=== PATIENT | female | born 1950 | race Caucasian/White ===

== ENCOUNTER 2016-10-27 20:30 | Inpatient (IN) ==
[2016-10-27] MEDS ORDERED: Naloxone 0.4 MG/ML INJ IVP PRN (23:33)
[2016-10-27] MEDS: D5% in 0.45% NACL 1,000 ML IVC SCH (23:58)
[2016-10-28] MEDS: Nicotine 21 MG PATCH.TD24 TD SCH ×3 (00:20→15:44)
[2016-10-28] MEDS: *HR* Morphine 2 MG/ML SYRINGE IVP PRN ×3 (00:20→15:43)
[2016-10-28] MEDS ORDERED: Albuterol 2.5 MG/3 ML NEBULIZER IH PRN (03:26)
--- NOTE | 2016-10-28 03:32 | Internal Med History&Physical ---
Date of Encounter: 10/28/16 Time of Encounter: 00:30 Assessment and Plan (1) Liver masses Current visit: Yes Status: Acute CT abdomen/pelvis shows incidental finding of a 5 x 4*5 cm mass in the right liver lobe, with another small mass superior to this, with compression of hepatic ducts and intrahepatic biliary dilatation. Radiology report suggests metastatic disease but no primary was identified on CT abdomen. Noted to have elevated liver enzymes and total bilirubin. Patient may need percutaneous liver mass biopsy for definitive diagnosis. Given her family history of colon cancer , she may also benefit from repeat colonoscopy. Last colonoscopy was about 3 years ago at which time it was normal, per patient. Will consult GI for further recommendations and workup. Check CEA levels. (2) Abdominal pain Current visit: Yes Status: Acute May be viral gastroenteritis or related to underlying liver mass. Keep nothing by mouth for now, continue IV hydration. Pain control with when necessary IV morphine. Supportive care. Qualifiers: Abdominal location: generalized Qualified Code(s): R10.84 - Generalized abdominal pain (3) Hypokalemia Current visit: Yes Status: Acute May be due to GI losses from diarrhea. Replace with oral potassium chloride in the emergency room, monitor serum potassium. (4) COPD (chronic obstructive pulmonary disease) Current visit: Yes Status: Chronic Not in acute exacerbation. Continue when necessary bronchodilators and supplemental oxygen. Qualifiers: COPD type: unspecified COPD Qualified Code(s): J44.9 - Chronic obstructive pulmonary disease, unspecified (5) Tobacco abuse Current visit: Yes Status: Chronic Smoking cessation counseling given. Patient is not ready to quit smoking at this time. Requests nicotine transdermal patch. (6) Ulcerative colitis Current visit: Yes Status: Chronic continue Sulfasalazine; Qualifiers: Ulcerative colitis location: unspecified ulcerative colitis location Digestive disease complication type: without complication Qualified Code(s): K51.90 - Ulcerative colitis, unspecified, without complications (7) Bipolar disease, chronic Current visit: Yes Status: Chronic resume home meds; (8) Depression Current visit: Yes Status: Chronic Qualifiers: Depression Type: unspecified Qualified Code(s): F32.9 - Major depressive disorder, single episode, unspecified (9) Anxiety Current visit: Yes Status: Chronic Internal Medicine - H&P: HPI Chief complaint: Abdominal pain Admitted From: Emergency Dept Plans for Post Hospital Care: Home History of present illness: Ms. Talamantes is a 66 year old female with history of ulcerative colitis, SLE presents with complaints of diffuse abdominal pain and diarrhea for one week. Patient reports sudden onset of 10/10 diffuse burning and sharp abdominal pain, associated with multiple very soft nonbloody bowel movements per day. No associated nausea, vomiting, fever or chills. No melena or hematochezia. Patient is on treatment for ulcerative colitis and reports no history of frequent diarrhea or hematochezia. No urinary complaints. No similar previous episodes. Past Med Surg Social Fam HX - Past Medical History Medical history: arthritis, COPD, hyperlipidemia, valvular heart disease Psychiatric history: anxiety, bipolar, depression - Past Surgical History Surgical History: appendectomy, knee replacement (Bilateral) - Social History Smoking Status: Current every day smoker Packs per day: 1 1/2 Smokeless Tobacco Status: No Alcohol use: none Drug use: none Occupational status: disabled Current living situation: Home, With Family Activity Level: Independent ambulation Recent Out of Country Travel Within the Last 8 Weeks: No Exposure or Possible Exposure to Illness During Travel: No - Family History Brother Hx Family Cancer: Yes (Colon cancer) Mother Hx Family Endocrine Disorder: Yes (DM) Internal Medicine - H&P: Meds Albuterol Sulfate [Proair HFA] 2 puff IH Q4HR PRN 02/14/15 [History] Buspirone [Buspar] 15 mg PO BID 02/14/15 [History] ClonazePAM [Klonopin] 1 mg PO TID 02/14/15 [History] Sulfasalazine [Azulfidine] 500 mg PO Q6HR 02/14/15 [History] Diltiazem CD (24hr) [Cardizem CD] 180 mg PO DAILY 08/25/15 [History] Pravastatin Sodium [Pravachol] 40 mg PO QAM 08/25/15 [History] traZODone [TraZODone] 50 mg PO HS 09/20/15 [History] lamoTRIgine [Lamictal Xr] 200 mg PO DAILY 01/19/16 [History] ARIPiprazole [Abilify] 10 mg PO DAILY 10/27/16 [History] Benzonatate [Tessalon] 200 mg PO Q8H PRN 10/27/16 [History] Duloxetine HCl [Cymbalta] 120 mg PO DAILY 10/27/16 [History] Calcium 600 + Vit D Tablet 600 unit PO DAILY 10/28/16 [History] Gabapentin [Neurontin] 100 mg PO BID 10/28/16 [History] Vitamin E 100 unit PO DAILY 10/28/16 [History] Allergies griseofulvin [From Fulvicin P/G] Allergy (Verified 09/04/16 21:40) Hives acetaminophen [From Percocet] Adverse Reaction (Verified 09/04/16 21:40) Itching Oxycodone [From Percocet] Adverse Reaction (Verified 09/04/16 21:40) Itching All Systems PM: A 10-system review of systems was performed and is negative for pertinent findings except as documented above in the HPI. - Constitutional Constitutional: no chills, no fever(s), no night sweats - EENT Eyes: no change in vision, no discharge, no pain, no photophobia Ears: no ear discharge, no ear pain, no tinnitus Nose, mouth and throat: no dysphagia, no nasal discharge, no neck pain, no sore throat - Cardiovascular Cardiovascular ROS IM: no chest pain, no diaphoresis, no dyspnea, no lightheadedness, no palpitations, no syncope - Respiratory Respiratory: no cough, no dyspnea, no wheezing, no excessive phlegm production - Gastrointestinal Gastrointestinal: abdominal pain, loose stools - Genitourinary Genitourinary: no change in urinary stream, no dysuria, no flank pain, no hematuria - Musculoskeletal Musculoskeletal ROS IM: no numbness, no tingling - Integumentary Integumentary IM: no rash, no unusual bruising - Neurological Neurological ROS: no confusion, no convulsions, no focal weakness, no numbness, no tingling, no tremor(s) - Hematologic/Lymphatic Hematologic/Lymphatic: no easy bruising - Constitutional Vitals: Temp Pulse Resp BP Pulse Ox 98.2 F 63 14 133/70 89 10/27/16 22:05 10/27/16 22:05 10/27/16 22:05 10/27/16 22:05 10/27/16 22:05 General appearance: Present: mild distress (Due to pain), A&O X 3, answers questions appropriately - Respiratory Respiratory exam: Present: CTAB. Absent: accessory muscle use, rales, rhonchi, wheezes - Cardiovascular Cardiovascular exam: Present: RRR, +S1, +S2. Absent: diastolic murmur, gallop, rubs, systolic murmur - GI/Abdominal GI/Abdominal exam: Present: normal bowel sounds, soft (Diffuse mild tenderness, no guarding or rigidity), no peritoneal signs. Absent: distended, tenderness - Extremities Exam Extremities exam: Present: full ROM, warm, radial pulses palpable and symetrical. Absent: calf tenderness, cyanotic, pedal edema - Neurological Exam Neurological exam: Present: CN II-XII intact, oriented X3, no focal deficits. Absent: pronater drift, facial droop, speech deficit - Skin Skin exam: Present: dry, intact
[2016-10-28] MEDS: *HR* Heparin 5,000 UNIT/ML VIAL SQ SCH ×2 (06:05→18:25)
[2016-10-28] MEDS: sulfaSALAzine 500 MG TABLET PO SCH ×4 (06:05→23:52)
[2016-10-28 06:45] LABS: Basophils # 0.1 K/mcL (0.0-0.2); Basophils % 1.3 %; Eosinophils % 0.1 %; Hematocrit 36.8 % (35.3-44.9); Hemoglobin 12.7 g/dL (11.5-15.4); Immature Granulocytes % 0.3 % (0-4); Lymphocytes # 1.7 K/mcL (0.6-4.6); Lymphocytes % 24.3 %; Mean Corpuscular HGB Conc 34.5 g/dL (31.6-35.5); Mean Corpuscular Hemoglobin 32.3 pg (28.0-33.3); Mean Corpuscular Volume 93.6 fL (83.0-100.0); Mean Platelet Volume 11.6 fL (9.4-12.4); Monocytes # 0.6 K/mcL (0.0-1.3); Monocytes % 8.3 %; Neutrophils # 4.5 K/mcL (1.6-8.9); Platelet Count 205 K/mcL (140-400); Red Blood Count 3.93 M/mcL (3.82-4.97); Red Cell Distribution Width 16.3 % (11.5-14.5); Segmented Neutrophils % 65.7 %
[2016-10-28] MEDS: Diltiazem CD (24hr) 180 MG CAPSULE PO SCH (08:25)
[2016-10-28] MEDS: lamoTRIgine 100 MG TABLET PO SCH (08:25)
[2016-10-28] MEDS: ARIPiprazole 10 MG TABLET PO SCH (08:25)
[2016-10-28] MEDS: clonazePAM 1 MG TABLET PO SCH ×3 (08:25→20:41)
[2016-10-28 09:04] LABS: Prothrombin Time 10.9 Seconds (9.4-12.1)
--- NOTE | 2016-10-28 10:29 | Pre-Sedation Evaluation ---
Pre-sedation evaluation - Pre-sedation checklist Recent Vitals: Last Vital Signs Temp 98.4 F 10/28/16 06:41 Pulse 62 10/28/16 06:41 Resp 20 10/28/16 06:41 BP 136/82 10/28/16 06:41 Pulse Ox 93 10/28/16 06:41 Airway Assessment: Patient can open mouth completely, TMJ function normal, Micrognathia (under-bite, receding chin) absent, Neck with adequate range of motion Dentition: No loose teeth or bridges Possible difficult airway: No ASA Classification *see protocol: CLASS III-Severe systemic disease Plan of Care: Pt appropriate candidate for procedure/moderate/conscious sedation , Risks/benefits of procedure/sedation discussed w/ patient/family
[2016-10-28 12:01] LABS: Carcinoembryonic Antigen 54.3 ng/mL (0-5.0)
[2016-10-28 12:14] LABS: Alanine Aminotransferase 173 Units/L (0-55); Albumin 2.8 g/dL (3.5-5.0); Albumin/Globulin Ratio 0.8 (1.1-2.2); Alkaline Phosphatase 744 Units/L (38-126); BUN/Creatinine Ratio 9 (6-26); Blood Urea Nitrogen 6 mg/dL (7-20); Calcium 9.1 mg/dL (8.6-10.8); Carbon Dioxide 24 mEq/L (19-29); Chloride 105 mEq/L (98-109); Globulin 3.7 g/dL (2.4-3.5); Glucose 157 mg/dL (70-99); Magnesium 1.9 mg/dL (1.6-2.6); Osmolality,Calculated 291 (280-300); Phosphorous 3.4 mg/dL (2.3-4.7); Potassium 3.1 mEq/L (3.5-4.5); Sodium 140 mEq/L (136-145); Total Protein 6.5 g/dL (6.0-8.3); eGFR For African Americans > 60 (> 60); eGFR For Non-African Americans > 60 (> 60)
[2016-10-28 12:16] LABS: Bilirubin,Total 9.5 mg/dL (0.2-1.2)
[2016-10-28 12:29] LABS: Aspartate Amino Transferase 105 Units/L (5-34)
[2016-10-28] MEDS ORDERED: 0.9 % Sodium Chloride 500 ML ONE (13:57)
--- NOTE | 2016-10-28 14:16 | Gastroenterology Consult Note ---
<Seymour Jeffries - Last Filed: 10/28/16 14:11> Date of Encounter: 10/28/16 Time of Encounter: 11:40 - Assessment and plan (1) Liver masses Current Visit: Yes Status: Acute Assessment and plan: CT A/P shows a right hepatic mass measuring 4.3 x 4.7 x 4.4 cm, small second right hepatic lesion more superiorly which likely represent metastatic foci and would be amenable to percutaneous sampling. Moderate intrahepatic biliary dilation due to mass effect in the right hepatic and left hepatic and/or common hepatic duct. No evidence of primary malignancy elsewhere in the abdomen or pelvis. Check MRI abdomen. May need ERCP tomorrow. Consider colonoscopy as well. CEA elevated at 54.3, CA 19-9 and AFP pending. (2) Abdominal pain Current Visit: Yes Status: Acute Assessment and plan: Likely secondary to liver masses. Continue pain control. Qualifiers: Abdominal location: generalized Qualified Code(s): R10.84 - Generalized abdominal pain (3) Ulcerative colitis Current Visit: Yes Status: Chronic Assessment and plan: Continue sulfasalazine. Qualifiers: Ulcerative colitis location: unspecified ulcerative colitis location Digestive disease complication type: without complication Qualified Code(s): K51.90 - Ulcerative colitis, unspecified, without complications - Time Spent With Patient Total time spent is greater than 50% in coordination of care (as documented) at patient's floor/unit and/or counseling patient: GI History of Present Illness - Data of Consult Patient: new to practice Consult date: 10/28/16 Requesting Physician: Derrick Lemus MD - Consult Narrative Reason for consult: Liver mass History of present illness: Ms. Talamantes is a 66 year old female with PMHx of arthritis, COPD, HLD, ulcerative colitis who presented with c/o diffuse abdominal pain and diarrhea for one week. Patient reports sudden onset of 10/10 diffuse burning and sharp abdominal pain, associated with multiple very soft nonbloody bowel movements per day. He denies fever, chills, chest pain, nausea, vomiting, hematemesis, melena, or hematochezia. Patient is on treatment for ulcerative colitis and reports no history of frequent diarrhea or hematochezia. CT A/P shows a right hepatic mass measuring 4.3 x 4.7 x 4.4 cm, small second right hepatic lesion more superiorly which likely represent metastatic foci and would be amenable to percutaneous sampling. Moderate intrahepatic biliary dilation due to mass effect in the right hepatic and left hepatic and/or common hepatic duct. No evidence of primary malignancy elsewhere in the abdomen or pelvis. On 10/27, TB 9 , AST 119, ALT 187, alkaline phosphatase 772. Procedures: Colonoscopy 05/16/2014 Dr. Vale: Nonbleeding internal hemorrhoids. NSAIDs: None Anticoagulation: None Past Med Surg Social Fam HX - Past Medical History Medical history: arthritis, COPD, hyperlipidemia, valvular heart disease Psychiatric history: anxiety, bipolar, depression - Past Surgical History Surgical History: appendectomy, knee replacement (Bilateral) - Social History Smoking Status: Current every day smoker Packs per day: 1 1/2 Smokeless Tobacco Status: No Alcohol use: none Drug use: none - Family History Brother Hx Family Cancer: Yes (Colon cancer) Mother Hx Family Endocrine Disorder: Yes (DM) - Gastrointestinal Gastrointestinal: Present: as per HPI - Constitutional Constitutional: as per HPI - EENT Eyes: as per HPI Ears: Present: as per HPI Nose, mouth and throat: Present: as per HPI - Cardiovascular Cardiovascular ROS: Present: as per HPI - Respiratory Respiratory IM: Present: as per HPI - Genitourinary Genitourinary: Absent: change in color, Urinary frequency - Neurological ROS Neurological GI: Present: as per HPI - Hematologic/Lymphatic Hematologic/Lymphatic pediatric: Present: as per HPI - Musculoskeletal Musculoskeletal ROS GI: Present: as per HPI - Integumentary Integumentary GI: Present: as per HPI - Psychiatric ROS Psychiatric GI: Present: as per HPI - Endocrine Endocrine IM: Present: as per HPI - Constitutional Vitals: Temp Pulse Resp BP Pulse Ox 98.3 F 69 20 133/82 93 10/28/16 12:01 10/28/16 12:01 10/28/16 12:01 10/28/16 12:01 10/28/16 12:01 General appearance: Present: cooperative, A&O X 3, no acute distress, answers questions appropriately - Head Head exam: Present: atraumatic, normocephalic - Eye Eye exam: Present: normal appearance, sclera anicteric - ENT ENT exam: Present: mucous membranes dry - Neck Neck exam general surgery: Present: normal inspection, trachea midline - Respiratory Respiratory exam: Present: CTAB. Absent: rales, rhonchi - Cardiovascular Cardiovascular exam: Present: RRR, +S1, +S2 - GI/Abdominal GI/Abdominal exam: Present: soft, tenderness (RUQ tenderness), no peritoneal signs. Absent: distended, firm, guarding - Rectal Rectal exam: Present: deferred - Extremities Exam Extremities exam: Present: warm - Neurological Exam Neurological exam: Present: no focal deficits - Psychiatric Psychiatric exam: Present: normal affect, normal mood - Skin Skin exam: Present: dry, intact, normal color, warm Results - Labs CBC & Chem 7: 10/28/16 05:37 10/28/16 08:32 Labs: Last Result Calcium 9.1 mg/dL (8.6-10.8) 10/28/16 08:32 Entire Visit Hgb 12.7 g/dL (11.5-15.4) 10/28/16 05:37 Hct 36.8 % (35.3-44.9) 10/28/16 05:37 PT 10.9 Seconds (9.4-12.1) 10/28/16 08:37 Total Bilirubin 9.5 mg/dL (0.2-1.2) H 10/28/16 08:32 AST 105 Units/L (5-34) H 10/28/16 08:32 ALT 173 Units/L (0-55) H 10/28/16 08:32 Carcinoembryonic Ag 54.3 ng/mL (0-5.0) H 10/28/16 08:32 - ABG ABG results: PT/INR, D-dimer PT 10.9 Seconds (9.4-12.1) 10/28/16 08:37 Consult Discharge Plan - Plan Referrals: Marybel Head MD [Primary Care Provider] - <Sondra Mckeon - Last Filed: 10/28/16 17:39> Date of Encounter: 10/28/16 Time of Encounter: 17:00 - Time Spent With Patient Total time spent is greater than 50% in coordination of care (as documented) at patient's floor/unit and/or counseling patient: GI History of Present Illness - Data of Consult Requesting Physician: Derrick Lemus MD - Consult Narrative History of present illness: Ms. Talamantes is a 66 year old female - Constitutional Vitals: Temp Pulse Resp BP Pulse Ox 97.9 F 67 18 161/91 92 10/28/16 16:42 10/28/16 16:42 10/28/16 16:42 10/28/16 16:42 10/28/16 16:42 Results - Labs CBC & Chem 7: 10/28/16 05:37 10/28/16 08:32 Labs: Last Result Calcium 9.1 mg/dL (8.6-10.8) 10/28/16 08:32 Entire Visit Hgb 12.7 g/dL (11.5-15.4) 10/28/16 05:37 Hct 36.8 % (35.3-44.9) 10/28/16 05:37 PT 10.9 Seconds (9.4-12.1) 10/28/16 08:37 Total Bilirubin 9.5 mg/dL (0.2-1.2) H 10/28/16 08:32 AST 105 Units/L (5-34) H 10/28/16 08:32 ALT 173 Units/L (0-55) H 10/28/16 08:32 Carcinoembryonic Ag 54.3 ng/mL (0-5.0) H 10/28/16 08:32 - ABG ABG results: PT/INR, D-dimer PT 10.9 Seconds (9.4-12.1) 10/28/16 08:37 - Impressions Impressions Liver Biopsy CT 10/28/16 00:00 IMPRESSION: Successful CT guided core biopsy liver mass. D/ / Richard Quinn MD / Richard Quinn MD Interpreting Provider: Richard Quinn MD Abdomen MRI 10/28/16 10:51 IMPRESSION: 1. There is a 4.4 cm T2 hypoenhancing hepatic mass with a central scar centered within segment VIII which remains indeterminate. There is significant respiratory motion which limits evaluation on the postcontrast images. Recommend further evaluation with tissue sampling as differential considerations include metastatic disease or cholangiocarcinoma. This does not have the typical enhancing pattern for hepatocellular carcinoma. An adjacent 1.0 cm nodule more superiorly appears to be a continuation of the dominant mass on the MRI. 2. Moderate intrahepatic biliary dilation progressed since 2016. The common bile duct is otherwise normal in caliber. There is questionable focal narrowing along the hepatic duct as well as mid common bile duct. Recommend evaluation with ERCP to evaluate for underlying structures in this region. 3. Mild periportal adenopathy, nonspecific. D/ / 10/28/2016 14:36:17 Leslie Zuluaga MD / [employer] Interpreting Provider: Leslie Zuluaga MD - Attending Attestation I examined this patient and my medical decision-making was reviewed with the PLANT WRAPPER/PA/Advanced Practice Nurse/Resident Physician. I agree with the documented findings, disposition and treatment plan as described except to the extent set forth below. Patient with a liver lesion and jaundice. MRI suspicious for obstruction at the level of common hepatic duct. Patient will have an ERCP done tomorrow with possible stent placement. The liver lesions has been biopsied and wait for the results
[2016-10-28] MEDS: *HR* FentaNYL (PF) 100 MCG/2 ML VIAL IVP PRN ×2 (14:30→14:37)
[2016-10-28] MEDS: *HR* Midazolam HCl 2 MG/2 ML VIAL IVP PRN ×2 (14:31→14:36)
--- NOTE | 2016-10-28 14:48 | Oncology Inp Consult Note ---
<Chan Haddad - Last Filed: 10/28/16 14:43> Date of Encounter: 10/28/16 Time of Encounter: 14:43 Assessment and Plan (1) Liver masses Status: Acute Assessment and plan: CT scan of the abdomen with IV and oral contrast showed incidental finding of right hepatic mass, small second right hepatic lesion more superiorly, likely represent metastatic foci and there is moderate intrahepatic biliary dilatation due to mass effect on the right hepatic and left hepatic and/or common hepatic duct, no evidence of a primary malignancy elsewhere within the abdomen or pelvis. MRI of abdomen showed 4.4 cm T2 hypoenhancing hepatic mass with central scar centered within segment viii which remains indeterminate, which does not have the typical enhancing pattern for hepatocellular carcinoma. GI service was consulted and patient may undergo ERCP tomorrow, IR has been consulted for biopsy of the liver, CA 19-9, AFP, chromogranin A and CA 27.29 are pending at this time, CEA was elevated at 54.3. Will make further recommendations after the diagnostic test results. - Data of Consult Patient: new to practice Consult date: 10/28/16 Requesting Physician: Derrick Lemus MD Primary Care Provider: Marybel Head - Consult Narrative Reason for consult: Liver mass History of present illness: Ms. Talamantes is a 66 year old female with history of ulcerative colitis and lupus who presents to ER with chief complaint of diffuse abdominal pain and diarrhea for [address] scan of the abdomen with IV and oral contrast showed incidental finding of right hepatic mass, small second right hepatic lesion more superiorly, likely represent metastatic foci and there is moderate intrahepatic biliary dilatation due to mass effect on the right hepatic and left hepatic and/or common hepatic duct, no evidence of a primary malignancy elsewhere within the abdomen or pelvis. MRI of abdomen showed 4.4 cm T2 hypoenhancing hepatic mass with central scar centered within segment viii which remains indeterminate, which does not have the typical enhancing pattern for hepatocellular carcinoma. Hematology/oncology service was consulted for further recommendation. Past Med Surg Social Fam HX - Past Medical History Medical history: arthritis, COPD, hyperlipidemia, valvular heart disease Psychiatric history: anxiety, bipolar, depression - Past Surgical History Surgical History: appendectomy, knee replacement (Bilateral) - Social History Smoking Status: Current every day smoker Packs per day: 1 1/2 Smokeless Tobacco Status: No Alcohol use: none Drug use: none - Family History Brother Hx Family Cancer: Yes (Colon cancer) Mother Hx Family Endocrine Disorder: Yes (DM) Medications and Allergies Albuterol Sulfate [Proair HFA] 2 puff IH Q4HR PRN 02/14/15 [History] Buspirone [Buspar] 15 mg PO BID 02/14/15 [History] ClonazePAM [Klonopin] 1 mg PO TID 02/14/15 [History] Sulfasalazine [Azulfidine] 500 mg PO Q6HR 02/14/15 [History] Diltiazem CD (24hr) [Cardizem CD] 180 mg PO DAILY 08/25/15 [History] Pravastatin Sodium [Pravachol] 40 mg PO QAM 08/25/15 [History] traZODone [TraZODone] 100 mg PO HS 09/20/15 [History] ARIPiprazole [Abilify] 10 mg PO DAILY 10/27/16 [History] Duloxetine HCl [Cymbalta] 120 mg PO DAILY 10/27/16 [History] Calcium Carbonate/Vitamin D3 [Calcium 600 + Vit D Tablet] 1 each PO DAILY [History] Gabapentin [Neurontin] 100 mg PO BID 10/28/16 [History] Vitamin E 100 unit PO DAILY 10/28/16 [History] lamoTRIgine [Lamotrigine] 200 mg PO DAILY 10/28/16 [History] Allergies griseofulvin [From Fulvicin P/G] Allergy (Verified 10/28/16 12:40) Hives acetaminophen [From Percocet] Adverse Reaction (Verified 10/28/16 12:40) Itching Oxycodone [From Percocet] Adverse Reaction (Verified 10/28/16 12:40) Itching Review of systems: Patient admits diffuse abdominal pain but denies fever, chill, headache, productive cough, shortness of breath, chest pain, constipation, diarrhea or dysuria. Oncology - Exam - Constitutional Vitals: Temp Pulse Resp BP Pulse Ox 98.3 F 78 20 144/74 96 10/28/16 12:01 10/28/16 14:39 10/28/16 14:39 10/28/16 14:39 10/28/16 14:39 General appearance: cooperative, no acute distress, obese - Head Head exam: Present: atraumatic, normal inspection, normocephalic - Eye Eye exam: Present: EOMI, PERRL Pupils: Present: PERRL - ENT ENT exam: Present: mucous membranes dry, normal exam - Neck Neck exam: Present: full ROM. Absent: lymphadenopathy, tenderness - Respiratory Respiratory exam: Present: CTAB. Absent: accessory muscle use, rales, respiratory distress, wheezes - Cardiovascular Cardiovascular exam: Present: RRR, +S1, +S2. Absent: clicks, gallop, rubs, systolic murmur - GI/Abdominal GI/Abdominal exam: Present: normal bowel sounds, soft, tenderness (Slightly with palpation diffusely). Absent: distended, firm, guarding, rebound, rigid - Extremities Exam Extremities exam: Present: normal inspection. Absent: calf tenderness, tenderness - Neurological Exam Neurological exam: Present: alert, CN II-XII intact, oriented X3, no focal deficits. Absent: altered Oncology - Results - Labs Labs: Short CBC 10/28/16 Range/Units 05:37 WBC 6.9 (4.3-11.1) K/mcL Hgb 12.7 (11.5-15.4) g/dL Hct 36.8 (35.3-44.9) % Plt Count 205 (140-400) K/mcL Neutrophils # 4.5 (1.6-8.9) K/mcL BMP 10/28/16 08:32 Sodium 140 Potassium 3.1 L Chloride 105 Carbon Dioxide 24 BUN 6 L Creatinine 0.67 Glucose 157 H Calcium 9.1 Liver Function 10/28/16 Range/Units 08:32 Total Bilirubin 9.5 H (0.2-1.2) mg/dL AST 105 H (5-34) Units/L ALT 173 H (0-55) Units/L Alkaline Phosphatase 744 H (38-126) Units/L Albumin 2.8 L (3.5-5.0) g/dL Consult Discharge Plan - Plan Referrals: Marybel Head MD [Primary Care Provider] - <Ozzy Melendez - Last Filed: 10/29/16 09:19> Date of Encounter: 10/29/16 - Data of Consult Requesting Physician: Derrick Lemus MD Primary Care Provider: Marybel Head - Consult Narrative History of present illness: Ms. Talamantes is a 66 year old female Oncology - Exam - Constitutional Vitals: Temp Pulse Resp BP Pulse Ox 98.8 F 83 20 148/83 91 10/29/16 07:17 10/29/16 07:17 10/29/16 07:17 10/29/16 07:17 10/29/16 08:40 Oncology - Results - Labs Labs: Short CBC 10/29/16 Range/Units 03:16 WBC 6.7 (4.3-11.1) K/mcL Hgb 12.0 (11.5-15.4) g/dL Hct 35.7 (35.3-44.9) % Plt Count 181 (140-400) K/mcL Neutrophils # 4.5 (1.6-8.9) K/mcL BMP 10/28/16 10/29/16 08:32 03:16 Sodium 140 141 Potassium 3.1 L 3.4 L Chloride 105 106 Carbon Dioxide 24 25 BUN 6 L 4 L Creatinine 0.67 0.57 Glucose 157 H 104 H Calcium 9.1 8.8 Liver Function 10/28/16 10/29/16 Range/Units 08:32 03:16 Total Bilirubin 9.5 H 7.8 H (0.2-1.2) mg/dL AST 105 H 108 H (5-34) Units/L ALT 173 H 157 H (0-55) Units/L Alkaline Phosphatase 744 H 674 H (38-126) Units/L Albumin 2.8 L 2.5 L (3.5-5.0) g/dL - Attending Attestation I examined this patient and my medical decision-making was reviewed with the [employer]/PA/Advanced Practice Nurse/Resident Physician. I agree with the documented findings, disposition and treatment plan as described except to the extent set forth below. Patient currently hospitalized with diffuse liver lesions, obstructive jaundice of unclear etiology base and abdomen CT on initial presentation which are presently reviewed and interpreted. Follow-up tumor markers shows elevated CEA. No previous diagnosis of cancer. She had a particular biopsy by IR yesterday and pathology is pending. She understands that definitive the next several days. She is scheduled for ERCP and biopsy today. Overall, she is comfortable and doing relatively well. No new physical complaints. We discussed diagnostic consideration for her current presentation and she understands the basis for concern of a malignancy. I'm hoping that we can get some clarity regarding diagnosis of malignancy and primary site from her liver biopsy. Further recommendations based on results. If patient is medically optimal for discharge, I will schedule operation follow- up in 7-10 days for further discussion of her results. In the interim, recommended to continue ongoing supportive measures and will follow along with you.
--- NOTE | 2016-10-28 15:38 | Internal Med Progress Note ---
Date of Encounter: 10/28/16 Time of Encounter: 11:30 - Assessment and plan (1) Liver masses Current Visit: Yes Status: Acute Assessment and plan: Elevated CEA 54.3 CT abdomen/pelvis shows incidental finding of a 5 x 4*5 cm mass in the right liver lobe, with another small mass superior to this, with compression of hepatic ducts and intrahepatic biliary dilatation. Radiology report suggests metastatic disease but no primary was identified on CT abdomen. Noted to have elevated liver enzymes and total bilirubin. INR done this a.m WNL For biopsy by IR Oncology consulted Follow result of AFP, CA 19-9, Chromogranin A Follow GI eval (2) Jaundice Current Visit: Yes Status: Acute Assessment and plan: Obstructive secondary to Liver mass ERCP a.m (3) Hypokalemia Current Visit: Yes Status: Acute Assessment and plan: Replaced, continue to monitor (4) COPD (chronic obstructive pulmonary disease) Current Visit: Yes Status: Chronic Assessment and plan: Not wheezing at this time Duonebs prn Qualifiers: COPD type: unspecified COPD Qualified Code(s): J44.9 - Chronic obstructive pulmonary disease, unspecified (5) Tobacco abuse Current Visit: Yes Status: Chronic (6) Ulcerative colitis Current Visit: Yes Status: Chronic Assessment and plan: Continue home meds Qualifiers: Ulcerative colitis location: unspecified ulcerative colitis location Digestive disease complication type: without complication Qualified Code(s): K51.90 - Ulcerative colitis, unspecified, without complications (7) Bipolar disease, chronic Current Visit: Yes Status: Chronic Assessment and plan: Continue home meds (8) Anxiety Current Visit: Yes Status: Chronic Assessment and plan: Continue home meds - Subjective Interval history: Seen and evaluated at bedside patient with lupus , COPD, tobacco abuse, ulcerative colitis She is being worked up for liver mass and jaundice Denies new complains Reports her MM last year and Colonoscopy 3 years ago were normal. Strong family hx of jose armando BELLO Awaiting oncology/IR and GI eval at time of review - Constitutional Vitals: Temp Pulse Resp BP Pulse Ox 98.3 F 72 20 151/77 96 10/28/16 12:01 10/28/16 14:50 10/28/16 14:50 10/28/16 14:50 10/28/16 14:50 General appearance: Present: A&O X 3, morbidly obese, pleasant, answers questions appropriately - Head Head exam: Present: atraumatic, normocephalic - Eye Eye exam: Present: PERRL, scleral icterus, conjuntiva pink Pupils: Present: PERRL - Neck Neck exam general surgery: Present: supple, trachea midline. Absent: lymphadenopathy - Respiratory Respiratory exam: Present: CTAB. Absent: accessory muscle use, rales, rhonchi, wheezes - Cardiovascular Cardiovascular exam: Present: RRR, +S1, +S2. Absent: diastolic murmur, gallop, rubs, systolic murmur - GI/Abdominal GI/Abdominal exam: Present: normal bowel sounds, soft, no peritoneal signs. Absent: distended, tenderness - Extremities Exam Extremities exam: Present: warm, radial pulses palpable and symetrical. Absent : calf tenderness, cyanotic, pedal edema - Neurological Exam Neurological exam: Present: alert, CN II-XII intact, oriented X3, no focal deficits. Absent: pronater drift, facial droop, speech deficit - Skin Skin exam: Present: dry, intact Internal Medicine: Result - Labs CBC & Chem 7: 10/28/16 05:37 10/28/16 08:32 Labs: Short CBC 10/28/16 Range/Units 05:37 WBC 6.9 (4.3-11.1) K/mcL Hgb 12.7 (11.5-15.4) g/dL Hct 36.8 (35.3-44.9) % Plt Count 205 (140-400) K/mcL Neutrophils # 4.5 (1.6-8.9) K/mcL BMP 10/28/16 08:32 Sodium 140 Potassium 3.1 L Chloride 105 Carbon Dioxide 24 BUN 6 L Creatinine 0.67 Glucose 157 H Calcium 9.1 Liver Function 10/28/16 Range/Units 08:32 Total Bilirubin 9.5 H (0.2-1.2) mg/dL AST 105 H (5-34) Units/L ALT 173 H (0-55) Units/L Alkaline Phosphatase 744 H (38-126) Units/L Albumin 2.8 L (3.5-5.0) g/dL - ABG Interpretation ABG results: PT/INR, D-dimer PT 10.9 Seconds (9.4-12.1) 10/28/16 08:37 - Impressions Impressions Liver Biopsy CT 10/28/16 00:00 IMPRESSION: Successful CT guided core biopsy liver mass. D/ / Richard Quinn MD / Richard Quinn MD Interpreting Provider: Richard Quinn MD Abdomen MRI 10/28/16 10:51 IMPRESSION: 1. There is a 4.4 cm T2 hypoenhancing hepatic mass with a central scar centered within segment VIII which remains indeterminate. There is significant respiratory motion which limits evaluation on the postcontrast images. Recommend further evaluation with tissue sampling as differential considerations include metastatic disease or cholangiocarcinoma. This does not have the typical enhancing pattern for hepatocellular carcinoma. An adjacent 1.0 cm nodule more superiorly appears to be a continuation of the dominant mass on the MRI. 2. Moderate intrahepatic biliary dilation progressed since 2016. The common bile duct is otherwise normal in caliber. There is questionable focal narrowing along the hepatic duct as well as mid common bile duct. Recommend evaluation with ERCP to evaluate for underlying structures in this region. 3. Mild periportal adenopathy, nonspecific. D/ / 10/28/2016 14:36:17 Leslie Zuluaga MD / destiny Interpreting Provider: Leslie Zuluaga MD Consult Discharge Plan - Plan Referrals: Marybel Head MD [Primary Care Provider] -
[2016-10-28] MEDS: D5% in 0.45% NACL 1,000 ML IVC SCH (19:16)
[2016-10-28] MEDS: Ondansetron 4 MG/2 ML VIAL IVP PRN (19:18)
[2016-10-28] MEDS: traZODone 50 MG TABLET PO SCH (20:41)
[2016-10-29 03:55] LABS: Basophils # 0.1 K/mcL (0.0-0.2); Basophils % 0.9 %; Eosinophils % 0.1 %; Hematocrit 35.7 % (35.3-44.9); Immature Granulocytes % 0.6 % (0-4); Lymphocytes # 1.6 K/mcL (0.6-4.6); Lymphocytes % 23.2 %; Mean Corpuscular HGB Conc 33.6 g/dL (31.6-35.5); Mean Corpuscular Hemoglobin 31.5 pg (28.0-33.3); Mean Corpuscular Volume 93.7 fL (83.0-100.0); Mean Platelet Volume 11.4 fL (9.4-12.4); Monocytes # 0.6 K/mcL (0.0-1.3); Monocytes % 8.3 %; Neutrophils # 4.5 K/mcL (1.6-8.9); Platelet Count 181 K/mcL (140-400); Red Blood Count 3.81 M/mcL (3.82-4.97); Red Cell Distribution Width 16.6 % (11.5-14.5); Segmented Neutrophils % 66.9 %
[2016-10-29 04:02] LABS: Alanine Aminotransferase 157 Units/L (0-55); Albumin 2.5 g/dL (3.5-5.0); Albumin/Globulin Ratio 0.7 (1.1-2.2); Alkaline Phosphatase 674 Units/L (38-126); Aspartate Amino Transferase 108 Units/L (5-34); BUN/Creatinine Ratio 7 (6-26); Bilirubin,Total 7.8 mg/dL (0.2-1.2); Calcium 8.8 mg/dL (8.6-10.8); Carbon Dioxide 25 mEq/L (19-29); Chloride 106 mEq/L (98-109); Globulin 3.5 g/dL (2.4-3.5); Glucose 104 mg/dL (70-99); Osmolality,Calculated 289 (280-300); Potassium 3.4 mEq/L (3.5-4.5); Sodium 141 mEq/L (136-145); eGFR For African Americans > 60 (> 60); eGFR For Non-African Americans > 60 (> 60)
[2016-10-29 04:03] LABS: Blood Urea Nitrogen 4 mg/dL (7-20)
[2016-10-29] MEDS: *HR* Heparin 5,000 UNIT/ML VIAL SQ SCH ×2 (04:54→17:16)
[2016-10-29] MEDS: sulfaSALAzine 500 MG TABLET PO SCH ×3 (06:01→17:16)
[2016-10-29] MEDS ORDERED: *HR* Propofol 200 MG/20 ML VIAL IVP ONE (07:56)
[2016-10-29] MEDS ORDERED: Lidocaine -MPF 2% 5 ML VIAL INFILT ONE (07:56)
[2016-10-29] MEDS ORDERED: *HR* Succinylcholine 200 MG/10 ML VIAL IVP ONE (07:56)
[2016-10-29] MEDS ORDERED: Ondansetron 4 MG/2 ML VIAL IVP ONE (07:56)
[2016-10-29] MEDS: clonazePAM 1 MG TABLET PO SCH ×3 (08:12→20:07)
[2016-10-29] MEDS: lamoTRIgine 100 MG TABLET PO SCH (08:12)
[2016-10-29] MEDS: Nicotine 21 MG PATCH.TD24 TD SCH (08:12)
[2016-10-29] MEDS: ARIPiprazole 10 MG TABLET PO SCH (08:13)
[2016-10-29] MEDS: Diltiazem CD (24hr) 180 MG CAPSULE PO SCH (08:13)
[2016-10-29] MEDS: D5% in 0.45% NACL 1,000 ML IVC SCH (08:26)
[2016-10-29] MEDS: *HR* Morphine 2 MG/ML SYRINGE IVP PRN ×2 (08:26→21:52)
[2016-10-29] MEDS ORDERED: Ibuprofen 400 MG TABLET PO ONE (09:01)
--- NOTE | 2016-10-29 10:49 | Internal Med Progress Note ---
Date of Encounter: 10/29/16 Time of Encounter: 10:49 - Assessment and plan (1) Liver masses Current Visit: Yes Status: Acute Assessment and plan: Elevated CEA 54.3 CT abdomen/pelvis shows incidental finding of a 5 x 4*5 cm mass in the right liver lobe, with another small mass superior to this, with compression of hepatic ducts and intrahepatic biliary dilatation. Radiology report suggests metastatic disease but no primary was identified on CT abdomen. Noted to have elevated liver enzymes and total bilirubin. INR done this a.m WNL s/p by IR, follow reports Oncology review noted For ERCP and or stent placement today GI input appreciated (2) Jaundice Current Visit: Yes Status: Acute Assessment and plan: Obstructive secondary to Liver mass ERCP and possible stenting today (3) Hypokalemia Current Visit: Yes Status: Acute Assessment and plan: Replaced, continue to monitor (4) COPD (chronic obstructive pulmonary disease) Current Visit: Yes Status: Chronic Assessment and plan: Not wheezing at this time Duonebs prn Qualifiers: COPD type: unspecified COPD Qualified Code(s): J44.9 - Chronic obstructive pulmonary disease, unspecified (5) Tobacco abuse Current Visit: Yes Status: Chronic Assessment and plan: Cessation counselling (6) Ulcerative colitis Current Visit: Yes Status: Chronic Assessment and plan: Continue home meds Qualifiers: Ulcerative colitis location: unspecified ulcerative colitis location Digestive disease complication type: without complication Qualified Code(s): K51.90 - Ulcerative colitis, unspecified, without complications (7) Bipolar disease, chronic Current Visit: Yes Status: Chronic Assessment and plan: Continue home meds (8) Anxiety Current Visit: Yes Status: Chronic Assessment and plan: Continue home meds - Subjective Interval history: Seen and evaluated at bedside patient with lupus , COPD, tobacco abuse, ulcerative colitis She is being worked up for liver mass and jaundice s/p IR guided liver biopsy 10/29 Awaiting CA-19, AFP CEA elevated Oncology review noted, for ERCP this a.m Complained of a headache earlier this morning - Constitutional Vitals: Temp Pulse Resp BP Pulse Ox 98.8 F 83 20 148/83 91 10/29/16 07:17 10/29/16 07:17 10/29/16 07:17 10/29/16 07:17 10/29/16 08:40 General appearance: Present: A&O X 3, morbidly obese, pleasant, answers questions appropriately - Head Head exam: Present: atraumatic - Eye Eye exam: Present: PERRL, scleral icterus, conjuntiva pink - ENT ENT exam: Present: mucous membranes moist - Neck Neck exam general surgery: Present: normal inspection - Respiratory Respiratory exam: Present: CTAB. Absent: rales, rhonchi, stridor, wheezes - Cardiovascular Cardiovascular exam: Present: RRR, +S1, +S2. Absent: diastolic murmur, gallop, rubs, systolic murmur - GI/Abdominal GI/Abdominal exam: Present: normal bowel sounds, soft, no peritoneal signs. Absent: distended, tenderness - Extremities Exam Extremities exam: Present: warm, radial pulses palpable and symetrical. Absent : calf tenderness, cyanotic, pedal edema - Neurological Exam Neurological exam: Present: alert, oriented X3, no focal deficits. Absent: pronater drift, facial droop, speech deficit - Skin Skin exam: Present: dry, intact. Absent: normal color Internal Medicine: Result - Labs CBC & Chem 7: 10/29/16 03:16 10/29/16 03:16 Labs: Short CBC 10/29/16 Range/Units 03:16 WBC 6.7 (4.3-11.1) K/mcL Hgb 12.0 (11.5-15.4) g/dL Hct 35.7 (35.3-44.9) % Plt Count 181 (140-400) K/mcL Neutrophils # 4.5 (1.6-8.9) K/mcL BMP 10/28/16 10/29/16 08:32 03:16 Sodium 140 141 Potassium 3.1 L 3.4 L Chloride 105 106 Carbon Dioxide 24 25 BUN 6 L 4 L Creatinine 0.67 0.57 Glucose 157 H 104 H Calcium 9.1 8.8 Liver Function 10/28/16 10/29/16 Range/Units 08:32 03:16 Total Bilirubin 9.5 H 7.8 H (0.2-1.2) mg/dL AST 105 H 108 H (5-34) Units/L ALT 173 H 157 H (0-55) Units/L Alkaline Phosphatase 744 H 674 H (38-126) Units/L Albumin 2.8 L 2.5 L (3.5-5.0) g/dL - ABG Interpretation ABG results: PT/INR, D-dimer PT 10.9 Seconds (9.4-12.1) 10/28/16 08:37 - Impressions Impressions Liver Biopsy CT 10/28/16 00:00 IMPRESSION: Successful CT guided core biopsy liver mass. D/ / Richard Quinn MD / Richard Quinn MD Interpreting Provider: Richard Quinn MD Abdomen MRI 10/28/16 10:51 IMPRESSION: 1. There is a 4.4 cm T2 hypoenhancing hepatic mass with a central scar centered within segment VIII which remains indeterminate. There is significant respiratory motion which limits evaluation on the postcontrast images. Recommend further evaluation with tissue sampling as differential considerations include metastatic disease or cholangiocarcinoma. This does not have the typical enhancing pattern for hepatocellular carcinoma. An adjacent 1.0 cm nodule more superiorly appears to be a continuation of the dominant mass on the MRI. 2. Moderate intrahepatic biliary dilation progressed since 2016. The common bile duct is otherwise normal in caliber. There is questionable focal narrowing along the hepatic duct as well as mid common bile duct. Recommend evaluation with ERCP to evaluate for underlying structures in this region. 3. Mild periportal adenopathy, nonspecific. D/ / 10/28/2016 14:36:17 Leslie Zuluaga MD / destiny Interpreting Provider: Leslie Zuluaga MD Consult Discharge Plan - Plan Referrals: Marybel Head MD [Primary Care Provider] -
--- NOTE | 2016-10-29 11:03 | Anesthesia Evaluation PreOp ---
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) Other Medical History: Hepatic (5x4x5 cm mass R liver lobe), Other (ulcerative colitis) Anesthesia History: No Prior Anesthetic Complications Alcohol Use: none Drug use: none Medications and Allergies Albuterol Sulfate [Proair HFA] 2 puff IH Q4HR PRN 02/14/15 [History] Buspirone [Buspar] 15 mg PO BID 02/14/15 [History] ClonazePAM [Klonopin] 1 mg PO TID 02/14/15 [History] Sulfasalazine [Azulfidine] 500 mg PO Q6HR 02/14/15 [History] Diltiazem CD (24hr) [Cardizem CD] 180 mg PO DAILY 08/25/15 [History] Pravastatin Sodium [Pravachol] 40 mg PO QAM 08/25/15 [History] traZODone [TraZODone] 100 mg PO HS 09/20/15 [History] ARIPiprazole [Abilify] 10 mg PO DAILY 10/27/16 [History] Duloxetine HCl [Cymbalta] 120 mg PO DAILY 10/27/16 [History] Calcium Carbonate/Vitamin D3 [Calcium 600 + Vit D Tablet] 1 each PO DAILY [History] Gabapentin [Neurontin] 100 mg PO BID 10/28/16 [History] Vitamin E 100 unit PO DAILY 10/28/16 [History] lamoTRIgine [Lamotrigine] 200 mg PO DAILY 10/28/16 [History] Allergies griseofulvin [From Fulvicin P/G] Allergy (Verified 10/28/16 12:40) Hives acetaminophen [From Percocet] Adverse Reaction (Verified 10/28/16 12:40) Itching Oxycodone [From Percocet] Adverse Reaction (Verified 10/28/16 12:40) Itching - Meds/Allergy Pre-op Review Medications Reviewed: Yes Allergies Reviewed: Yes Beta Blockers on Current Med List: No Anesthesia Results - Labs 10/29/16 03:16 10/29/16 03:16 - Imaging EKG: report reviewed, image reviewed (SR) Anesthesia Exam Last Vital Signs Temp 98.8 F 10/29/16 07:17 Pulse 83 10/29/16 07:17 Resp 20 10/29/16 07:17 BP 148/83 10/29/16 07:17 Pulse Ox 91 10/29/16 08:40 Weight: 78 kg NPO (# of Hours): >> 8 hrs - HEENT Pupil (Motor): Pupils equal, EOMI Mallampati: III Teeth: Poor dentition Oral Opening: Greater than 3 - DROP FORGE OPERATOR LOC: Oriented DROP FORGE OPERATOR Motor: Normal RUE, Normal LUE, Normal RLE, Normal LLE, Normal Face - Cardiac Rhythm: Regular Murmur: None - Pulmonary Breath Sounds: bilateral Clear Respiratory Effort: Symmetrical Anesthesia Assess/Plan ASA Score: 3 Modified [place] Scale for Level of Consciousness: Cooperative, oriented, and tranquil Anesthetic Plan: General Monitoring Plan: Standard Monitors Recovery Plan: PACU
--- NOTE | 2016-10-29 14:53 | Anesthesia Evaluation Post Op ---
Date of Encounter: 10/29/16 Time of Encounter: 13:19 - Vital Signs Vital Signs: Last Vital Signs Temp 99.2 F 10/29/16 13:24 Pulse 71 10/29/16 13:24 Resp 20 10/29/16 13:24 BP 157/87 10/29/16 13:24 Pulse Ox 89 10/29/16 13:24 - Lungs Lungs: Clear Ascult./Percussion - Airway Airway: Non-obstructed - Cardiovascular Regular Rate - Mental Status Mental Status: Alert & Oriented, Answers Appropriately - Pain Pain Scale: 2 - Nausea Vomiting Nausea Vomiting: Not Present - Hydration Hydration: Ice chips - Discharge PostOp Status: Transfer Patient to floor
[2016-10-29] MEDS: traZODone 50 MG TABLET PO SCH (20:07)
[2016-10-30] MEDS: D5% in 0.45% NACL 1,000 ML IVC SCH ×2 (00:05→15:50)
[2016-10-30] MEDS: sulfaSALAzine 500 MG TABLET PO SCH ×4 (00:05→17:17)
[2016-10-30] MEDS: *HR* Heparin 5,000 UNIT/ML VIAL SQ SCH ×2 (05:37→17:16)
[2016-10-30 06:31] LABS: Alanine Aminotransferase 155 Units/L (0-55); Albumin 2.4 g/dL (3.5-5.0); Albumin/Globulin Ratio 0.7 (1.1-2.2); Alkaline Phosphatase 700 Units/L (38-126); Aspartate Amino Transferase 103 Units/L (5-34); BUN/Creatinine Ratio 12 (6-26); Bilirubin,Direct 6.9 mg/dL (0.0-0.5); Bilirubin,Indirect 1.6 mg/dL (0.0-1.2); Bilirubin,Total 8.5 mg/dL (0.2-1.2); Blood Urea Nitrogen 7 mg/dL (7-20); Calcium 8.6 mg/dL (8.6-10.8); Carbon Dioxide 27 mEq/L (19-29); Chloride 104 mEq/L (98-109); Globulin 3.6 g/dL (2.4-3.5); Glucose 123 mg/dL (70-99); Osmolality,Calculated 287 (280-300); Potassium 3.6 mEq/L (3.5-4.5); Sodium 139 mEq/L (136-145); eGFR For African Americans > 60 (> 60); eGFR For Non-African Americans > 60 (> 60)
[2016-10-30] MEDS: *HR* Morphine 2 MG/ML SYRINGE IVP PRN ×3 (07:32→20:23)
[2016-10-30] MEDS: Diltiazem CD (24hr) 180 MG CAPSULE PO SCH (07:35)
[2016-10-30] MEDS: clonazePAM 1 MG TABLET PO SCH ×3 (07:35→20:23)
[2016-10-30] MEDS: Nicotine 21 MG PATCH.TD24 TD SCH (07:35)
[2016-10-30] MEDS: lamoTRIgine 100 MG TABLET PO SCH (07:35)
[2016-10-30] MEDS: ARIPiprazole 10 MG TABLET PO SCH (07:35)
[2016-10-30] MEDS ORDERED: Ibuprofen 400 MG TABLET PO PRN (10:24)
--- NOTE | 2016-10-30 10:25 | Internal Med Progress Note ---
Date of Encounter: 10/30/16 Time of Encounter: 10:22 - Assessment and plan (1) Liver masses Current Visit: Yes Status: Acute Assessment and plan: Elevated CEA 54.3, CA19-[address] abdomen/pelvis shows incidental finding of a 5 x 4*5 cm mass in the right liver lobe, with another small mass superior to this, with compression of hepatic ducts and intrahepatic biliary dilatation. Radiology report suggests metastatic disease but no primary was identified on CT abdomen. Noted to have elevated liver enzymes and total bilirubin. INR WNL Liver biopsy report is pending s/p ERCP for obstructive jaundice, LFTS unchanged Per GI patient may need a colonoscopy/PTC Continue to monitor (2) Jaundice Current Visit: Yes Status: Acute Assessment and plan: Obstructive secondary to Liver mass ERCP and stenting done 10/29 well tolerated (3) Hypokalemia Current Visit: Yes Status: Resolved Assessment and plan: Replaced, continue to monitor (4) COPD (chronic obstructive pulmonary disease) Current Visit: Yes Status: Chronic Assessment and plan: Not wheezing at this time Duonebs prn Qualifiers: COPD type: unspecified COPD Qualified Code(s): J44.9 - Chronic obstructive pulmonary disease, unspecified (5) Tobacco abuse Current Visit: Yes Status: Chronic Assessment and plan: Cessation counselling (6) Ulcerative colitis Current Visit: Yes Status: Chronic Assessment and plan: Continue home meds Qualifiers: Ulcerative colitis location: unspecified ulcerative colitis location Digestive disease complication type: without complication Qualified Code(s): K51.90 - Ulcerative colitis, unspecified, without complications (7) Bipolar disease, chronic Current Visit: Yes Status: Chronic Assessment and plan: Continue home meds (8) Anxiety Current Visit: Yes Status: Chronic Assessment and plan: Continue home meds - Subjective Interval history: Seen and evaluated at bedside patient with lupus , COPD, tobacco abuse, ulcerative colitis She is being worked up for liver mass and jaundice s/p IR guided liver biopsy 10/29 CA-19-9 3927. AFP WNL. CEA 54.3 s/p ERCP 10/29, difficult procedure, per GI, patient needs LFT monitoring over the weekend and may need PTC on Tuesday by IR She remains clinically stable LFT today with no significant improvement Patient complains of headaches - Constitutional Vitals: Temp Pulse Resp BP Pulse Ox 98.2 F 75 16 149/89 96 10/30/16 07:24 10/30/16 07:24 10/30/16 07:24 10/30/16 07:24 10/30/16 07:24 General appearance: Present: A&O X 3, pleasant, obese, answers questions appropriately - Head Head exam: Present: atraumatic, normocephalic - Eye Eye exam: Present: PERRL, scleral icterus, conjuntiva pink Pupils: Present: PERRL - Neck Neck exam general surgery: Present: supple, trachea midline. Absent: lymphadenopathy - Respiratory Respiratory exam: Present: CTAB. Absent: accessory muscle use, rales, rhonchi, wheezes - Cardiovascular Cardiovascular exam: Present: RRR, +S1, +S2. Absent: diastolic murmur, gallop, rubs, systolic murmur - GI/Abdominal GI/Abdominal exam: Present: normal bowel sounds, soft, no peritoneal signs. Absent: distended, tenderness - Extremities Exam Extremities exam: Present: warm, radial pulses palpable and symetrical. Absent : calf tenderness, cyanotic, pedal edema - Neurological Exam Neurological exam: Present: alert, CN II-XII intact, oriented X3, no focal deficits. Absent: pronater drift, facial droop, speech deficit - Skin Skin exam: Present: dry. Absent: normal color Internal Medicine: Result - Labs CBC & Chem 7: 10/29/16 03:16 10/30/16 05:39 Labs: BMP 10/30/16 05:39 Sodium 139 Potassium 3.6 Chloride 104 Carbon Dioxide 27 BUN 7 Creatinine 0.60 Glucose 123 H Calcium 8.6 Liver Function 10/30/16 Range/Units 05:39 Total Bilirubin 8.5 H (0.2-1.2) mg/dL Direct Bilirubin 6.9 H (0.0-0.5) mg/dL AST 103 H (5-34) Units/L ALT 155 H (0-55) Units/L Alkaline Phosphatase 700 H (38-126) Units/L Albumin 2.4 L (3.5-5.0) g/dL - ABG Interpretation ABG results: PT/INR, D-dimer PT 10.9 Seconds (9.4-12.1) 10/28/16 08:37 - Impressions Impressions Abdomen MRI 10/28/16 10:51 IMPRESSION: 1. There is a 4.4 cm T2 hypoenhancing hepatic mass with a central scar centered within segment VIII which remains indeterminate. There is significant respiratory motion which limits evaluation on the postcontrast images. Recommend further evaluation with tissue sampling as differential considerations include metastatic disease or cholangiocarcinoma. This does not have the typical enhancing pattern for hepatocellular carcinoma. An adjacent 1.0 cm nodule more superiorly appears to be a continuation of the dominant mass on the MRI. 2. Moderate intrahepatic biliary dilation progressed since 2016. The common bile duct is otherwise normal in caliber. There is questionable focal narrowing along the hepatic duct as well as mid common bile duct. Recommend evaluation with ERCP to evaluate for underlying structures in this region. 3. Mild periportal adenopathy, nonspecific. D/ / 10/28/2016 14:36:17 Leslie Zuluaga MD / destiny Interpreting Provider: Leslie Zluuaga MD Cath/Invasive Procedure 10/29/16 00:00 IMPRESSION: ERCP with contrast injection and stent placement. Please see surgical report for complete details. D/ / Vincent Strauss MD / Vincent Strauss MD Interpreting Provider: Vincent Strauss MD Consult Discharge Plan - Plan Referrals: Marybel Head MD [Primary Care Provider] -
[2016-10-30] MEDS: traZODone 50 MG TABLET PO SCH (23:10)
[2016-10-31] MEDS: sulfaSALAzine 500 MG TABLET PO SCH ×5 (00:08→23:52)
[2016-10-31] MEDS: *HR* Morphine 2 MG/ML SYRINGE IVP PRN ×5 (03:29→20:39)
[2016-10-31] MEDS: D5% in 0.45% NACL 1,000 ML IVC SCH ×2 (04:45→18:25)
[2016-10-31 05:09] LABS: Albumin 2.3 g/dL (3.5-5.0); Albumin/Globulin Ratio 0.6 (1.1-2.2); Bilirubin,Direct 6.2 mg/dL (0.0-0.5); Globulin 3.8 g/dL (2.4-3.5); Total Protein 6.1 g/dL (6.0-8.3)
[2016-10-31 05:10] LABS: Bilirubin,Total 8.2 mg/dL (0.2-1.2)
[2016-10-31] MEDS: *HR* Heparin 5,000 UNIT/ML VIAL SQ SCH ×2 (06:24→17:15)
[2016-10-31] MEDS: ARIPiprazole 10 MG TABLET PO SCH (07:37)
[2016-10-31] MEDS: Diltiazem CD (24hr) 180 MG CAPSULE PO SCH (07:37)
[2016-10-31] MEDS: lamoTRIgine 100 MG TABLET PO SCH (07:38)
[2016-10-31] MEDS: Nicotine 21 MG PATCH.TD24 TD SCH (07:38)
[2016-10-31] MEDS: clonazePAM 1 MG TABLET PO SCH ×3 (07:38→20:40)
--- NOTE | 2016-10-31 10:38 | Internal Med Progress Note ---
Date of Encounter: 10/31/16 Time of Encounter: 10:38 - Assessment and plan (1) Liver masses Current Visit: Yes Status: Acute Assessment and plan: Elevated CEA 54.3, CA19-[address] abdomen/pelvis shows incidental finding of a 5 x 4*5 cm mass in the right liver lobe, with another small mass superior to this, with compression of hepatic ducts and intrahepatic biliary dilatation. Radiology report suggests metastatic disease but no primary was identified on CT abdomen. Noted to have elevated liver enzymes and total bilirubin. INR WNL Liver biopsy report is pending s/p ERCP for obstructive jaundice, LFTS unchanged Per GI patient may need a colonoscopy/PTC Will recheck LFT a.m, may consult IR depending on result Continue to monitor (2) Jaundice Current Visit: Yes Status: Acute Assessment and plan: Obstructive secondary to Liver mass ERCP and stenting done 10/29 well tolerated (3) Hypokalemia Current Visit: Yes Status: Resolved Assessment and plan: Replaced, continue to monitor (4) COPD (chronic obstructive pulmonary disease) Current Visit: Yes Status: Chronic Assessment and plan: Not wheezing at this time Duonebs prn Qualifiers: COPD type: unspecified COPD Qualified Code(s): J44.9 - Chronic obstructive pulmonary disease, unspecified (5) Tobacco abuse Current Visit: Yes Status: Chronic Assessment and plan: Cessation counselling (6) Ulcerative colitis Current Visit: Yes Status: Chronic Assessment and plan: Continue home meds Qualifiers: Ulcerative colitis location: unspecified ulcerative colitis location Digestive disease complication type: without complication Qualified Code(s): K51.90 - Ulcerative colitis, unspecified, without complications (7) Bipolar disease, chronic Current Visit: Yes Status: Chronic Assessment and plan: Continue home meds (8) Anxiety Current Visit: Yes Status: Chronic Assessment and plan: Continue home meds - Subjective Interval history: Seen and evaluated at bedside patient with lupus , COPD, tobacco abuse, ulcerative colitis She is being worked up for liver mass and jaundice s/p IR guided liver biopsy 10/29 CA-19-9 3927. AFP WNL. CEA 54.3 s/p ERCP 10/29, difficult procedure, per GI, patient needs LFT monitoring over the weekend and may need PTC on Tuesday by IR She remains clinically stable LFT today with no significant improvement Otherwise she is clinically stable, she had one episode of abdominal pain this morning, will check lipase - Constitutional Vitals: Temp Pulse Resp BP Pulse Ox 98.0 F 65 20 147/72 94 10/31/16 07:26 10/31/16 07:26 10/31/16 07:26 10/31/16 07:26 10/31/16 07:26 General appearance: Present: A&O X 3, pleasant, obese, answers questions appropriately - Head Head exam: Present: atraumatic, normocephalic - Eye Eye exam: Present: PERRL, scleral icterus, conjuntiva pink Pupils: Present: PERRL - Neck Neck exam general surgery: Present: supple, trachea midline. Absent: lymphadenopathy - Respiratory Respiratory exam: Present: CTAB. Absent: accessory muscle use, rales, rhonchi, wheezes - Cardiovascular Cardiovascular exam: Present: RRR, +S1, +S2. Absent: diastolic murmur, gallop, rubs, systolic murmur - GI/Abdominal GI/Abdominal exam: Present: normal bowel sounds, soft, tenderness (vague epigastric tenderness), no peritoneal signs. Absent: distended - Extremities Exam Extremities exam: Present: warm, radial pulses palpable and symetrical. Absent : calf tenderness, cyanotic, pedal edema - Neurological Exam Neurological exam: Present: alert, CN II-XII intact, oriented X3, no focal deficits. Absent: pronater drift, facial droop, speech deficit - Skin Skin exam: Present: dry, intact. Absent: normal color Internal Medicine: Result - Labs CBC & Chem 7: 10/29/16 03:16 10/30/16 05:39 Labs: Liver Function 10/31/16 Range/Units 04:26 Total Bilirubin 8.2 H (0.2-1.2) mg/dL Direct Bilirubin 6.2 H (0.0-0.5) mg/dL AST 97 H (5-34) Units/L ALT 142 H (0-55) Units/L Alkaline Phosphatase 678 H (38-126) Units/L Albumin 2.3 L (3.5-5.0) g/dL - ABG Interpretation ABG results: PT/INR, D-dimer PT 10.9 Seconds (9.4-12.1) 10/28/16 08:37 Consult Discharge Plan - Plan Referrals: Marybel Head MD [Primary Care Provider] -
--- NOTE | 2016-10-31 10:41 | Oncology Inp Progress Note ---
Date of Encounter: 10/31/16 Time of Encounter: 09:00 (1) Liver masses Current Visit: Yes Status: Acute Assessment and plan: Patient with liver lesions, hyperbilirubinemia, MRI did not typical for hepatocellular carcinoma possible differential metastatic disease versus cholangiocarcinoma. Patient had undergone a liver biopsy as well as ERCP sampling stent placement, await final pathology. Bilirubin is steady, possible ? Percutaneous intervention next week for biliary drainage. Tumor marker CEA was elevated, depending on biopsy results further GI workup. Pain under control currently on morphine as needed. Updated plan with patient and she is understands. Will follow. Oncology: Subj Interval history: Pain under control on morphine prn. s/p liver bx and endoscopy/ERCP procedures - Constitutional Vitals: Vital Signs Temp Pulse Resp BP Pulse Ox 10/31/16 07:26 98.0 F 65 20 147/72 94 10/31/16 06:58 93 10/31/16 03:31 98.4 F 68 16 136/84 93 10/30/16 23:10 98.8 F 71 14 94 10/30/16 18:54 98.5 F 74 14 128/83 94 10/30/16 15:18 94 10/30/16 14:46 97.6 F 70 18 125/75 94 10/30/16 11:14 98.0 F 69 20 144/82 95 Intake and Output 10/30/16 10/31/16 10/31/16 23:59 07:59 15:59 Intake Total 720 / 720 1333 / 1333 360 / 360 Output Total 850 / 850 1000 / 1000 300 / 300 Balance -130 / -130 333 / 333 60 / 60 Intake: IV Fluids 1213 / 1213 D5% And 0.45% Nacl 1000 1213 / 1213 Ml Bag 1,000 ML @ 75 mls/ hr IVC .[id number] [facility] Rx#: [id number] Oral 720 / 720 120 / 120 360 / 360 Output: Urine 850 / 850 1000 / 1000 300 / 300 Other: Meal Dinner Breakfast Percent of Meal Consumed 90% 100% Weight 78.1 kg Patient Weight 10/31/16 23:59 Weight 78.1 kg General appearance: average body habitus - Head Head exam: Present: atraumatic, normal inspection - Eye Eye exam: Present: scleral icterus - ENT ENT exam: Present: mucous membranes moist - Respiratory Respiratory exam: Present: CTAB - Cardiovascular Cardiovascular exam: Present: +S1, +S2 - GI/Abdominal GI/Abdominal exam: Present: distended, normal bowel sounds, soft - Extremities Exam Extremities exam: Present: normal inspection - Neurological Exam Neurological exam: Present: alert, oriented X3 - Skin Skin exam: Present: dry, normal color Oncology: Obj Data - Labs CBC & Chem 7: 10/29/16 03:16 10/30/16 05:39 Labs: Laboratory Results - last 24 hr 10/31/16 04:26 Total Bilirubin 8.2 H Direct Bilirubin 6.2 H Indirect Bilirubin 2.0 H AST 97 H ALT 142 H Alkaline Phosphatase 678 H Serum Total Protein 6.1 Albumin 2.3 L Globulin 3.8 H Albumin/Globulin Ratio 0.6 L - Imaging and cardiology CT scan - abdomen Status: image reviewed by me - ABG Interpretation ABG results: PT/INR, D-dimer PT 10.9 Seconds (9.4-12.1) 10/28/16 08:37 Consult Discharge Plan - Plan Referrals: Marybel Head MD [Primary Care Provider] -
[2016-10-31] MEDS: traZODone 50 MG TABLET PO SCH (20:39)
[2016-11-01] MEDS: D5% in 0.45% NACL 1,000 ML IVC SCH ×2 (04:38→09:21)
[2016-11-01] MEDS: *HR* Morphine 2 MG/ML SYRINGE IVP PRN ×2 (04:43→23:50)
[2016-11-01] MEDS: sulfaSALAzine 500 MG TABLET PO SCH ×4 (05:34→23:50)
[2016-11-01] MEDS: *HR* Heparin 5,000 UNIT/ML VIAL SQ SCH (05:34)
[2016-11-01 06:10] LABS: Basophils # 0.1 K/mcL (0.0-0.2); Basophils % 0.8 %; Eosinophils % 0.2 %; Hematocrit 34.3 % (35.3-44.9); Hemoglobin 11.6 g/dL (11.5-15.4); Immature Granulocytes % 1.3 % (0-4); Lymphocytes # 1.3 K/mcL (0.6-4.6); Lymphocytes % 20.3 %; Mean Corpuscular HGB Conc 33.8 g/dL (31.6-35.5); Mean Corpuscular Hemoglobin 31.4 pg (28.0-33.3); Mean Platelet Volume 11.7 fL (9.4-12.4); Monocytes # 0.6 K/mcL (0.0-1.3); Monocytes % 9.1 %; Neutrophils # 4.4 K/mcL (1.6-8.9); Platelet Count 179 K/mcL (140-400); Red Blood Count 3.69 M/mcL (3.82-4.97); Red Cell Distribution Width 17.2 % (11.5-14.5); Segmented Neutrophils % 68.3 %
[2016-11-01 06:27] LABS: Albumin 2.3 g/dL (3.5-5.0); Albumin/Globulin Ratio 0.6 (1.1-2.2); Bilirubin,Direct 6.8 mg/dL (0.0-0.5); Bilirubin,Indirect 1.7 mg/dL (0.0-1.2); Bilirubin,Total 8.5 mg/dL (0.2-1.2); Globulin 3.8 g/dL (2.4-3.5); Total Protein 6.1 g/dL (6.0-8.3)
[2016-11-01 07:18] LABS: Cancer Antigen 27.29 14.2 U/mL (0.0-40.0)
[2016-11-01] MEDS: Diltiazem CD (24hr) 180 MG CAPSULE PO SCH (09:22)
[2016-11-01] MEDS: lamoTRIgine 100 MG TABLET PO SCH (09:22)
[2016-11-01] MEDS: ARIPiprazole 10 MG TABLET PO SCH (09:23)
[2016-11-01] MEDS: clonazePAM 1 MG TABLET PO SCH ×3 (09:23→21:12)
[2016-11-01] MEDS: Nicotine 21 MG PATCH.TD24 TD SCH (09:23)
--- NOTE | 2016-11-01 11:22 | Oncology Inp Progress Note ---
<Kash Haddad - Last Filed: 11/01/16 14:07> Date of Encounter: 11/01/16 Time of Encounter: 11:22 (1) Liver masses Current Visit: Yes Status: Acute Assessment and plan: MRI of abdomen showed 4.4 cm T2 hypoenhancing hepatic mass with central scar centered within segment viii which remains indeterminate, which does not have the typical enhancing pattern for hepatocellular carcinoma. GI service was consulted and the patient had ERCP last week, IR has been consulted and biopsy of the liver was done, worsening total bilirubin level today, tumor marker AFP and CA 27.29 were normal, but CEA, CA 19-9 and chromogranin A were elevated, final pathology report is pending at this time, IR has been consulted today again for possible percutaneous intervention for biliary drainage, possible colonoscopy prior to discharge per GI service, will make further recommendations after reviewing the final pathology report. Oncology: Subj Interval history: Patient seen and examined. Complaint of slight diffuse abdominal pain plus some nausea. - Constitutional Vitals: Vital Signs Temp Pulse Resp BP Pulse Ox 11/01/16 07:59 98.4 F 66 20 150/80 93 11/01/16 04:19 99.1 F 68 22 159/78 94 10/31/16 23:59 98.9 F 69 26 150/72 94 10/31/16 19:05 99.7 F H 70 24 145/74 92 10/31/16 15:54 98.1 F 73 24 146/88 93 10/31/16 15:29 92 10/31/16 12:46 98.7 F 72 18 148/83 92 Intake and Output 10/31/16 11/01/16 11/01/16 23:59 07:59 15:59 Intake Total 448 / 448 1250 / 1250 560 / 560 Output Total 900 / 900 800 / 800 750 / 750 Balance -452 / -452 450 / 450 -190 / -190 Intake: IV Fluids 208 / 208 1000 / 1000 D5% And 0.45% Nacl 1000 208 / 208 1000 / 1000 Ml Bag 1,000 ML @ 75 mls/ hr IVC .[id number] [facility] Rx#: [id number] Oral 240 / 240 250 / 250 560 / 560 Output: Urine 900 / 900 800 / 800 750 / 750 Other: Meal Dinner Breakfast Percent of Meal Consumed 25% 25% Stool Size Large Stool Consistency soft Stool Characteristics Normal for Patient Stool Color Brown Weight 80.966 kg Patient Weight 11/01/16 23:59 Weight 80.966 kg - Respiratory Respiratory exam: Present: CTAB. Absent: accessory muscle use, rales, respiratory distress, wheezes - Cardiovascular Cardiovascular exam: Present: RRR, +S1, +S2. Absent: clicks, rubs, systolic murmur - GI/Abdominal GI/Abdominal exam: Present: normal bowel sounds, soft, tenderness (Mostly on the right upper quadrant and slightly diffusely). Absent: distended, firm, rebound - Extremities Exam Extremities exam: Present: normal inspection. Absent: calf tenderness, tenderness Oncology: Obj Data - Labs CBC & Chem 7: 11/01/16 05:28 10/30/16 05:39 Labs: Laboratory Results - last 24 hr 10/29/16 10/31/16 11/01/16 03:16 14:05 05:28 WBC 6.4 RBC 3.69 L Hgb 11.6 Hct 34.3 L MCV 93.0 MCH 31.4 MCHC 33.8 RDW 17.2 H Plt Count 179 MPV 11.7 Immature Gran % 1.3 Seg Neutrophils % 68.3 Lymphocytes % 20.3 Monocytes % 9.1 Eosinophils % 0.2 Basophils % 0.8 Neutrophils # 4.4 Lymphocytes # 1.3 Monocytes # 0.6 Eosinophils # 0.0 Basophils # 0.1 Total Bilirubin Direct Bilirubin Indirect Bilirubin AST ALT Alkaline Phosphatase Serum Total Protein Albumin Globulin Albumin/Globulin Ratio Lipase < 4 L CA 27.29 (off-site) 14.2 Chromogranin A 119 H 11/01/16 05:28 WBC RBC Hgb Hct MCV MCH MCHC RDW Plt Count MPV Immature Gran % Seg Neutrophils % Lymphocytes % Monocytes % Eosinophils % Basophils % Neutrophils # Lymphocytes # Monocytes # Eosinophils # Basophils # Total Bilirubin 8.5 H Direct Bilirubin 6.8 H Indirect Bilirubin 1.7 H AST 87 H ALT 131 H Alkaline Phosphatase 673 H Serum Total Protein 6.1 Albumin 2.3 L Globulin 3.8 H Albumin/Globulin Ratio 0.6 L Lipase CA 27.29 (off-site) Chromogranin A - ABG Interpretation ABG results: PT/INR, D-dimer PT 10.9 Seconds (9.4-12.1) 10/28/16 08:37 Consult Discharge Plan - Plan Referrals: Marybel Head MD [Primary Care Provider] - <Devante Diaz - Last Filed: 11/01/16 17:26> Date of Encounter: 11/01/16 (1) Liver masses Current Visit: Yes Status: Acute Assessment and plan: I have seen examined patient myself, reviewed above history, physical exam findings and agree. I have discussed plan of care with Kash Rick in detail and I am in agreement with his Impression and plan which reflects my assessment and plan of care. Awaiting final path. CA 19-9 elevated much. s/p PTCA today, asking for medication for pain relief. Follow bilirubin trend/LFTs Patient states understanding of above plan of care. - Constitutional Vitals: Vital Signs Temp Pulse Resp BP Pulse Ox 11/01/16 17:20 97.5 F L 95 16 146/82 93 11/01/16 16:12 78 20 122/58 92 11/01/16 16:00 75 18 164/98 94 11/01/16 15:50 81 20 149/83 94 11/01/16 15:48 74 28 143/86 95 11/01/16 12:26 98.3 F 66 20 133/81 90 11/01/16 07:59 98.4 F 66 20 150/80 93 11/01/16 04:19 99.1 F 68 22 159/78 94 10/31/16 23:59 98.9 F 69 26 150/72 94 10/31/16 19:05 99.7 F H 70 24 145/74 92 Intake and Output 11/01/16 11/01/16 11/01/16 07:59 15:59 23:59 Intake Total 1250 / 1250 560 / 560 Output Total 800 / 800 1150 / 1150 0 / 0 Balance 450 / 450 -590 / -590 0 / 0 Intake: IV Fluids 1000 / 1000 D5% And 0.45% Nacl 1000 1000 / 1000 Ml Bag 1,000 ML @ 75 mls/ hr IVC .[id number] [facility] Rx#: [id number] Oral 250 / 250 560 / 560 Output: Urine 800 / 800 1150 / 1150 Wound Drainage 0 / 0 Biliary Drain 0 / 0 Other: Meal Breakfast Percent of Meal Consumed 25% Stool Size Large Stool Consistency soft Stool Characteristics Normal for Patient Stool Color Brown # Voids 2 Weight 80.966 kg Patient Weight 11/01/16 23:59 Weight 80.966 kg Oncology: Obj Data - Labs CBC & Chem 7: 11/01/16 05:28 10/30/16 05:39 Labs: Laboratory Results - last 24 hr 10/29/16 11/01/16 11/01/16 03:16 05:28 05:28 WBC 6.4 RBC 3.69 L Hgb 11.6 Hct 34.3 L MCV 93.0 MCH 31.4 MCHC 33.8 RDW 17.2 H Plt Count 179 MPV 11.7 Immature Gran % 1.3 Seg Neutrophils % 68.3 Lymphocytes % 20.3 Monocytes % 9.1 Eosinophils % 0.2 Basophils % 0.8 Neutrophils # 4.4 Lymphocytes # 1.3 Monocytes # 0.6 Eosinophils # 0.0 Basophils # 0.1 Total Bilirubin 8.5 H Direct Bilirubin 6.8 H Indirect Bilirubin 1.7 H AST 87 H ALT 131 H Alkaline Phosphatase 673 H Serum Total Protein 6.1 Albumin 2.3 L Globulin 3.8 H Albumin/Globulin Ratio 0.6 L CA 27.29 (off-site) 14.2 Chromogranin A 119 H - Impressions Impressions Guidance Needle Placement Ultrasound 11/01/16 00:00 IMPRESSION: Successful PTC with internal-external biliary drain placement from a left hepatic approach using a 10 English catheter. D/ / 11/01/2016 17:10:04 Vincent Strauss MD / bob Interpreting Provider: Vincent Strauss MD Percutaneous Drainage 11/01/16 00:00 IMPRESSION: Successful PTC with internal-external biliary drain placement from a left hepatic approach using a 10 English catheter. D/ / 11/01/2016 17:10:04 Vincent Strauss MD / bob Interpreting Provider: Vincent Strauss MD Percutaneous Drainage 11/01/16 00:00 IMPRESSION: Successful PTC with internal-external biliary drain placement from a left hepatic approach using a 10 English catheter. D/ / 11/01/2016 17:10:04 Vincent Strauss MD / bob Interpreting Provider: Vincent Strauss MD - ABG Interpretation ABG results: PT/INR, D-dimer PT 10.9 Seconds (9.4-12.1) 10/28/16 08:37
[2016-11-01] MEDS: Ibuprofen 400 MG TABLET PO PRN ×2 (11:29→18:38)
--- NOTE | 2016-11-01 11:43 | Internal Med Progress Note ---
Date of Encounter: 11/01/16 Time of Encounter: 11:43 - Assessment and plan (1) Liver masses Current Visit: Yes Status: Acute Assessment and plan: Elevated CEA 54.3, CA19-[address] abdomen/pelvis shows incidental finding of a 5 x 4*5 cm mass in the right liver lobe, with another small mass superior to this, with compression of hepatic ducts and intrahepatic biliary dilatation. Radiology report suggests metastatic disease but no primary was identified on CT abdomen. Noted to have elevated liver enzymes and total bilirubin. INR WNL Liver biopsy report is pending s/p ERCP for obstructive jaundice, LFTS unchanged For PTC today For colonoscopy prior to discharge GI, Oncology following, appreciate recommendations Continue pain control Follow Pathology report (2) Jaundice Current Visit: Yes Status: Acute Assessment and plan: Obstructive secondary to Liver mass ERCP and stenting done 10/29 well tolerated PTC today (3) Hypokalemia Current Visit: Yes Status: Resolved Assessment and plan: Replaced, continue to monitor (4) COPD (chronic obstructive pulmonary disease) Current Visit: Yes Status: Chronic Assessment and plan: Not wheezing at this time Duonebs prn Qualifiers: COPD type: unspecified COPD Qualified Code(s): J44.9 - Chronic obstructive pulmonary disease, unspecified (5) Tobacco abuse Current Visit: Yes Status: Chronic Assessment and plan: Cessation counselling (6) Ulcerative colitis Current Visit: Yes Status: Chronic Assessment and plan: Continue home meds Qualifiers: Ulcerative colitis location: unspecified ulcerative colitis location Digestive disease complication type: without complication Qualified Code(s): K51.90 - Ulcerative colitis, unspecified, without complications (7) Bipolar disease, chronic Current Visit: Yes Status: Chronic Assessment and plan: Continue home meds (8) Anxiety Current Visit: Yes Status: Chronic - Subjective Interval history: Seen and evaluated at bedside patient with lupus , COPD, tobacco abuse, ulcerative colitis She is being worked up for liver mass and obstructive jaundice s/p IR guided liver biopsy 10/29 CA-19-9 3927. AFP WNL. CEA 54.3 s/p ERCP 10/29, difficult procedure, per GI, patient needs LFT monitoring over the weekend and may need PTC on Tuesday by IR LFT today with no significant improvement IR has been contacted today for PTC Dr. Mckeon also contacted, patient may need colonoscopy prior to discharge Pathology report is pending for liver biopsy Otherwise she is clinically stable,still requiring IV morphine for pain control - Constitutional Vitals: Temp Pulse Resp BP Pulse Ox 98.4 F 66 20 150/80 93 11/01/16 07:59 11/01/16 07:59 11/01/16 07:59 11/01/16 07:59 11/01/16 07:59 General appearance: Present: A&O X 3, pleasant, obese, answers questions appropriately - Head Head exam: Present: atraumatic, normocephalic - Eye Eye exam: Present: PERRL, scleral icterus, conjuntiva pink Pupils: Present: PERRL - Neck Neck exam general surgery: Present: supple, trachea midline. Absent: lymphadenopathy - Respiratory Respiratory exam: Present: CTAB. Absent: accessory muscle use, rales, rhonchi, wheezes - Cardiovascular Cardiovascular exam: Present: RRR, +S1, +S2. Absent: diastolic murmur, gallop, rubs, systolic murmur - GI/Abdominal GI/Abdominal exam: Present: normal bowel sounds, soft, tenderness, no peritoneal signs. Absent: distended - Extremities Exam Extremities exam: Present: warm, radial pulses palpable and symetrical. Absent : calf tenderness, cyanotic, pedal edema - Neurological Exam Neurological exam: Present: alert, CN II-XII intact, oriented X3, no focal deficits. Absent: pronater drift, facial droop, speech deficit - Skin Skin exam: Present: dry Internal Medicine: Result - Labs CBC & Chem 7: 11/01/16 05:28 10/30/16 05:39 Labs: Short CBC 11/01/16 Range/Units 05:28 WBC 6.4 (4.3-11.1) K/mcL Hgb 11.6 (11.5-15.4) g/dL Hct 34.3 L (35.3-44.9) % Plt Count 179 (140-400) K/mcL Neutrophils # 4.4 (1.6-8.9) K/mcL Liver Function 11/01/16 Range/Units 05:28 Total Bilirubin 8.5 H (0.2-1.2) mg/dL Direct Bilirubin 6.8 H (0.0-0.5) mg/dL AST 87 H (5-34) Units/L ALT 131 H (0-55) Units/L Alkaline Phosphatase 673 H (38-126) Units/L Albumin 2.3 L (3.5-5.0) g/dL - ABG Interpretation ABG results: PT/INR, D-dimer PT 10.9 Seconds (9.4-12.1) 10/28/16 08:37 Consult Discharge Plan - Plan Referrals: Marybel Head MD [Primary Care Provider] -
[2016-11-01] MEDS ORDERED: traZODone 50 MG TABLET PO PRN (11:44)
[2016-11-01] MEDS ORDERED: 0.9 % Sodium Chloride 500 ML ONE ×2 (13:55→15:53)
[2016-11-01] MEDS ORDERED: 0.9 % Sodium Chloride 1,000 ML ONE (15:21)
[2016-11-01] MEDS ORDERED: D5 IVPB ONE (15:25)
[2016-11-01] MEDS ORDERED: PIPERACILLIN IVPB ONE (15:25)
[2016-11-01] MEDS ORDERED: TAZOBACTAM IVPB ONE (15:25)
[2016-11-01] MEDS ORDERED: WATER IVPB ONE (15:25)
[2016-11-01] MEDS ORDERED: *HR* Midazolam HCl 2 MG/2 ML VIAL IVP PRN (15:27)
[2016-11-01] MEDS: *HR* FentaNYL (PF) 100 MCG/2 ML VIAL IVP PRN ×4 (15:38→16:03)
[2016-11-01] MEDS ORDERED: Piperacillin/Tazobactam 3.375 GM in D5% in Water (Mini-Bag+) 100 ML IVPB ONE (15:59)
[2016-11-01] MEDS: Ondansetron 4 MG/2 ML VIAL IVP PRN (16:06)
--- NOTE | 2016-11-01 16:24 | IR Procedure Note ---
Date of procedure: 11/01/16 Consent Obtained: Verbal consent Timeout: Correct patient and procedure verified, Correct site verified, Time out performed, Skin prep completed Local anesthetic: Lidocaine 1% Indications: Obstructive liver mass Procedure Performed: Left hepatic int/ext biliary drain placement Site/Technique: Left hepatic access, 10fr drain used Results/Findings: Was able to cross obstruction, so placed int/ext stent. Estimated blood loss (cc): 1 Complications: None; Tolerated procedure well Post Procedure Treatment Plan: Monitoring in pts room
[2016-11-02] MEDS: Ibuprofen 400 MG TABLET PO PRN ×2 (03:29→15:40)
[2016-11-02] MEDS: D5% in 0.45% NACL 1,000 ML IVC SCH ×3 (03:30→17:45)
[2016-11-02] MEDS: sulfaSALAzine 500 MG TABLET PO SCH ×4 (06:05→22:56)
[2016-11-02] MEDS: Diltiazem CD (24hr) 180 MG CAPSULE PO SCH (09:17)
[2016-11-02] MEDS: ARIPiprazole 10 MG TABLET PO SCH (09:17)
[2016-11-02] MEDS: lamoTRIgine 100 MG TABLET PO SCH (09:18)
[2016-11-02] MEDS: Nicotine 21 MG PATCH.TD24 TD SCH (09:18)
[2016-11-02] MEDS: clonazePAM 1 MG TABLET PO SCH ×3 (09:18→20:54)
--- NOTE | 2016-11-02 10:24 | Oncology Inp Progress Note ---
<Chan Haddad - Last Filed: 11/02/16 10:29> Date of Encounter: 11/02/16 Time of Encounter: 10:21 (1) Liver masses Current Visit: Yes Status: Acute Assessment and plan: MRI of abdomen showed 4.4 cm T2 hypoenhancing hepatic mass with central scar centered within segment viii which remains indeterminate, which does not have the typical enhancing pattern for hepatocellular carcinoma. GI service was consulted and the patient had ERCP last week, IR has been consulted and biopsy of the liver was done, tumor marker AFP and CA 27.29 were normal, but CEA, CA 19 -9 and chromogranin A were elevated, final pathology report is pending at this time, s/p biliary drainage tube placement by IR yesterday due to worsening bilirubin level, clinically she is doing better today, hepatic panel from today is still pending, possible colonoscopy prior to discharge per GI service, will make further recommendations after reviewing the final pathology report. Oncology: Subj Interval history: Pt seen and examined, feels better than yesterday, no nausea/emesis, slight RUQ abd pain, no bowel movement yet. - Constitutional Vitals: Vital Signs Temp Pulse Resp BP Pulse Ox 11/02/16 07:11 98.4 F 62 18 128/76 94 11/02/16 04:39 98.5 F 68 17 125/79 93 11/01/16 23:39 98.0 F 75 18 146/67 93 11/01/16 19:46 97.5 F L 68 15 122/85 98 11/01/16 17:20 97.5 F L 95 16 146/82 93 11/01/16 16:12 78 20 122/58 92 11/01/16 16:00 75 18 164/98 94 11/01/16 15:50 81 20 149/83 94 11/01/16 15:48 74 28 143/86 95 11/01/16 12:26 98.3 F 66 20 133/81 90 Intake and Output 11/01/16 11/02/16 11/02/16 23:59 07:59 15:59 Intake Total 685 / 685 995 / 995 480 / 480 Output Total 1950 / 1950 550 / 550 350 / 350 Balance -1265 / -1265 445 / 445 130 / 130 Intake: IV Fluids 245 / 245 755 / 755 D5% And 0.45% Nacl 1000 245 / 245 755 / 755 Ml Bag 1,000 ML @ 75 mls/ hr IVC .[id number] [facility] Rx#: [id number] Oral 440 / 440 240 / 240 480 / 480 Output: Urine 1950 / 1950 550 / 550 200 / 200 Wound Drainage 0 / 0 0 / 0 150 / 150 Biliary Drain 0 / 0 0 / 0 150 / 150 Other: Meal Dinner Weight 79.832 kg Patient Weight 11/02/16 23:59 Weight 79.832 kg General appearance: cooperative, no acute distress, obese - Respiratory Respiratory exam: Present: CTAB. Absent: accessory muscle use, rales, respiratory distress, wheezes - Cardiovascular Cardiovascular exam: Present: RRR, +S1, +S2. Absent: clicks, rubs, systolic murmur - GI/Abdominal GI/Abdominal exam: Present: soft, tenderness (mildly to palpate in RUQ area). Absent: distended, firm, guarding, rebound, rigid Additional comments: biliary drainage tube in place - Extremities Exam Extremities exam: Present: normal inspection. Absent: calf tenderness, tenderness Oncology: Obj Data - Labs CBC & Chem 7: 11/01/16 05:28 10/30/16 05:39 - Impressions Impressions Guidance Needle Placement Ultrasound 11/01/16 00:00 IMPRESSION: Successful PTC with internal-external biliary drain placement from a left hepatic approach using a 10 Lithuanian catheter. D/ / 11/01/2016 17:10:04 Vincent Strauss MD / bob Interpreting Provider: Vincent Strauss MD Percutaneous Drainage 11/01/16 00:00 IMPRESSION: Successful PTC with internal-external biliary drain placement from a left hepatic approach using a 10 Lithuanian catheter. D/ / 11/01/2016 17:10:04 Vincent Strauss MD / bob Interpreting Provider: Vincent Strauss MD Percutaneous Drainage 11/01/16 00:00 IMPRESSION: Successful PTC with internal-external biliary drain placement from a left hepatic approach using a 10 Lithuanian catheter. D/ / 11/01/2016 17:10:04 Vincent Strauss MD / bob Interpreting Provider: Vincent Strauss MD - ABG Interpretation ABG results: PT/INR, D-dimer PT 10.9 Seconds (9.4-12.1) 10/28/16 08:37 Consult Discharge Plan - Plan Referrals: May Miller, VENEER GRADER [Advanced Practice Nurse] - 11/09/16 1:00 pm <Devante Diaz - Last Filed: 11/03/16 08:24> Date of Encounter: 11/03/16 (1) Liver masses Current Visit: Yes Status: Acute Assessment and plan: Differential from final path reviewed with patient-adenocarcinoma. Mammogram benign and Pap endometrial bx neg for malignancy. Colonoscopy possiby prior to discharge. Patient wanted plan discussed with her daughter as well. Ct chest to complete staging w/u. I have seen examined patient myself and discussed plan with Dr Chan Haddad. I have reviewed the history, physical exam findings, assessment and plan performed by Dr Chan Haddad and agree with the documentation noted above. - Constitutional Vitals: Vital Signs Temp Pulse Resp BP Pulse Ox 11/03/16 07:48 98.0 F 59 12 149/84 94 11/03/16 04:07 97.9 F 64 18 126/75 93 11/02/16 23:40 98.9 F 68 20 161/81 95 11/02/16 20:03 98.6 F 68 18 146/76 95 11/02/16 16:24 97.9 F 68 18 149/85 95 11/02/16 11:27 97.7 F 62 18 136/80 94 Intake and Output 11/02/16 11/03/16 11/03/16 23:59 07:59 15:59 Intake Total 1000 / 1000 Output Total 1800 / 1800 1050 / 1050 Balance -800 / -800 -1050 / -1050 Intake: IV Fluids 1000 / 1000 D5% And 0.45% Nacl 1000 1000 / 1000 Ml Bag 1,000 ML @ 75 mls/ hr IVC .[id number] [facility] Rx#: [id number] Output: Urine 1600 / 1600 850 / 850 Wound Drainage 200 / 200 200 / 200 Biliary Drain 200 / 200 200 / 200 Other: Weight 78.834 kg Patient Weight 11/03/16 23:59 Weight 78.834 kg Oncology: Obj Data - Labs CBC & Chem 7: 11/03/16 04:28 11/03/16 04:28 Labs: Laboratory Results - last 24 hr 11/02/16 11/03/16 11/03/16 10:21 04:28 04:28 WBC 6.6 RBC 3.62 L Hgb 11.7 Hct 34.0 L MCV 93.9 MCH 32.3 MCHC 34.4 RDW 17.3 H Plt Count 195 MPV 12.2 Immature Gran % 1.4 Seg Neutrophils % 66.6 Lymphocytes % 20.9 Monocytes % 9.8 Eosinophils % 0.2 Basophils % 1.1 Neutrophils # 4.4 Lymphocytes # 1.4 Monocytes # 0.6 Eosinophils # 0.0 Basophils # 0.1 Sodium Potassium Chloride Carbon Dioxide BUN Creatinine Est GFR ( Amer) Est GFR (Non-Af Amer) BUN/Creatinine Ratio Glucose Calculated Osmolality Calcium Total Bilirubin 8.9 H 8.1 H Direct Bilirubin 7.3 H 6.6 H Indirect Bilirubin 1.6 H 1.5 H AST 86 H 85 H ALT 125 H 123 H Alkaline Phosphatase 637 H 669 H Serum Total Protein 6.1 6.3 Albumin 2.2 L 2.3 L Globulin 3.9 H 4.0 H Albumin/Globulin Ratio 0.6 L 0.6 L 11/03/16 04:28 WBC RBC Hgb Hct MCV MCH MCHC RDW Plt Count MPV Immature Gran % Seg Neutrophils % Lymphocytes % Monocytes % Eosinophils % Basophils % Neutrophils # Lymphocytes # Monocytes # Eosinophils # Basophils # Sodium 142 Potassium 3.0 L Chloride 101 Carbon Dioxide 32 H BUN 8 Creatinine 0.59 Est GFR ( Amer) > 60 Est GFR (Non-Af Amer) > 60 BUN/Creatinine Ratio 14 Glucose 103 H Calculated Osmolality 293 Calcium 9.2 Total Bilirubin Direct Bilirubin Indirect Bilirubin AST ALT Alkaline Phosphatase Serum Total Protein Albumin Globulin Albumin/Globulin Ratio - ABG Interpretation ABG results: PT/INR, D-dimer PT 10.9 Seconds (9.4-12.1) 10/28/16 08:37
[2016-11-02 11:04] LABS: Albumin 2.2 g/dL (3.5-5.0); Albumin/Globulin Ratio 0.6 (1.1-2.2); Bilirubin,Direct 7.3 mg/dL (0.0-0.5); Bilirubin,Indirect 1.6 mg/dL (0.0-1.2); Globulin 3.9 g/dL (2.4-3.5); Total Protein 6.1 g/dL (6.0-8.3)
[2016-11-02 11:05] LABS: Bilirubin,Total 8.9 mg/dL (0.2-1.2)
--- NOTE | 2016-11-02 18:50 | Internal Med Progress Note ---
Date of Encounter: 11/02/16 Time of Encounter: 10:00 - Assessment and plan (1) Liver masses Current Visit: Yes Status: Acute Assessment and plan: Elevated CEA 54.3, CA19-[address] abdomen/pelvis shows incidental finding of a 5 x 4*5 cm mass in the right liver lobe, with another small mass superior to this, with compression of hepatic ducts and intrahepatic biliary dilatation. Radiology report suggests metastatic disease but no primary was identified on CT abdomen. Noted to have elevated liver enzymes and total bilirubin. INR WNL Liver biopsy shows adenocarcinoma s/p ERCP and PTC drain for obstructive jaundice, LFTS unchanged For colonoscopy prior to discharge GI, Oncology following, appreciate recommendations Continue pain control (2) Jaundice Current Visit: Yes Status: Acute Assessment and plan: Obstructive secondary to Liver mass ERCP and stenting done 10/29 well tolerated PTC done. Continue closely monitor bilirubin level and liver function. (3) Ulcerative colitis Current Visit: Yes Status: Chronic Assessment and plan: Continue home meds Qualifiers: Ulcerative colitis location: unspecified ulcerative colitis location Digestive disease complication type: without complication Qualified Code(s): K51.90 - Ulcerative colitis, unspecified, without complications (4) Bipolar disease, chronic Current Visit: Yes Status: Chronic Assessment and plan: Continue home meds (5) DVT prophylaxis Current Visit: Yes Status: Acute Assessment and plan: Heparin subcutaneously - Time Spent With Patient 25 - 35 minutes - Subjective Interval history: Patient is a 66-year-old female admitted for obstructive jaundice. Her past medical history is significant for SLE, ulcerative colitis. Patient was found liver mass during hospitalization. Biopsy has been done. I saw and examined patient today. She still complains of weakness, upper abdominal pain, had PTC drainage yesterday, bilirubin level is still high today. Discussed with GI consul Dr. Mckeon, plan for colonoscopy to figure out if there is colon cancer. - Constitutional Vitals: Temp Pulse Resp BP Pulse Ox 97.9 F 68 18 149/85 95 11/02/16 16:24 11/02/16 16:24 11/02/16 16:24 11/02/16 16:24 11/02/16 16:24 General appearance: Present: A&O X 3, pleasant, obese, answers questions appropriately - Head Head exam: Present: atraumatic, normocephalic - Eye Eye exam: Present: PERRL, conjuntiva pink, sclera anicteric Pupils: Present: PERRL - Neck Neck exam general surgery: Present: supple, trachea midline. Absent: lymphadenopathy - Respiratory Respiratory exam: Present: CTAB. Absent: accessory muscle use, rales, rhonchi, wheezes - Cardiovascular Cardiovascular exam: Present: RRR, +S1, +S2. Absent: diastolic murmur, gallop, rubs, systolic murmur - GI/Abdominal GI/Abdominal exam: Present: normal bowel sounds, soft, no peritoneal signs. Absent: distended, tenderness Additional comments: PTC drainage in place - Extremities Exam Extremities exam: Present: warm, radial pulses palpable and symetrical. Absent : calf tenderness, cyanotic, pedal edema - Neurological Exam Neurological exam: Present: CN II-XII intact, oriented X3, no focal deficits. Absent: pronater drift, facial droop, speech deficit - Skin Skin exam: Present: dry, intact Internal Medicine: Result - Labs CBC & Chem 7: 11/01/16 05:28 10/30/16 05:39 Labs: Liver Function 11/02/16 Range/Units 10:21 Total Bilirubin 8.9 H (0.2-1.2) mg/dL Direct Bilirubin 7.3 H (0.0-0.5) mg/dL AST 86 H (5-34) Units/L ALT 125 H (0-55) Units/L Alkaline Phosphatase 637 H (38-126) Units/L Albumin 2.2 L (3.5-5.0) g/dL - ABG Interpretation ABG results: PT/INR, D-dimer PT 10.9 Seconds (9.4-12.1) 10/28/16 08:37 - VTE Documentation of Mechanical Device: Intermittent pneumatic compression device Consult Discharge Plan - Plan Referrals: May Miller PROGRAM ARCHITECT [Advanced Practice Nurse] - 11/09/16 1:00 pm
[2016-11-02] MEDS ORDERED: traMADol 50 MG TABLET PO ONE (21:20)
[2016-11-02] MEDS: Ondansetron 4 MG/2 ML VIAL IVP PRN (22:57)
[2016-11-03 05:23] LABS: Basophils # 0.1 K/mcL (0.0-0.2); Basophils % 1.1 %; Eosinophils % 0.2 %; Hemoglobin 11.7 g/dL (11.5-15.4); Immature Granulocytes % 1.4 % (0-4); Lymphocytes # 1.4 K/mcL (0.6-4.6); Lymphocytes % 20.9 %; Mean Corpuscular HGB Conc 34.4 g/dL (31.6-35.5); Mean Corpuscular Hemoglobin 32.3 pg (28.0-33.3); Mean Corpuscular Volume 93.9 fL (83.0-100.0); Mean Platelet Volume 12.2 fL (9.4-12.4); Monocytes # 0.6 K/mcL (0.0-1.3); Monocytes % 9.8 %; Neutrophils # 4.4 K/mcL (1.6-8.9); Platelet Count 195 K/mcL (140-400); Red Blood Count 3.62 M/mcL (3.82-4.97); Red Cell Distribution Width 17.3 % (11.5-14.5); Segmented Neutrophils % 66.6 %
[2016-11-03 05:44] LABS: Albumin 2.3 g/dL (3.5-5.0); Albumin/Globulin Ratio 0.6 (1.1-2.2); Bilirubin,Direct 6.6 mg/dL (0.0-0.5); Bilirubin,Indirect 1.5 mg/dL (0.0-1.2); Total Protein 6.3 g/dL (6.0-8.3)
[2016-11-03 06:00] LABS: Bilirubin,Total 8.1 mg/dL (0.2-1.2)
[2016-11-03] MEDS: sulfaSALAzine 500 MG TABLET PO SCH ×3 (06:02→18:53)
[2016-11-03 06:04] LABS: BUN/Creatinine Ratio 14 (6-26); Blood Urea Nitrogen 8 mg/dL (7-20); Calcium 9.2 mg/dL (8.6-10.8); Carbon Dioxide 32 mEq/L (19-29); Chloride 101 mEq/L (98-109); Glucose 103 mg/dL (70-99); Osmolality,Calculated 293 (280-300); Sodium 142 mEq/L (136-145); eGFR For African Americans > 60 (> 60); eGFR For Non-African Americans > 60 (> 60)
[2016-11-03] MEDS: Diltiazem CD (24hr) 180 MG CAPSULE PO SCH (08:59)
[2016-11-03] MEDS: lamoTRIgine 100 MG TABLET PO SCH (08:59)
[2016-11-03] MEDS: Nicotine 21 MG PATCH.TD24 TD SCH (09:00)
[2016-11-03] MEDS: clonazePAM 1 MG TABLET PO SCH ×3 (09:00→21:41)
[2016-11-03] MEDS: ARIPiprazole 10 MG TABLET PO SCH (09:00)
[2016-11-03] MEDS ORDERED: SODIUM CHLORIDE/NAHCO3/KCL/PEG 4,000 ML SOLN.RECON PO ONE (10:00)
--- NOTE | 2016-11-03 11:50 | Event Note ---
Date of Encounter: 11/03/16 Time of Encounter: 09:00 I spoke with patient's daughter Lesly this morning and provide her with oncologic status update. She understands that available information such as the patient has malignancy in her liver. Source of her malignancy is unclear at this time and she is undergoing additional evaluation including colonoscopy to look for primary source. She is also scheduled for chest CT prior to discharge from further evaluation. We will review her case in our tumor conference later this week for further recommendation and patient may need additional imaging including PET/CT scan may be needed sometime next week depending on tumor Board recommendation. She only has an option follow-up appointment with me 11/12/16 for further recommendation based on results of pending studies. In the meantime, plan is to continue supportive management as we are doing until we have more conclusive results for treatment recommendation. She verbalized understanding and is in agreement with the impression and plan of care outlined above.
[2016-11-03] MEDS: D5% in 0.45% NACL 1,000 ML IVC SCH (12:20)
--- NOTE | 2016-11-03 16:53 | Internal Med Progress Note ---
Date of Encounter: 11/03/16 Time of Encounter: 10:00 - Assessment and plan (1) Liver masses Current Visit: Yes Status: Acute Assessment and plan: Elevated CEA 54.3, CA19-[address] abdomen/pelvis shows incidental finding of a 5 x 4*5 cm mass in the right liver lobe, with another small mass superior to this, with compression of hepatic ducts and intrahepatic biliary dilatation. Radiology report suggests metastatic disease but no primary was identified on CT abdomen. Noted to have elevated liver enzymes and total bilirubin. INR WNL Liver biopsy shows adenocarcinoma s/p ERCP and PTC drain for obstructive jaundice, bilirubin level improved GI, Oncology following, appreciate recommendations Continue pain control Plan for colonoscopy tomorrow (2) Jaundice Current Visit: Yes Status: Acute Assessment and plan: Obstructive secondary to Liver mass ERCP and stenting done 10/29 well tolerated PTC done. Continue closely monitor bilirubin level and liver function. (3) Ulcerative colitis Current Visit: Yes Status: Chronic Assessment and plan: Continue home meds Qualifiers: Ulcerative colitis location: unspecified ulcerative colitis location Digestive disease complication type: without complication Qualified Code(s): K51.90 - Ulcerative colitis, unspecified, without complications (4) Bipolar disease, chronic Current Visit: Yes Status: Chronic Assessment and plan: Continue home meds (5) DVT prophylaxis Current Visit: Yes Status: Acute Assessment and plan: Heparin subcutaneously - Time Spent With Patient 25 - 35 minutes - Subjective Interval history: Patient is a 66-year-old female admitted for obstructive jaundice. Her past medical history is significant for SLE, ulcerative colitis. Patient was found liver mass during hospitalization. Biopsy has been done. I saw and examined patient today. She still complains of weakness, upper abdominal pain. PTC drainage in place, bilirubin level slightly trend down. GI will schedule colonoscopy tomorrow. Oncology is on case and will decide further management plan. - Constitutional Vitals: Temp Pulse Resp BP Pulse Ox 97.5 F L 67 18 130/80 96 11/03/16 15:46 11/03/16 15:46 11/03/16 15:46 11/03/16 15:46 11/03/16 15:46 General appearance: Present: A&O X 3, pleasant, obese, answers questions appropriately - Head Head exam: Present: atraumatic, normocephalic - Eye Eye exam: Present: PERRL, conjuntiva pink, sclera anicteric Pupils: Present: PERRL - Neck Neck exam general surgery: Present: supple, trachea midline. Absent: lymphadenopathy - Respiratory Respiratory exam: Present: CTAB. Absent: accessory muscle use, rales, rhonchi, wheezes - Cardiovascular Cardiovascular exam: Present: RRR, +S1, +S2. Absent: diastolic murmur, gallop, rubs, systolic murmur - GI/Abdominal GI/Abdominal exam: Present: normal bowel sounds, soft, no peritoneal signs. Absent: distended, tenderness Additional comments: PTC drainage tube in place - Extremities Exam Extremities exam: Present: warm, radial pulses palpable and symetrical. Absent : calf tenderness, cyanotic, pedal edema - Neurological Exam Neurological exam: Present: CN II-XII intact, oriented X3, no focal deficits. Absent: pronater drift, facial droop, speech deficit - Skin Skin exam: Present: dry, intact Internal Medicine: Result - Labs CBC & Chem 7: 11/03/16 04:28 11/03/16 04:28 Labs: Short CBC 11/03/16 Range/Units 04:28 WBC 6.6 (4.3-11.1) K/mcL Hgb 11.7 (11.5-15.4) g/dL Hct 34.0 L (35.3-44.9) % Plt Count 195 (140-400) K/mcL Neutrophils # 4.4 (1.6-8.9) K/mcL BMP 11/03/16 04:28 Sodium 142 Potassium 3.0 L Chloride 101 Carbon Dioxide 32 H BUN 8 Creatinine 0.59 Glucose 103 H Calcium 9.2 Liver Function 11/03/16 Range/Units 04:28 Total Bilirubin 8.1 H (0.2-1.2) mg/dL Direct Bilirubin 6.6 H (0.0-0.5) mg/dL AST 85 H (5-34) Units/L ALT 123 H (0-55) Units/L Alkaline Phosphatase 669 H (38-126) Units/L Albumin 2.3 L (3.5-5.0) g/dL - ABG Interpretation ABG results: PT/INR, D-dimer PT 10.9 Seconds (9.4-12.1) 10/28/16 08:37 - VTE Documentation of Mechanical Device: Intermittent pneumatic compression device Consult Discharge Plan - Plan Referrals: May Miller, KAMALA [Advanced Practice Nurse] - 11/09/16 1:00 pm
[2016-11-03] MEDS: *HR* Morphine 2 MG/ML SYRINGE IVP PRN (21:40)
[2016-11-04] MEDS ORDERED: SODIUM CHLORIDE/NAHCO3/KCL/PEG 4,000 ML SOLN.RECON PO ONE (00:34)
[2016-11-04] MEDS: sulfaSALAzine 500 MG TABLET PO SCH ×5 (00:59→23:46)
[2016-11-04] MEDS: D5% in 0.45% NACL 1,000 ML IVC SCH ×3 (01:03→18:31)
[2016-11-04] MEDS: Ibuprofen 400 MG TABLET PO PRN (01:26)
[2016-11-04 05:41] LABS: Basophils # 0.1 K/mcL (0.0-0.2); Basophils % 1.2 %; Hematocrit 34.6 % (35.3-44.9); Hemoglobin 11.4 g/dL (11.5-15.4); Immature Granulocytes % 1.3 % (0-4); Lymphocytes # 1.5 K/mcL (0.6-4.6); Lymphocytes % 19.2 %; Mean Corpuscular HGB Conc 32.9 g/dL (31.6-35.5); Mean Corpuscular Hemoglobin 31.1 pg (28.0-33.3); Mean Corpuscular Volume 94.5 fL (83.0-100.0); Mean Platelet Volume 11.4 fL (9.4-12.4); Monocytes # 0.7 K/mcL (0.0-1.3); Monocytes % 8.6 %; Neutrophils # 5.3 K/mcL (1.6-8.9); Platelet Count 208 K/mcL (140-400); Red Blood Count 3.66 M/mcL (3.82-4.97); Red Cell Distribution Width 17.2 % (11.5-14.5); Segmented Neutrophils % 69.7 %
[2016-11-04 05:44] LABS: INR 1.1; Prothrombin Time 12.1 Seconds (9.4-12.1)
[2016-11-04 05:58] LABS: Alanine Aminotransferase 111 Units/L (0-55); Albumin 2.3 g/dL (3.5-5.0); Albumin/Globulin Ratio 0.5 (1.1-2.2); Alkaline Phosphatase 624 Units/L (38-126); Aspartate Amino Transferase 73 Units/L (5-34); BUN/Creatinine Ratio 8 (6-26); Bilirubin,Direct 6.3 mg/dL (0.0-0.5); Bilirubin,Indirect 1.5 mg/dL (0.0-1.2); Bilirubin,Total 7.8 mg/dL (0.2-1.2); Calcium 9.2 mg/dL (8.6-10.8); Carbon Dioxide 30 mEq/L (19-29); Chloride 101 mEq/L (98-109); Globulin 4.2 g/dL (2.4-3.5); Glucose 93 mg/dL (70-99); Osmolality,Calculated 285 (280-300); Potassium 3.6 mEq/L (3.5-4.5); Sodium 139 mEq/L (136-145); Total Protein 6.5 g/dL (6.0-8.3); eGFR For African Americans > 60 (> 60); eGFR For Non-African Americans > 60 (> 60)
[2016-11-04 06:00] LABS: Blood Urea Nitrogen 5 mg/dL (7-20)
[2016-11-04] MEDS: Diltiazem CD (24hr) 180 MG CAPSULE PO SCH (09:52)
[2016-11-04] MEDS: ARIPiprazole 10 MG TABLET PO SCH (09:52)
[2016-11-04] MEDS: Nicotine 21 MG PATCH.TD24 TD SCH (09:53)
[2016-11-04] MEDS: lamoTRIgine 100 MG TABLET PO SCH (09:53)
[2016-11-04] MEDS: clonazePAM 1 MG TABLET PO SCH ×3 (09:53→20:28)
[2016-11-04] MEDS ORDERED: *HR* Propofol 500 MG/50 ML BOTTLE IVC ONE (10:02)
--- NOTE | 2016-11-04 13:43 | Anesthesia Evaluation PreOp ---
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: Other (bipolar) Other Medical History: Hepatic (Hepatic mass, ERCP 2 days ago), Other ( ulcerative colitis) Anesthesia History: No Prior Anesthetic Complications, Past Anesthesia (ERCP) Alcohol Use: none Drug use: none Medications and Allergies Albuterol Sulfate [Proair HFA] 2 puff IH Q4HR PRN 02/14/15 [History] Buspirone [Buspar] 15 mg PO BID 02/14/15 [History] ClonazePAM [Klonopin] 1 mg PO TID 02/14/15 [History] Sulfasalazine [Azulfidine] 500 mg PO Q6HR 02/14/15 [History] Diltiazem CD (24hr) [Cardizem CD] 180 mg PO DAILY 08/25/15 [History] Pravastatin Sodium [Pravachol] 40 mg PO QAM 08/25/15 [History] traZODone [TraZODone] 100 mg PO HS 09/20/15 [History] ARIPiprazole [Abilify] 10 mg PO DAILY 10/27/16 [History] Duloxetine HCl [Cymbalta] 120 mg PO DAILY 10/27/16 [History] Calcium Carbonate/Vitamin D3 [Calcium 600 + Vit D Tablet] 1 each PO DAILY [History] Gabapentin [Neurontin] 100 mg PO BID 10/28/16 [History] Vitamin E 100 unit PO DAILY 10/28/16 [History] lamoTRIgine [Lamotrigine] 200 mg PO DAILY 10/28/16 [History] Allergies griseofulvin [From Fulvicin P/G] Allergy (Verified 10/28/16 12:40) Hives acetaminophen [From Percocet] Adverse Reaction (Verified 10/28/16 12:40) Itching Oxycodone [From Percocet] Adverse Reaction (Verified 10/28/16 12:40) Itching - Meds/Allergy Pre-op Review Medications Reviewed: Yes Allergies Reviewed: Yes Beta Blockers on Current Med List: No Anesthesia Results - Labs 11/04/16 05:11 11/04/16 05:11 Anesthesia Exam Selected Entries 05/25/17 13:38 Temperature 97.3 F L Pulse Rate 68 Respiratory Rate 16 Blood Pressure 158/84 Weight: 79kg NPO (# of Hours): 8 Pain Scale: 0 Pain Scale Used: Numeric (1 - 10) - HEENT Pupil (Motor): EOMI Mallampati: III Teeth: Poor dentition Oral Opening: Greater than 3 - WOOD POLISHER LOC: Oriented WOOD POLISHER Motor: Normal RUE, Normal LUE, Normal RLE, Normal LLE, Normal Face WOOD POLISHER Sensory: Normal: RUE, LUE, RLE, LLE, Face - Cardiac Rhythm: Regular Murmur: None - Pulmonary Breath Sounds: bilateral Clear Respiratory Effort: Symmetrical Anesthesia Assess/Plan ASA Score: 3 Modified [place] Scale for Level of Consciousness: Cooperative, oriented, and tranquil Anesthetic Plan: MAC Monitoring Plan: Standard Monitors Recovery Plan: Other (Discussed MAC with patient, agrees to proceed.)
[2016-11-04] MEDS ORDERED: 0.9 % Sodium Chloride 1,000 ML IVC SCH (13:45)
--- NOTE | 2016-11-04 15:45 | Anesthesia Evaluation Post Op ---
Date of Encounter: 11/04/16 Time of Encounter: 15:46 - Vital Signs Vital Signs: 142/75,75,95% on 3L,18 - Lungs Lungs: Clear Ascult./Percussion - Airway Airway: Non-obstructed - Cardiovascular Baseline Rhythm, New Rhythm - Mental Status Mental Status: Alert & Oriented, Answers Appropriately - Pain Pain Scale: 0 Pain Scale used: Numeric (1 - 10) - Nausea Vomiting Nausea Vomiting: Not Present - Hydration Hydration: Ice chips, Has not voided Notes: 11/04/16 15:48 AAOx3,VSS with no complaints - Discharge PostOp Status: Transfer Patient to floor
--- NOTE | 2016-11-04 17:44 | Internal Med Progress Note ---
Date of Encounter: 11/04/16 Time of Encounter: 10:00 - Assessment and plan (1) Liver masses Current Visit: Yes Status: Inactive Assessment and plan: Elevated CEA 54.3, CA19-[address] abdomen/pelvis shows incidental finding of a 5 x 4*5 cm mass in the right liver lobe, with another small mass superior to this, with compression of hepatic ducts and intrahepatic biliary dilatation. Radiology report suggests metastatic disease but no primary was identified on CT abdomen. Noted to have elevated liver enzymes and total bilirubin. INR WNL Liver biopsy shows adenocarcinoma s/p ERCP and PTC drain for obstructive jaundice, bilirubin level improved GI, Oncology following, appreciate recommendations Continue pain control Had colonoscope today. (2) Jaundice Current Visit: Yes Status: Inactive Assessment and plan: Obstructive jaundice secondary to Liver mass ERCP and stenting done 10/29 well tolerated PTC done. Continue closely monitor bilirubin level and liver function. (3) Ulcerative colitis Current Visit: Yes Status: Chronic Assessment and plan: Continue home meds Qualifiers: Ulcerative colitis location: unspecified ulcerative colitis location Digestive disease complication type: without complication Qualified Code(s): K51.90 - Ulcerative colitis, unspecified, without complications (4) Bipolar disease, chronic Current Visit: Yes Status: Chronic Assessment and plan: Continue home meds (5) DVT prophylaxis Current Visit: Yes Status: Acute Assessment and plan: Heparin subcutaneously - Time Spent With Patient 25 - 35 minutes - Subjective Interval history: Patient is a 66-year-old female admitted for obstructive jaundice. Her past medical history is significant for SLE, ulcerative colitis. Patient was found liver mass during hospitalization. Biopsy has been done. I saw and examined patient today. She still complains of weakness, upper abdominal pain. PTC drainage in place, bilirubin level slightly trend down. GI had colonoscopy today. PTOT evaluation to determine the placement. - Constitutional Vitals: Temp Pulse Resp BP Pulse Ox 97.9 F 72 20 147/86 92 11/04/16 16:25 11/04/16 16:25 11/04/16 16:25 11/04/16 16:25 11/04/16 16:25 General appearance: Present: A&O X 3, pleasant, obese, answers questions appropriately - Head Head exam: Present: atraumatic, normocephalic - Eye Eye exam: Present: PERRL, conjuntiva pink, sclera anicteric Pupils: Present: PERRL - Neck Neck exam general surgery: Present: supple, trachea midline. Absent: lymphadenopathy - Respiratory Respiratory exam: Present: CTAB. Absent: accessory muscle use, rales, rhonchi, wheezes - Cardiovascular Cardiovascular exam: Present: RRR, +S1, +S2. Absent: diastolic murmur, gallop, rubs, systolic murmur - GI/Abdominal GI/Abdominal exam: Present: normal bowel sounds, soft, no peritoneal signs. Absent: distended, tenderness - Extremities Exam Extremities exam: Present: warm, radial pulses palpable and symetrical. Absent : calf tenderness, cyanotic, pedal edema - Neurological Exam Neurological exam: Present: CN II-XII intact, oriented X3, no focal deficits. Absent: pronater drift, facial droop, speech deficit - Skin Skin exam: Present: dry, intact Internal Medicine: Result - Labs CBC & Chem 7: 11/04/16 05:11 11/04/16 05:11 Labs: Short CBC 11/04/16 Range/Units 05:11 WBC 7.5 (4.3-11.1) K/mcL Hgb 11.4 L (11.5-15.4) g/dL Hct 34.6 L (35.3-44.9) % Plt Count 208 (140-400) K/mcL Neutrophils # 5.3 (1.6-8.9) K/mcL BMP 11/04/16 05:11 Sodium 139 Potassium 3.6 Chloride 101 Carbon Dioxide 30 H BUN 5 L Creatinine 0.60 Glucose 93 Calcium 9.2 Liver Function 11/04/16 Range/Units 05:11 Total Bilirubin 7.8 H (0.2-1.2) mg/dL Direct Bilirubin 6.3 H (0.0-0.5) mg/dL AST 73 H (5-34) Units/L ALT 111 H (0-55) Units/L Alkaline Phosphatase 624 H (38-126) Units/L Albumin 2.3 L (3.5-5.0) g/dL - ABG Interpretation ABG results: PT/INR, D-dimer PT 12.1 Seconds (9.4-12.1) 11/04/16 05:11 - VTE Documentation of Mechanical Device: Intermittent pneumatic compression device Consult Discharge Plan - Plan Referrals: May Miller COMMUTATOR PRESSER [Advanced Practice Nurse] - 11/09/16 1:00 pm
[2016-11-04] MEDS: *HR* Morphine 2 MG/ML SYRINGE IVP PRN (20:28)
[2016-11-05 05:04] LABS: Hematocrit 35.1 % (35.3-44.9); Hemoglobin 11.8 g/dL (11.5-15.4); Immature Granulocytes % 1.3 % (0-4); Lymphocytes % 16.9 %; Mean Corpuscular HGB Conc 33.6 g/dL (31.6-35.5); Mean Corpuscular Hemoglobin 31.8 pg (28.0-33.3); Mean Corpuscular Volume 94.6 fL (83.0-100.0); Mean Platelet Volume 11.1 fL (9.4-12.4); Platelet Count 221 K/mcL (140-400); Red Blood Count 3.71 M/mcL (3.82-4.97); Red Cell Distribution Width 17.1 % (11.5-14.5); Segmented Neutrophils % 70.4 %
[2016-11-05 05:05] LABS: Basophils # 0.1 K/mcL (0.0-0.2); Eosinophils % 0.2 %; Lymphocytes # 1.4 K/mcL (0.6-4.6); Monocytes # 0.8 K/mcL (0.0-1.3); Monocytes % 10.2 %; Neutrophils # 5.8 K/mcL (1.6-8.9)
[2016-11-05 05:12] LABS: BUN/Creatinine Ratio 9 (6-26); Calcium 9.1 mg/dL (8.6-10.8); Carbon Dioxide 28 mEq/L (19-29); Chloride 100 mEq/L (98-109); Glucose 100 mg/dL (70-99); Osmolality,Calculated 281 (280-300); Potassium 3.1 mEq/L (3.5-4.5); Sodium 137 mEq/L (136-145); eGFR For African Americans > 60 (> 60); eGFR For Non-African Americans > 60 (> 60)
[2016-11-05 05:13] LABS: Blood Urea Nitrogen 5 mg/dL (7-20)
[2016-11-05] MEDS: sulfaSALAzine 500 MG TABLET PO SCH ×3 (06:47→17:14)
[2016-11-05] MEDS: Ibuprofen 400 MG TABLET PO PRN (07:37)
[2016-11-05] MEDS ORDERED: *HR* Morphine 2 MG/ML SYRINGE IVP PRN (09:24)
--- NOTE | 2016-11-05 09:29 | Oncology Inp Progress Note ---
<Chan Haddad - Last Filed: 11/05/16 10:18> Date of Encounter: 11/05/16 Time of Encounter: 09:29 (1) Liver masses Current Visit: Yes Status: Inactive Assessment and plan: MRI of abdomen showed 4.4 cm T2 hypoenhancing hepatic mass with central scar centered within segment viii which remains indeterminate, which does not have the typical enhancing pattern for hepatocellular carcinoma. GI service was consulted and the patient had ERCP last week, IR has been consulted and biopsy of the liver was done, tumor marker AFP and CA 27.29 were normal, but CEA, CA 19 -9 and chromogranin A were elevated, final pathology report shows adenocarcinoma , no evidence for hepatocellular carcinoma or breast carcinoma, s/p biliary drainage tube placement by IR due to worsening bilirubin level, clinically she is doing better today, patient had an EGD/colonoscopy yesterday, report showed nonbleeding polyp in the sigmoid area, patient's case was discussed during today 's tumor board conference, will obtain CT scan of the chest with contrast today , patient will follow up with Dr. Melendez at [facility] next week. Oncology: Subj Interval history: Patient seen and examined. Patient states that she does not have abdominal pain this morning, denies nausea/vomiting, patient had EGD/colonoscopy yesterday. Tolerating clear liquid diet this morning. - Constitutional Vitals: Vital Signs Temp Pulse Resp BP Pulse Ox 11/05/16 07:00 98.4 F 74 16 144/74 98 11/05/16 02:59 98.7 F 76 28 148/84 93 11/04/16 23:32 98.7 F 81 26 136/84 94 11/04/16 19:07 99.1 F 70 30 153/89 94 11/04/16 16:25 97.9 F 72 20 147/86 92 11/04/16 13:38 97.3 F L 68 16 158/84 93 11/04/16 11:36 97.3 F L 68 16 160/78 96 11/04/16 10:43 98.0 F 71 20 158/87 92 Intake and Output 11/04/16 11/05/16 11/05/16 23:59 07:59 15:59 Intake Total 360 / 360 Output Total 950 / 950 875 / 875 Balance -950 / -950 -875 / -875 360 / 360 Intake: Oral 360 / 360 Output: Urine 400 / 400 575 / 575 Wound Drainage 550 / 550 300 / 300 Biliary Drain 550 / 550 300 / 300 Other: Meal Breakfast Percent of Meal Consumed 100% # Voids 1 Weight 77.836 kg Blood Glucose* 96 Patient Weight 11/05/16 23:59 Weight 77.836 kg General appearance: cooperative, no acute distress, obese - Respiratory Respiratory exam: Present: CTAB. Absent: chest wall tenderness, rales, respiratory distress, rhonchi, wheezes - Cardiovascular Cardiovascular exam: Present: RRR, +S1, +S2. Absent: clicks, diastolic murmur, rubs, systolic murmur - GI/Abdominal Additional comments: Biliary drainage catheter in place - Extremities Exam Extremities exam: Present: normal inspection. Absent: calf tenderness, tenderness Oncology: Obj Data - Labs CBC & Chem 7: 11/05/16 04:27 11/05/16 04:27 Labs: Laboratory Results - last 24 hr 11/04/16 11/04/16 11/05/16 11:49 17:10 04:27 WBC 8.2 RBC 3.71 L Hgb 11.8 Hct 35.1 L MCV 94.6 MCH 31.8 MCHC 33.6 RDW 17.1 H Plt Count 221 MPV 11.1 Immature Gran % 1.3 Seg Neutrophils % 70.4 Lymphocytes % 16.9 Monocytes % 10.2 Eosinophils % 0.2 Basophils % 1.0 Neutrophils # 5.8 Lymphocytes # 1.4 Monocytes # 0.8 Eosinophils # 0.0 Basophils # 0.1 Sodium Potassium Chloride Carbon Dioxide BUN Creatinine Est GFR ( Amer) Est GFR (Non-Af Amer) BUN/Creatinine Ratio Glucose POC Glucose 86 96 H Calculated Osmolality Calcium 11/05/16 04:27 WBC RBC Hgb Hct MCV MCH MCHC RDW Plt Count MPV Immature Gran % Seg Neutrophils % Lymphocytes % Monocytes % Eosinophils % Basophils % Neutrophils # Lymphocytes # Monocytes # Eosinophils # Basophils # Sodium 137 Potassium 3.1 L Chloride 100 Carbon Dioxide 28 BUN 5 L Creatinine 0.57 Est GFR ( Amer) > 60 Est GFR (Non-Af Amer) > 60 BUN/Creatinine Ratio 9 Glucose 100 H POC Glucose Calculated Osmolality 281 Calcium 9.1 - ABG Interpretation ABG results: PT/INR, D-dimer PT 12.1 Seconds (9.4-12.1) 11/04/16 05:11 Consult Discharge Plan - Plan Referrals: May Miller [employer]KER [Advanced Practice Nurse] - 11/09/16 1:00 pm <Leigha Martinez S - Last Filed: 11/05/16 10:46> Date of Encounter: 11/05/16 - Constitutional Vitals: Vital Signs Temp Pulse Resp BP Pulse Ox 11/05/16 10:14 74 16 144/74 98 11/05/16 07:00 98.4 F 74 16 144/74 98 11/05/16 02:59 98.7 F 76 28 148/84 93 11/04/16 23:32 98.7 F 81 26 136/84 94 11/04/16 19:07 99.1 F 70 30 153/89 94 11/04/16 16:25 97.9 F 72 20 147/86 92 11/04/16 13:38 97.3 F L 68 16 158/84 93 11/04/16 11:36 97.3 F L 68 16 160/78 96 11/04/16 10:43 98.0 F 71 20 158/87 92 Intake and Output 11/04/16 11/05/16 11/05/16 23:59 07:59 15:59 Intake Total 1000 / 1000 360 / 360 Output Total 950 / 950 875 / 875 Balance -950 / -950 125 / 125 360 / 360 Intake: IV Fluids 1000 / 1000 D5% And 0.45% Nacl 1000 1000 / 1000 Ml Bag 1,000 ML @ 75 mls/ hr IVC .[id number] [facility] Rx#: [id number] Oral 360 / 360 Output: Urine 400 / 400 575 / 575 Wound Drainage 550 / 550 300 / 300 Biliary Drain 550 / 550 300 / 300 Other: Meal Breakfast Percent of Meal Consumed 100% # Voids 1 Weight 77.836 kg Blood Glucose* 96 Patient Weight 11/05/16 23:59 Weight 77.836 kg Oncology: Obj Data - Labs CBC & Chem 7: 11/05/16 04:27 11/05/16 04:27 Labs: Laboratory Results - last 24 hr 11/04/16 11/04/16 11/05/16 11:49 17:10 04:27 WBC 8.2 RBC 3.71 L Hgb 11.8 Hct 35.1 L MCV 94.6 MCH 31.8 MCHC 33.6 RDW 17.1 H Plt Count 221 MPV 11.1 Immature Gran % 1.3 Seg Neutrophils % 70.4 Lymphocytes % 16.9 Monocytes % 10.2 Eosinophils % 0.2 Basophils % 1.0 Neutrophils # 5.8 Lymphocytes # 1.4 Monocytes # 0.8 Eosinophils # 0.0 Basophils # 0.1 Sodium Potassium Chloride Carbon Dioxide BUN Creatinine Est GFR ( Amer) Est GFR (Non-Af Amer) BUN/Creatinine Ratio Glucose POC Glucose 86 96 H Calculated Osmolality Calcium 11/05/16 04:27 WBC RBC Hgb Hct MCV MCH MCHC RDW Plt Count MPV Immature Gran % Seg Neutrophils % Lymphocytes % Monocytes % Eosinophils % Basophils % Neutrophils # Lymphocytes # Monocytes # Eosinophils # Basophils # Sodium 137 Potassium 3.1 L Chloride 100 Carbon Dioxide 28 BUN 5 L Creatinine 0.57 Est GFR ( Amer) > 60 Est GFR (Non-Af Amer) > 60 BUN/Creatinine Ratio 9 Glucose 100 H POC Glucose Calculated Osmolality 281 Calcium 9.1 - Impressions Impressions Guidance Needle Placement Ultrasound 11/01/16 00:00 IMPRESSION: Successful PTC with internal-external biliary drain placement from a left hepatic approach using a 10 Irish catheter. D/ / 11/01/2016 17:10:04 Vincent Strauss MD / bob Interpreting Provider: Vincent Strauss MD Percutaneous Drainage 11/01/16 00:00 IMPRESSION: Successful PTC with internal-external biliary drain placement from a left hepatic approach using a 10 Irish catheter. D/ / 11/01/2016 17:10:04 Vincent Strauss MD / bob Interpreting Provider: Vincent Strauss MD Percutaneous Drainage 11/01/16 00:00 IMPRESSION: Successful PTC with internal-external biliary drain placement from a left hepatic approach using a 10 Irish catheter. D/ / 11/01/2016 17:10:04 Vincent Strauss MD / bob Interpreting Provider: Vincent Strauss MD - ABG Interpretation ABG results: PT/INR, D-dimer PT 12.1 Seconds (9.4-12.1) 11/04/16 05:11 - Attending Attestation I examined this patient and my medical decision-making was reviewed with the Advanced Practice Nurse. I agree with the documented findings, disposition and treatment plan as described except to the extent set forth below. 1. Centrally located liver lesion causing biliary obstruction and elevated liver enzymes. Cholangiocarcinoma is high on the differential Elevated CA-19-9 of 3900 and 10/28/2016. Some of this could be secondary to biliary obstruction MRI liver 10/28/2016 showed 0.4 cm hypoenhancing lesion segment 8 EGD colonoscopy unremarkable on 11/04/2016 other than 5 mm polyp in the colon ERCP 10/28/2016 showed high-grade stricture in the hepatic hilum. Temporary stent placed PTCA with external tube drainage of the left lobe of the liver done on 2016. Direct bilirubin 7.3 prior to that and improving Discussed at GI tumor Board today 11/05/2016 Surgical consult for resectability. Creatinine normal at 0.6 on 11/05/2016 May consider systemic chemotherapy once bilirubin improves. Cisplatin Gemzar or Xeloda based combination
[2016-11-05] MEDS: ARIPiprazole 10 MG TABLET PO SCH (09:46)
[2016-11-05] MEDS: Diltiazem CD (24hr) 180 MG CAPSULE PO SCH (09:46)
[2016-11-05] MEDS: clonazePAM 1 MG TABLET PO SCH ×2 (09:46→17:13)
[2016-11-05] MEDS: lamoTRIgine 100 MG TABLET PO SCH (09:47)
[2016-11-05] MEDS: Nicotine 21 MG PATCH.TD24 TD SCH (09:50)
[2016-11-05] MEDS: D5% in 0.45% NACL 1,000 ML IVC SCH (09:52)
[2016-11-05 14:58] VITALS: BP 125/83
--- NOTE | 2016-11-05 16:08 | Discharge Summary ---
Date of Encounter: 11/05/16 Time of Encounter: 15:00 - Discharge Diagnosis (1) Liver masses Priority: Primary Status: Inactive (2) Jaundice Priority: Primary Status: Inactive (3) Ulcerative colitis Priority: Secondary Status: Chronic Qualifiers: Ulcerative colitis location: unspecified ulcerative colitis location Digestive disease complication type: without complication Qualified Code(s): K51.90 - Ulcerative colitis, unspecified, without complications (4) Bipolar disease, chronic Priority: Secondary Status: Chronic (5) DVT prophylaxis Priority: Secondary Status: Acute - Discharge Medications Prescriptions: Commode - Three In One [THREE IN ONE COMMODE] 1 each .ROUTE PRN PRN #1 each PRN Reason: Weakness Nicotine Patch [Nicoderm] 21 mg TD DAILY #14 patch.td24 Potassium Chloride 20 meq PO DAILY #30 tab.er.prt Walker W Wheels [WHEELED WALKER] 1 each .ROUTE AD #1 each Home Medications: Albuterol Sulfate [Albuterol Inhaler] 2 puff IH Q4HR PRN 02/14/15 [History] Buspirone [Buspar] 15 mg PO BID 02/14/15 [History] ClonazePAM [Klonopin] 1 mg PO TID 02/14/15 [History] Sulfasalazine [Azulfidine] 500 mg PO Q6HR 02/14/15 [History] Diltiazem CD (24hr) [Cardizem CD] 180 mg PO DAILY 08/25/15 [History] Pravastatin Sodium [Pravachol] 40 mg PO QAM 08/25/15 [History] traZODone [TraZODone] 100 mg PO HS 09/20/15 [History] ARIPiprazole [Abilify] 10 mg PO DAILY 10/27/16 [History] Duloxetine HCl [Cymbalta] 120 mg PO DAILY 10/27/16 [History] Calcium Carbonate/Vitamin D3 [Calcium 600 + Vit D Tablet] 1 each PO DAILY [History] Gabapentin [Neurontin] 100 mg PO BID 10/28/16 [History] Vitamin E 100 unit PO DAILY 10/28/16 [History] lamoTRIgine [Lamotrigine] 200 mg PO DAILY 10/28/16 [History] Commode - Three In One [THREE IN ONE COMMODE] 1 each .ROUTE PRN PRN #1 each [Rx] Nicotine Patch [Nicoderm] 21 mg TD DAILY #14 patch.td24 11/05/16 [Rx] Potassium Chloride 20 meq PO DAILY #30 tab.er.prt 11/05/16 [Rx] Walker W Wheels [WHEELED WALKER] 1 each .ROUTE AD #1 each 11/05/16 [Rx] Allergies/Adverse Reactions: Allergies griseofulvin [From Fulvicin P/G] Allergy (Verified 10/28/16 12:40) Hives acetaminophen [From Percocet] Adverse Reaction (Verified 10/28/16 12:40) Itching Oxycodone [From Percocet] Adverse Reaction (Verified 10/28/16 12:40) Itching Procedures/tests Complete & Pending: Procedures Performed prior 72 hours Category Date Time Status CT chest w con [CT] Routine Cat Scan 11/05/16 10:30 Completed - Notes to Outpatient Provider 1. Patient has hypokalemia, she was placed on potassium chloride 20 mEq daily, please repeat BMP in 1 week. 2. Patient was found enlarged thyroid, need thyroid ultrasound, please order it as outpatient. Date of admission: 11/02/16 14:38 Primary care physician: Marybel Head Consults: 10/27/16 23:36 Consult to Gastroenterology [CONS] Routine Consulting Provider: Gastroenterology [facility] Reason for Consult: Liver mass, concerning for mets Call Completed: No 10/28/16 08:27 Consult to Interventional Radiology [CONS] Routine Consulting Provider: Radiology Interventional [facility] Reason for Consult: Liver masses, for biopsy Call Completed: Yes 10/28/16 08:28 Consult to Oncology [CONS] Routine Consulting Provider: Oncology [facility] Reason for Consult: Multiple liver masses, suspected mets, no known primary source Call Completed: No 11/01/16 08:21 Consult to Interventional Radiology [CONS] Routine Consulting Provider: Radiology Interventional [facility] Reason for Consult: Obstructive jaundice, for PTC Call Completed: No 11/04/16 13:36 Consult to Occupational Therapy [CONS] Routine Comment: Evaluate, develop and implement POC Reason for Consult: eval and treat Consult to Physical Therapy [CONS] Routine Comment: Evaluate, develop and implement POC Reason for Consult: eval and treat Discharging clinician: Lazaro Busby Anticipated date of discharge: 11/05/16 - Patient Status Disposition: Home, Self-Care Condition: Fair Functional capacity at discharge: independent ambulation Overall status at discharge: patient is progressing back to baseline - Discharge Instructions Follow Up With: May Miller CNP [Advanced Practice Nurse] - 11/09/16 1:00 pm Ozzy Melendez MD [Partnered Physician] - 11/12/16 - Diet and Activity Activity: increase activity as tolerated Diet: advance to your usual diet Interval History: Ms. Talamantes is a 66 year old female with history of ulcerative colitis, SLE presents with complaints of diffuse abdominal pain and diarrhea for one week. Patient reports sudden onset of 10/10 diffuse burning and sharp abdominal pain, associated with multiple very soft nonbloody bowel movements per day. No associated nausea, vomiting, fever or chills. No melena or hematochezia. Patient is on treatment for ulcerative colitis and reports no history of frequent diarrhea or hematochezia. No urinary complaints. No similar previous episodes. Hospital course: Ms. Talamantes is a 66 year old female admitted for abdominal pain. She was found liver mass by abdominal CAT scan. Biopsy has been done, shows adenocarcinoma. Oncology consult saw patient, patient will follow up with oncology as outpatient. Patient also has obstructive jaundice upon admission, GI consult was called, ERCP has been done and stent placed. However, her bilirubin level did not get down. IR consult called and pt had PTC drainage, bilirubin level gradually and slightly get down after drainage. Patient had endoscope and colonoscopy to figure THE origin of carcinoma, results are unremarable. Discussed with oncology, no further test in the hospital, patient will be discharged home and follow-up with oncology as outpatient. I saw and examined the patient today. She is awake alert, oriented 3. Abdominal pain has improved. PTC bilary drainage in place with good bile output. Patient has mild hypokalemia, potassium supplement has been given. Patient was found enlarged thyroid incidentally, need US thyroid, which will be done as outpatient. Time spent discussing smoking cessation with patient: more than 10 minutes - Time Spent with Patient Total time spent providing and/or coordinating discharge services: 40 min Greater than 30 minutes - Constitutional Vitals: Temp Pulse Resp BP Pulse Ox 98.0 F 70 15 125/83 94 11/05/16 14:00 11/05/16 14:00 11/05/16 14:00 11/05/16 14:00 11/05/16 14:00 General appearance: Present: A&O X 3, pleasant, obese, answers questions appropriately - Head Head exam: Present: atraumatic, normocephalic - Eye Eye exam: Present: PERRL, conjuntiva pink, sclera anicteric Pupils: Present: PERRL - Neck Neck exam general surgery: Present: supple, trachea midline. Absent: lymphadenopathy - Respiratory Respiratory exam: Present: CTAB. Absent: accessory muscle use, rales, rhonchi, wheezes - Cardiovascular Cardiovascular exam: Present: RRR, +S1, +S2. Absent: diastolic murmur, gallop, rubs, systolic murmur - GI/Abdominal GI/Abdominal exam: Present: normal bowel sounds, soft, no peritoneal signs. Absent: distended, tenderness Additional comments: PTC drainage in place - Extremities Exam Extremities exam: Present: warm, radial pulses palpable and symetrical. Absent : calf tenderness, cyanotic, pedal edema - Neurological Exam Neurological exam: Present: CN II-XII intact, oriented X3, no focal deficits. Absent: pronater drift, facial droop, speech deficit - Skin Skin exam: Present: dry, intact - VTE Documentation of Mechanical Device: Intermittent pneumatic compression device
== END 2016-11-05 19:53 | disposition home or self-care (01) | DRG 261 ==
LOC: 3ANU → SUATTDRO 21:57
PROVIDERS: ADMIT Internal Medicine; ATTEND Internal Medicine
PROC: IRLIVER (2016-10-28 13:15)

== ENCOUNTER 2016-12-17 19:12 | Inpatient (IN) ==
--- NOTE | 2016-12-17 19:33 | Emergency Department Note ---
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, Elevated troponin Altered mental status Qualifiers: Altered mental status type: delirium Qualified Code(s): R41.0 - Disorientation , unspecified Disposition: Admitted As Inpatient Condition: Serious Referrals: Unassigned,Provider [Non-Partnered Physician] - Forms: Work/School Release, ED Satisfaction Letter Time of Disposition: 20:57 General Adult HPI - General Chief complaint: ED General Medical Stated complaint: AMS elevated ammonia level Time Seen by Provider: 12/17/16 19:14 Source: patient, EMS Limitations: altered mental status Nursing Notes Reviewed: Yes Vital Signs Reviewed: Yes - History of Present Illness HPI Narrative: History of present illness: 66-year-old female by EMS from local longterm facility for chief complaint of "altered mental status". Patient has a history of metastatic carcinoma presumably primary from GI to liver resulting in biliary blockage. Patient has a percutaneous back seam stitcher to me drainage tube which strains bile. She recently had a chest port placed for vascular access. Was sent in from the snf for decreasing mental status and increasing ammonia levels despite her current therapy with lactulose. History of trauma, fever, chills, shortness of breath or chest pain. Patient knows where she is in who she is but she is unclear on the dates and other specifics. Patient is icteric and jaundiced. Her back seam stitcher me tube is draining bile. She is afebrile with stable vital signs. Patient will have a serum ammonia level here among other screening labs. Plan is admission for presumed hepatic encephalopathy. Provided 45 minutes of critical care services for this patient. Patient is under the care of oncology at [facility]. Has not had any chemotherapy or radiation therapy at this time. Pain Scale: 0 - Related Data Home Medications Medication Instructions Recorded Confirmed Buspirone [Buspar] 15 mg PO BID 02/14/15 12/17/16 ClonazePAM [Klonopin] 1 mg PO TID PRN 02/14/15 12/17/16 Diltiazem CD (24hr) [Cardizem CD] 180 mg PO DAILY 08/25/15 12/17/16 ARIPiprazole [Abilify] 10 mg PO DAILY 10/27/16 12/17/16 Duloxetine HCl [Cymbalta] 60 mg PO BID 10/27/16 12/17/16 lamoTRIgine [Lamotrigine] 200 mg PO DAILY 10/28/16 12/17/16 Docusate Sodium [Dok] 100 mg PO BID 12/17/16 12/17/16 Lactulose [Lactulose] 20 gm PO BID 12/17/16 12/17/16 Sennosides [Senna] 8.6 mg PO DAILY 12/17/16 12/17/16 Previous Rx's Medication Instructions Recorded Morphine Immed Rel [Morphine 15 mg PO Q2H PRN #90 tab 11/12/16 Sulfate] Morphine Sulfate [Arymo ER] 15 mg PO Q12H #60 tab.po.er 11/12/16 Nicotine Patch [Nicoderm] 21 mg TD DAILY #30 patch.td24 11/19/16 Allergies Allergy/AdvReac Type Severity Reaction Status Date / Time griseofulvin Allergy Hives Verified 10/28/16 12:40 [From Fulvicin P/G] acetaminophen [From Percocet] AdvReac Itching Verified 10/28/16 12:40 Oxycodone [From Percocet] AdvReac Itching Verified 10/28/16 12:40 Past Medical History - Past Medical History Medical history: Reports: arthritis, COPD, hyperlipidemia, liver disease, valvular heart disease Surgical history: Reports: appendectomy, knee replacement Psychiatric history: Reports: anxiety, bipolar, depression 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 CBC within normal limits. Awaiting blood chemistry levels and head CT. Chest x-ray shows worsening atelectasis. Disposition/ admission pending Time: 20:42 Reevaluation #2: ED workup is complete. Serum ammonia level is within normal limits however serum sodium critically low at 127. B and creatinine elevated. And critically elevated troponin at 0.48. It has never been this elevated before no acute changes on EKG. Discussed the case with the hospitalist , who accepted the patient for admission. Provided a total of one hour critical care service for this patient. Time: 20:55 Vital Signs Temperature 97.8 F 12/17/16 19:14 Pulse Rate 94 12/17/16 19:14 Respiratory Rate 20 12/17/16 19:14 Blood Pressure 109/71 12/17/16 19:14 O2 Sat by Pulse Oximetry 93 12/17/16 19:14 Temperature 97.8 F 12/17/16 19:14 Pulse Rate 94 12/17/16 19:14 Respiratory Rate 20 12/17/16 19:14 Blood Pressure 109/71 12/17/16 19:14 O2 Sat by Pulse Oximetry 93 12/17/16 19:14 Oxygen Delivery Oxygen Delivery Room Air Medical Decision Making - Medical Records Medical records reviewed: Yes I reviewed the patient's medical records. - Lab Data Lab results reviewed: Yes I reviewed the patient's lab results. Result diagrams: 12/17/16 20:20 12/17/16 20:20 Lab Results 12/17/16 12/17/16 12/17/16 Range/Units 20:20 20:20 20:20 WBC 9.4 (4.3-11.1) K/mcL RBC 3.40 L (3.82-4.97) M/mcL Hgb 10.4 L (11.5-15.4) g/dL Hct 31.0 L (35.3-44.9) % MCV 91.2 (83.0-100.0) fL MCH 30.6 (28.0-33.3) pg MCHC 33.5 (31.6-35.5) g/dL RDW 14.2 (11.5-14.5) % Plt Count 258 (140-400) K/mcL MPV 10.0 (9.4-12.4) fL Immature Gran % 1.4 (0-4) % Seg Neutrophils % 74.9 % Lymphocytes % 12.4 % Monocytes % 10.4 % Eosinophils % 0.0 % Basophils % 0.9 % Neutrophils # 7.0 (1.6-8.9) K/mcL Lymphocytes # 1.2 (0.6-4.6) K/mcL Monocytes # 1.0 (0.0-1.3) K/mcL Eosinophils # 0.0 (0.0-0.6) K/mcL Basophils # 0.1 (0.0-0.2) K/mcL PT 15.1 H (9.4-12.1) Seconds INR 1.4 APTT 56.7 H (26.0-36.0) Seconds Sodium 127 L (136-145) mEq/L Potassium 3.4 L (3.5-4.5) mEq/L Chloride 89 L (98-109) mEq/L Carbon Dioxide 26 (19-29) mEq/L BUN 37 H (7-20) mg/dL Creatinine 1.31 H (0.57-1.11) mg/dL Est GFR ( Amer) 50 L (> 60) Est GFR (Non-Af Amer) 41 L (> 60) BUN/Creatinine Ratio 28 H (6-26) Glucose 139 H (70-99) mg/dL Calculated Osmolality 275 L (280-300) Calcium 9.8 (8.6-10.8) mg/dL Total Bilirubin 7.2 H (0.2-1.2) mg/dL Direct Bilirubin 5.8 H (0.0-0.5) mg/dL Indirect Bilirubin 1.4 H (0.0-1.2) mg/dL AST 62 H (5-34) Units/L ALT 67 H (0-55) Units/L Alkaline Phosphatase 448 H (38-126) Units/L Ammonia (18-72) mcmol/L Troponin I (0-0.03) ng/mL Serum Total Protein 7.0 (6.0-8.3) g/dL Albumin 2.4 L (3.5-5.0) g/dL Globulin 4.6 H (2.4-3.5) g/dL Albumin/Globulin Ratio 0.5 L (1.1-2.2) Ethyl Alcohol < 10 (0-10) mg/dL 12/17/16 12/17/16 Range/Units 20:20 20:20 WBC (4.3-11.1) K/mcL RBC (3.82-4.97) M/mcL Hgb (11.5-15.4) g/dL Hct (35.3-44.9) % MCV (83.0-100.0) fL MCH (28.0-33.3) pg MCHC (31.6-35.5) g/dL RDW (11.5-14.5) % Plt Count (140-400) K/mcL MPV (9.4-12.4) fL Immature Gran % (0-4) % Seg Neutrophils % % Lymphocytes % % Monocytes % % Eosinophils % % Basophils % % Neutrophils # (1.6-8.9) K/mcL Lymphocytes # (0.6-4.6) K/mcL Monocytes # (0.0-1.3) K/mcL Eosinophils # (0.0-0.6) K/mcL Basophils # (0.0-0.2) K/mcL PT (9.4-12.1) Seconds INR APTT (26.0-36.0) Seconds Sodium (136-145) mEq/L Potassium (3.5-4.5) mEq/L Chloride (98-109) mEq/L Carbon Dioxide (19-29) mEq/L BUN (7-20) mg/dL Creatinine (0.57-1.11) mg/dL Est GFR ( Amer) (> 60) Est GFR (Non-Af Amer) (> 60) BUN/Creatinine Ratio (6-26) Glucose (70-99) mg/dL Calculated Osmolality (280-300) Calcium (8.6-10.8) mg/dL Total Bilirubin (0.2-1.2) mg/dL Direct Bilirubin (0.0-0.5) mg/dL Indirect Bilirubin (0.0-1.2) mg/dL AST (5-34) Units/L ALT (0-55) Units/L Alkaline Phosphatase (38-126) Units/L Ammonia 57 (18-72) mcmol/L Troponin I 0.42 H* (0-0.03) ng/mL Serum Total Protein (6.0-8.3) g/dL Albumin (3.5-5.0) g/dL Globulin (2.4-3.5) g/dL Albumin/Globulin Ratio (1.1-2.2) Ethyl Alcohol (0-10) mg/dL - Radiology Data Radiology results reviewed: Yes I reviewed the patient's radiology results. - EKG Data EKG #1 EKG attestation: Yes I reviewed and interpreted this EKG. EKG results narrative: Twelve-lead EKG interpreted [place] [facility] shows: Sinus rhythm at 90 bpm period. 165 ms within normal limits secure anabaptist 80 ms within normal limits QT corrected at 372 ms within normal limits. Normal axis intervals no acute ischemic changes are noted. No acute changes when compared to prior EKG 2016.
[2016-12-17 20:34] LABS: Basophils # 0.1 K/mcL (0.0-0.2); Basophils % 0.9 %; Hemoglobin 10.4 g/dL (11.5-15.4); INR 1.4; Immature Granulocytes % 1.4 % (0-4); Lymphocytes # 1.2 K/mcL (0.6-4.6); Lymphocytes % 12.4 %; Mean Corpuscular HGB Conc 33.5 g/dL (31.6-35.5); Mean Corpuscular Hemoglobin 30.6 pg (28.0-33.3); Mean Corpuscular Volume 91.2 fL (83.0-100.0); Monocytes % 10.4 %; Platelet Count 258 K/mcL (140-400); Prothrombin Time 15.1 Seconds (9.4-12.1); Red Cell Distribution Width 14.2 % (11.5-14.5); Segmented Neutrophils % 74.9 %
[2016-12-17 20:36] LABS: Activated Partial Thrombo Time 56.7 Seconds (26.0-36.0)
[2016-12-17 20:43] LABS: Alanine Aminotransferase 67 Units/L (0-55); Albumin 2.4 g/dL (3.5-5.0); Albumin/Globulin Ratio 0.5 (1.1-2.2); Alkaline Phosphatase 448 Units/L (38-126); Aspartate Amino Transferase 62 Units/L (5-34); BUN/Creatinine Ratio 28 (6-26); Bilirubin,Direct 5.8 mg/dL (0.0-0.5); Bilirubin,Indirect 1.4 mg/dL (0.0-1.2); Bilirubin,Total 7.2 mg/dL (0.2-1.2); Blood Urea Nitrogen 37 mg/dL (7-20); Calcium 9.8 mg/dL (8.6-10.8); Carbon Dioxide 26 mEq/L (19-29); Chloride 89 mEq/L (98-109); Ethanol < 10 mg/dL (0-10); Globulin 4.6 g/dL (2.4-3.5); Glucose 139 mg/dL (70-99); Osmolality,Calculated 275 (280-300); Potassium 3.4 mEq/L (3.5-4.5); Sodium 127 mEq/L (136-145); eGFR For African Americans 50 (> 60); eGFR For Non-African Americans 41 (> 60)
[2016-12-17] MEDS ORDERED: Naloxone 0.4 MG/ML INJ IVP PRN (21:33)
[2016-12-17] MEDS ORDERED: *HR* Morphine Immed Rel 30 MG TABLET PO PRN (21:35)
[2016-12-17] MEDS ORDERED: 0.9 % Sodium Chloride 500 ML IVC ONE (22:55)
[2016-12-17] MEDS ORDERED: 0.9 % Sodium Chloride 1,000 ML IVC SCH (23:00)
--- NOTE | 2016-12-17 23:03 | Internal Med History&Physical ---
<Seymour Karimi - Last Filed: 12/17/16 23:38> Date of Encounter: 12/17/16 Time of Encounter: 22:56 Assessment and Plan (1) Acute encephalopathy Current visit: Yes Status: Acute Possible causes include hepatic encephalopathy, infection, dehydration. Her sodium reading is only 127 and recent measurements revealed sodiums in the low 130s so it is unlikely that hyponatremia is contributing to her altered mental status. Apparently her ammonia was 130 at the [facility] and lactulose was given, ammonia was 57 here. We will continue lactulose. No obvious signs of infection but UA is pending, will check blood cultures peripherally and from her recently placed port. We will hold off on antibiotics at this time until a possible source of infection can be found. Will rehydrate. (2) Hyponatremia Current visit: Yes Status: Acute Mild with a sodium of 127, recent measurements have been in the low 130s. I do not feel her symptoms are related to her sodium. Patient appears hypovolemic. We will give 500 mL normal saline bolus followed by normal saline at 100 mL per hour. Encourage by mouth intake. Recheck sodium in 6 hours. We will check serum osmolality, urine osmolality, urine sodium. (3) Intrahepatic cholangiocarcinoma Current visit: No Status: Suspected Patient's symptoms could all be related to worsening of her aggressive cholangiocarcinoma. Patient recently had a port placed and plans to start chemotherapy soon. She wishes to continue to be aggressive in her treatments and would like to remain a full code. (4) Acute kidney injury Current visit: Yes Status: Acute Creatinine elevated at 1.31 with no history of chronic kidney disease. Likely related to dehydration. Will fluid hydrate as discussed above and recheck kidney function the morning. Patient has good urine output. (5) Elevated troponin Current visit: Yes Status: Acute Likely related to overall stress and poor clearance in the setting of dehydration and acute kidney injury. Patient has no chest pain or EKG changes concerning for acute ischemia, no history of coronary disease, concern for ACS is low. Will fluid hydrate and recheck in the morning. (6) Anxiety Current visit: No Status: Chronic Stable. Continue home Klonopin. (7) Depression Current visit: No Status: Chronic Stable. Continue home medications. Qualifiers: Depression Type: unspecified Qualified Code(s): F32.9 - Major depressive disorder, single episode, unspecified (8) DVT prophylaxis Current visit: No Status: Acute EPCDs Internal Medicine - H&P: HPI Chief complaint: AMS Admitted From: Emergency Dept Plans for Post Hospital Care: Transfer Jail Facility History of present illness: Ms. Talamantes is a 66 year old female with history of recently diagnosed cholangiocarcinoma presents with altered mental status. Patient is somewhat altered so the majority of the history is provided by the patient's daughter. Patient's daughter states that over the last several days patient has had worsening generalized weakness, poor by mouth intake, confusion has gradually been worsening. Patient's daughter states that she had similar symptoms several weeks ago and was admitted to [facility] with sepsis and hyponatremia. In discussion with the patient she has no specific complaints at this time however she is very slow to answer questions. She does report some mild lower abdominal pain. She denies fever, chills, cough, sore throat, shortness of breath, chest pain, nausea, vomiting, diarrhea, dysuria. Past Med Surg Social Fam HX - Past Medical History Medical history: arthritis, COPD, hyperlipidemia, liver disease, valvular heart disease Psychiatric history: anxiety, bipolar, depression - Past Surgical History Surgical History: appendectomy, knee replacement - Social History Smoking Status: Former smoker Smokeless Tobacco Status: No Alcohol use: none Drug use: none Current living situation: Assisted Living - Family History Brother Living Status: Hx Family Cancer: Yes (Colon cancer) Mother Living Status: Still Living Hx Family Endocrine Disorder: Yes (DM) Hx Family Medical Disorders: Yes (throat cancer) Internal Medicine - H&P: Meds Buspirone [Buspar] 15 mg PO BID 02/14/15 [History] ClonazePAM [Klonopin] 1 mg PO TID PRN 02/14/15 [History] Diltiazem CD (24hr) [Cardizem CD] 180 mg PO DAILY 08/25/15 [History] ARIPiprazole [Abilify] 10 mg PO DAILY 10/27/16 [History] Duloxetine HCl [Cymbalta] 60 mg PO BID 10/27/16 [History] lamoTRIgine [Lamotrigine] 200 mg PO DAILY 10/28/16 [History] Morphine Immed Rel [Morphine Sulfate] 15 mg PO Q2H PRN #90 tab 11/12/16 [Rx] Morphine Sulfate [Arymo ER] 15 mg PO Q12H #60 tab.po.er 11/12/16 [Rx] Nicotine Patch [Nicoderm] 21 mg TD DAILY #30 patch.td24 11/19/16 [Rx] Docusate Sodium [Dok] 100 mg PO BID 12/17/16 [History] Lactulose [Lactulose] 20 gm PO BID 12/17/16 [History] Sennosides [Senna] 8.6 mg PO DAILY 12/17/16 [History] Allergies griseofulvin [From Fulvicin P/G] Allergy (Verified 10/28/16 12:40) Hives acetaminophen [From Percocet] Adverse Reaction (Verified 10/28/16 12:40) Itching Oxycodone [From Percocet] Adverse Reaction (Verified 10/28/16 12:40) Itching ROS unobtainable: due to mental status (Review of systems is limited due to stated in the history of present illness due to the patient's mental status) All Systems PM: A 10-system review of systems was performed and is negative for pertinent findings except as documented above in the HPI. - Constitutional Vitals: Temp Pulse Resp BP Pulse Ox 98.6 F 79 17 104/73 93 12/17/16 22:05 12/17/16 22:05 12/17/16 22:05 12/17/16 22:05 12/17/16 22:05 General appearance: Present: A&O X 3 (Patient has some difficulty in answering questions), no acute distress - Head Head exam: Present: atraumatic, normal inspection, normocephalic - Eye Eye exam: Present: EOMI, PERRL, scleral icterus - ENT ENT exam: Present: mucous membranes dry - Neck Neck exam general surgery: Present: full ROM. Absent: nuchal rigidity - Respiratory Respiratory exam: Present: CTAB. Absent: rales, rhonchi, wheezes - Cardiovascular Cardiovascular exam: Present: RRR. Absent: gallop, rubs, systolic murmur - GI/Abdominal GI/Abdominal exam: Present: distended, normal bowel sounds, soft, tenderness ( Mild, diffuse) Additional comments: Patient has a biliary drain present that is draining bile. Mild erythema around the drain site but no pustular drainage or bleeding from around the drain or within the drain noted - Extremities Exam Extremities exam: Present: warm. Absent: pedal edema, tenderness - Neurological Exam Neurological exam: Present: alert, altered, CN II-XII intact, oriented X3, no focal deficits, strengths equal and symetr throughout. Absent: motor sensory deficit, facial droop - Psychiatric Psychiatric exam: Present: flat affect - Skin Skin exam: Present: dry, intact, warm Additional comments: Diffuse jaundice Internal Med - H&P Results - Labs CBC & Chem 7: 12/17/16 20:20 12/17/16 20:20 <Balaji Agosto - Last Filed: 12/18/16 03:43> Date of Encounter: 12/17/16 Assessment and Plan (1) Hypokalemia Current visit: Yes Status: Acute may be related to inadequate intake, we will replace and follow BMP (2) Anemia Current visit: Yes Status: Acute may be related to chronic disease, we will follow Qualifiers: Anemia type: other cause Other causes of anemia: sideroblastic, secondary to disease Qualified Code(s): 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 Talamantes is a 66 year old female All Systems PM: A 10-system review of systems was performed and is negative for pertinent findings except as documented above in the HPI. - Constitutional Vitals: Temp Pulse Resp BP Pulse Ox 98.8 F 77 18 104/73 93 12/18/16 00:06 12/18/16 00:06 12/18/16 00:06 12/17/16 22:05 12/18/16 00:06 Internal Med - H&P Results - Labs CBC & Chem 7: 12/17/16 20:20 12/17/16 20:20 Labs: Urine 12/17/16 Range/Units 23:35 Urine Color [place] A (Yellow) Urine Clarity Cloudy A (Clear) Urine pH 6.0 (5.0-8.0) pH Units Ur Specific [place] 1.018 (1.010-1.025) Urine Protein Trace (Neg-Trace) mg/dL Urine Glucose (UA) Normal (Normal) mg/dL - Attending Attestation I personally interviewed and examined this patient and my medical decision- making was reviewed with the Resident Physician. I agree with the documented findings, disposition and treatment plan as described. Balaji Agosto MD, MPH Hospitalist
[2016-12-17 23:46] LABS: Bilirubin,Urine Moderate (Negative); Blood,Urine Negative (Negative); Clarity,Urine Cloudy (Clear); Color,Urine Orange (Yellow); Glucose,Urine (UA) Normal (Normal); Ketones,Urine Negative (Negative); Leukocyte Esterase,Urine Moderate (Negative); Nitrite,Urine Negative (Negative); Protein,Urine Trace mg/dL (Neg-Trace); Specific Gravity,Urine 1.018 (1.010-1.025); Urobilinogen,Urine Normal (Normal)
[2016-12-17 23:49] LABS: Squamous Epithelial Cell,Urine Many per lpf (None-Few)
[2016-12-17 23:54] LABS: Amphetamine Screen,Urine Negative ng/mL (Cutoff=1000); Barbiturate Screen,Urine Negative ng/mL (Cutoff=200); Benzodiazepines Screen,Urine Positive ng/mL (Cutoff=200); Cannabinoid Screen,Urine Negative ng/mL (Cutoff = 50); Cocaine Screen,Urine Negative ng/mL (Cutoff= 300); Opiate Screen,Urine Positive ng/mL (Cutoff=300); Phencyclidine Screen,Urine Negative ng/mL (Cutoff=25)
[2016-12-18] LABS: RBC,Urine 0-3 per hpf (0-3)
[2016-12-18 00:02] LABS: Sodium, Urine < 20.0 mEq/L
[2016-12-18] MEDS: clonazePAM 1 MG TABLET PO PRN (00:04)
[2016-12-18] MEDS: *HR* Morphine Sulfate SR (12 HR) 15 MG TABLET.ER PO SCH ×3 (00:04→22:05)
[2016-12-18 00:05] LABS: Bacteria,Urine Few per hpf (None-Few); Calcium Oxalate Crystals,Urine Present
[2016-12-18 00:20] LABS: Osmolality,Urine 371 mOsm/kg (300-1090)
[2016-12-18 04:41] LABS: Basophils # 0.1 K/mcL (0.0-0.2); Eosinophils % 0.3 %; Hematocrit 28.1 % (35.3-44.9); Hemoglobin 9.4 g/dL (11.5-15.4); Immature Granulocytes % 1.6 % (0-4); Lymphocytes # 1.6 K/mcL (0.6-4.6); Lymphocytes % 20.7 %; Mean Corpuscular HGB Conc 33.5 g/dL (31.6-35.5); Mean Corpuscular Hemoglobin 30.8 pg (28.0-33.3); Mean Corpuscular Volume 92.1 fL (83.0-100.0); Mean Platelet Volume 10.2 fL (9.4-12.4); Monocytes # 0.9 K/mcL (0.0-1.3); Monocytes % 11.7 %; Platelet Count 238 K/mcL (140-400); Red Blood Count 3.05 M/mcL (3.82-4.97); Red Cell Distribution Width 14.3 % (11.5-14.5); Segmented Neutrophils % 64.7 %
[2016-12-18 04:56] LABS: INR 1.4; Prothrombin Time 14.8 Seconds (9.4-12.1)
[2016-12-18 05:02] LABS: Alanine Aminotransferase 61 Units/L (0-55); Albumin 2.2 g/dL (3.5-5.0); Albumin/Globulin Ratio 0.6 (1.1-2.2); Alkaline Phosphatase 403 Units/L (38-126); Aspartate Amino Transferase 63 Units/L (5-34); BUN/Creatinine Ratio 35 (6-26); Bilirubin,Direct 5.2 mg/dL (0.0-0.5); Bilirubin,Indirect 1.2 mg/dL (0.0-1.2); Bilirubin,Total 6.4 mg/dL (0.2-1.2); Blood Urea Nitrogen 36 mg/dL (7-20); Calcium 9.1 mg/dL (8.6-10.8); Carbon Dioxide 26 mEq/L (19-29); Chloride 94 mEq/L (98-109); Globulin 3.9 g/dL (2.4-3.5); Glucose 83 mg/dL (70-99); Osmolality,Calculated 275 (280-300); Phosphorous 4.3 mg/dL (2.3-4.7); Potassium 3.5 mEq/L (3.5-4.5); Sodium 129 mEq/L (136-145); Total Protein 6.1 g/dL (6.0-8.3); eGFR For African Americans > 60 (> 60); eGFR For Non-African Americans 53 (> 60)
[2016-12-18] MEDS: lamoTRIgine 100 MG TABLET PO SCH (08:13)
[2016-12-18] MEDS: Lactulose Oral Soln 20 GM/30 ML UDC PO SCH ×2 (08:13→22:09)
[2016-12-18] MEDS: ARIPiprazole 10 MG TABLET PO SCH (08:13)
[2016-12-18] MEDS: Diltiazem CD (24hr) 180 MG CAPSULE PO SCH (08:13)
[2016-12-18] MEDS ORDERED: Sennosides 8.6 MG TABLET PO SCH (09:00)
[2016-12-18] MEDS ORDERED: Potassium Chloride Elixir 20 MEQ/15 ML UDC PO ONE (09:15)
--- NOTE | 2016-12-18 09:20 | Internal Med Progress Note ---
Date of Encounter: 12/18/16 Time of Encounter: 09:17 - Assessment and plan (1) Acute hepatic encephalopathy Current Visit: Yes Status: Acute Assessment and plan: Related to her cholangiocarcinoma and there ammonia level at [facility] was reported 1:30 which after starting lactulose has been recorded 55 in our facility. Continue monitoring and continue lactulose on a regular basis (2) Dehydration with hyponatremia Current Visit: Yes Status: Acute Assessment and plan: IV fluid started yesterday and sodium has not started improving therefore I will continue IV fluid and monitor sodium and creatinine are at perhaps related to her altered mental status during which she might have poor by mouth intake. 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 A port has been placed therefore I am suspecting her doctors are planning to start chemotherapy soon (4) Atherosclerotic heart disease Current Visit: Yes Status: Acute Assessment and plan: PET scan showed widespread atherosclerotic heart disease and troponins are elevated echocardiogram is pending she is asymptomatic low-dose beta lilo and aspirin can be added Qualifiers: Coronary Disease-Associated Artery/Lesion type: [place] artery [place] vs. transplanted heart: [place] heart Associated angina: without angina Qualified Code(s): I25.10 - Atherosclerotic heart disease of [place] coronary artery without angina pectoris (5) Acute kidney injury Current Visit: Yes Status: Acute Assessment and plan: Elevated creatinine need to be watched daily and closely as this could be just due to dehydration versus hepatic renal syndrome (6) Altered mental status Current Visit: Yes Status: Acute Assessment and plan: Perhaps related to acute hepatic encephalopathy as ammonia level at [facility] was noted 1:30 after which it was treated with lactulose and now it has come down to 55. Monitor clinically daily Qualifiers: Altered mental status type: delirium Qualified Code(s): R41.0 - Disorientation, unspecified (7) DVT prophylaxis Current Visit: No Status: Acute Assessment and plan: Her INR is 1.4 and platelets are normal we plan to put her on low-dose aspirin due to the fact that her troponins are elevated and PET scan showed widespread atherosclerotic disease. SCDs can be added but I think this should be enough prophylaxis. (8) COPD (chronic obstructive pulmonary disease) Current Visit: Yes Status: Chronic Assessment and plan: Nebulizers and monitor oxygen demand daily Qualifiers: COPD type: unspecified COPD Qualified Code(s): J44.9 - Chronic obstructive pulmonary disease, unspecified (9) Depression Current Visit: Yes Status: Chronic Assessment and plan: Continue antidepressants and monitor clinically daily for change Qualifiers: Depression Type: unspecified Qualified Code(s): F32.9 - Major depressive disorder, single episode, unspecified - Subjective Interval history: Mrs. Saba Talamantes is a 66-year-old female who has history of ulcerative colitis and now as per records been diagnosed with intrahepatic mass/ cholangiocarcinoma with a possible lymphatic spread to esophagus. She has a stent in her biliary tree and also hepatic drain. And is interested in chemotherapy and since support has been placed I suspect chemotherapy is planned to be started. In any case she came to our facility with altered mental status while she was at [facility] and they checked her ammonia level which was 1:30 and he started her on lactulose and normal nail level is 55. I suspect altered mental status is secondary to acute hepatic encephalopathy which seems like been treated adequately and need to be continued treating in the same fashion. She seems dehydrated perhaps due to poor by mouth intake during her confusional state at [facility] with low sodium and elevated creatinine and therefore she will be given a fluid challenge to see if her numbers improve. Troponin are elevated and since spread to scan showed widespread atherosclerosis I think we should go ahead and check an echocardiogram to see if she has any cardiac disease. This is especially important because she may go for chemotherapy in which case this infarction could be quite useful for her oncologist. She has COPD and will treat her accordingly. Due to elevated INR the need of anticoagulant is less but since her platelets are okay I do not think it would be a big issue. - Constitutional Vitals: Temp Pulse Resp BP Pulse Ox 97.4 F L 69 15 95/55 94 12/18/16 03:40 12/18/16 03:40 12/18/16 03:40 12/18/16 03:40 12/18/16 03:40 General appearance: Present: A&O X 3 (Patient has some difficulty in answering questions), no acute distress - Head Head exam: Present: atraumatic, normocephalic - Eye Eye exam: Present: PERRL, conjuntiva pink, sclera anicteric Pupils: Present: PERRL - Neck Neck exam general surgery: Present: supple, trachea midline. Absent: lymphadenopathy - Respiratory Respiratory exam: Present: CTAB. Absent: accessory muscle use, rales, rhonchi, wheezes - Cardiovascular Cardiovascular exam: Present: RRR, +S1, +S2. Absent: diastolic murmur, gallop, rubs, systolic murmur - GI/Abdominal GI/Abdominal exam: Present: normal bowel sounds, soft, tenderness, no peritoneal signs. Absent: distended - Extremities Exam Extremities exam: Present: warm, radial pulses palpable and symetrical. Absent : calf tenderness, cyanotic, pedal edema - Neurological Exam Neurological exam: Present: CN II-XII intact, oriented X3, no focal deficits. Absent: pronater drift, facial droop, speech deficit - Skin Skin exam: Present: dry, intact Internal Medicine: Result - Labs CBC & Chem 7: 12/18/16 04:28 12/18/16 04:28 Labs: Short CBC 12/18/16 Range/Units 04:28 WBC 7.7 (4.3-11.1) K/mcL Hgb 9.4 L (11.5-15.4) g/dL Hct 28.1 L (35.3-44.9) % Plt Count 238 (140-400) K/mcL Neutrophils # 5.0 (1.6-8.9) K/mcL BMP 12/18/16 04:28 Sodium 129 L Potassium 3.5 Chloride 94 L Carbon Dioxide 26 BUN 36 H Creatinine 1.04 Glucose 83 Calcium 9.1 Cardiac Enzymes 12/18/16 Range/Units 04:28 Troponin I 0.35 H* (0-0.03) ng/mL Liver Function 12/18/16 Range/Units 04:28 Total Bilirubin 6.4 H (0.2-1.2) mg/dL Direct Bilirubin 5.2 H (0.0-0.5) mg/dL AST 63 H (5-34) Units/L ALT 61 H (0-55) Units/L Alkaline Phosphatase 403 H (38-126) Units/L Albumin 2.2 L (3.5-5.0) g/dL Urine 12/17/16 Range/Units 23:35 Urine Color [place] A (Yellow) Urine Clarity Cloudy A (Clear) Urine pH 6.0 (5.0-8.0) pH Units Ur Specific [place] 1.018 (1.010-1.025) Urine Protein Trace (Neg-Trace) mg/dL Urine Glucose (UA) Normal (Normal) mg/dL - ABG Interpretation ABG results: PT/INR, D-dimer PT 14.8 Seconds (9.4-12.1) H 12/18/16 04:28 - VTE Documentation of Mechanical Device: Intermittent pneumatic compression device Consult Discharge Plan - Plan Referrals: Marybel Head MD [Primary Care Provider] -
[2016-12-18] MEDS: Aspirin Enteric Coated 81 MG Tablet PO SCH (10:08)
[2016-12-18] MEDS ORDERED: 0.9 % Sodium Chloride 1,000 ML ONE (12:03)
[2016-12-18] MEDS: 0.9 % Sodium Chloride 1,000 ML IVC SCH (12:15)
[2016-12-18] MEDS ORDERED: 0.9 % Sodium Chloride 500 ML IVC ONE (15:07)
[2016-12-19] MEDS: 0.9 % Sodium Chloride 1,000 ML IVC SCH ×2 (04:42→14:26)
[2016-12-19] MEDS: Aspirin Enteric Coated 81 MG Tablet PO SCH (10:14)
[2016-12-19] MEDS: ARIPiprazole 10 MG TABLET PO SCH (10:14)
[2016-12-19] MEDS: Diltiazem CD (24hr) 180 MG CAPSULE PO SCH (10:14)
[2016-12-19] MEDS: Lactulose Oral Soln 20 GM/30 ML UDC PO SCH ×2 (10:15→21:47)
[2016-12-19] MEDS: lamoTRIgine 100 MG TABLET PO SCH (10:15)
[2016-12-19] MEDS: clonazePAM 1 MG TABLET PO PRN (10:17)
[2016-12-19 10:18] LABS: Hematocrit 29.2 % (35.3-44.9); Hemoglobin 9.2 g/dL (11.5-15.4); Mean Corpuscular HGB Conc 31.5 g/dL (31.6-35.5); Mean Corpuscular Hemoglobin 30.3 pg (28.0-33.3); Mean Corpuscular Volume 96.1 fL (83.0-100.0); Mean Platelet Volume 9.7 fL (9.4-12.4); Platelet Count 278 K/mcL (140-400); Red Blood Count 3.04 M/mcL (3.82-4.97); Red Cell Distribution Width 14.6 % (11.5-14.5)
[2016-12-19 10:31] LABS: Alanine Aminotransferase 58 Units/L (0-55); Albumin/Globulin Ratio 0.5 (1.1-2.2); Alkaline Phosphatase 402 Units/L (38-126); Aspartate Amino Transferase 67 Units/L (5-34); BUN/Creatinine Ratio 31 (6-26); Bilirubin,Total 5.7 mg/dL (0.2-1.2); Blood Urea Nitrogen 27 mg/dL (7-20); Calcium 8.8 mg/dL (8.6-10.8); Carbon Dioxide 19 mEq/L (19-29); Chloride 105 mEq/L (98-109); Globulin 3.7 g/dL (2.4-3.5); Glucose 94 mg/dL (70-99); Osmolality,Calculated 283 (280-300); Potassium 4.2 mEq/L (3.5-4.5); Sodium 134 mEq/L (136-145); Total Protein 5.7 g/dL (6.0-8.3); eGFR For African Americans > 60 (> 60); eGFR For Non-African Americans > 60 (> 60)
[2016-12-19] MEDS: Nicotine 21 MG PATCH.TD24 TD SCH (12:09)
[2016-12-19] MEDS: *HR* Morphine Sulfate SR (12 HR) 15 MG TABLET.ER PO SCH ×2 (16:08→21:46)
--- NOTE | 2016-12-19 16:34 | Internal Med Progress Note ---
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 transplanted heart: [place] heart Associated angina: without angina Qualified Code(s): I25.10 - Atherosclerotic heart disease of [place] coronary artery without angina pectoris (5) Acute kidney injury Current Visit: Yes Status: Acute (6) Altered mental status Current Visit: Yes Status: Acute Qualifiers: Altered mental status type: delirium Qualified Code(s): R41.0 - Disorientation, unspecified (7) DVT prophylaxis Current Visit: No Status: Acute (8) COPD (chronic obstructive pulmonary disease) Current Visit: Yes Status: Chronic Qualifiers: COPD type: unspecified COPD Qualified Code(s): J44.9 - Chronic obstructive pulmonary disease, unspecified (9) Depression Current Visit: Yes Status: Chronic Qualifiers: Depression Type: unspecified Qualified Code(s): F32.9 - Major depressive disorder, single episode, unspecified - Subjective Interval history: Mrs. Saba Talamantes is a 66-year-old female who has history of ulcerative colitis and now as per records been diagnosed with intrahepatic mass/ cholangiocarcinoma with a possible lymphatic spread to esophagus. She has a stent in her biliary tree and also hepatic drain. And is interested in chemotherapy and since support has been placed I suspect chemotherapy is planned to be started. In any case she came to our facility with altered mental status while she was at [facility] and they checked her ammonia level which was 1:30 and he started her on lactulose and normal nail level is 55. I suspect altered mental status is secondary to acute hepatic encephalopathy which seems like been treated adequately and need to be continued treating in the same fashion. She seems dehydrated perhaps due to poor by mouth intake during her confusional state at [facility] with low sodium and elevated creatinine and therefore she will be given a fluid challenge to see if her numbers improve. Troponin are elevated and since spread to scan showed widespread atherosclerosis I think we should go ahead and check an echocardiogram to see if she has any cardiac disease. This is especially important because she may go for chemotherapy in which case this infarction could be quite useful for her oncologist. She has COPD and will treat her accordingly. Due to elevated INR the need of anticoagulant is less but since her platelets are okay I do not think it would be a big issue. 12/19 agent is awake and alert able to understand my questions and follow commands well. Her electrolyte imbalance has been corrected with IV hydration. Echocardiogram showed cortical ejection fraction above 55% with normal LV systolic function, moderate diastolic dysfunction and no valvular abnormality. Incision was secondary to hepatic Cephalopathy and Combination of Narcotic Medication.. At This Point Have That He Can Cephalopathy Has Resolved and Follow-Up Ammonia Level Has Dropped down. Continue Lactulose. No Cardiac Event. - Constitutional Vitals: Temp Pulse Resp BP Pulse Ox 98.0 F 48 18 91/53 97 12/19/16 16:10 12/19/16 16:10 12/19/16 16:10 12/19/16 16:10 12/19/16 16:10 General appearance: Present: A&O X 3 (Patient has some difficulty in answering questions), no acute distress - Head Head exam: Present: atraumatic, normocephalic - Eye Eye exam: Present: PERRL, conjuntiva pink, sclera anicteric Pupils: Present: PERRL - Neck Neck exam general surgery: Present: supple, trachea midline. Absent: lymphadenopathy - Respiratory Respiratory exam: Present: CTAB. Absent: accessory muscle use, rales, rhonchi, wheezes - Cardiovascular Cardiovascular exam: Present: RRR, +S1, +S2. Absent: diastolic murmur, gallop, rubs, systolic murmur - GI/Abdominal GI/Abdominal exam: Present: normal bowel sounds, soft, no peritoneal signs. Absent: distended, tenderness - Extremities Exam Extremities exam: Present: warm, radial pulses palpable and symetrical. Absent : calf tenderness, cyanotic, pedal edema - Neurological Exam Neurological exam: Present: CN II-XII intact, oriented X3, no focal deficits. Absent: pronater drift, facial droop, speech deficit - Skin Skin exam: Present: dry, intact Internal Medicine: Result - Labs CBC & Chem 7: 12/19/16 10:05 12/19/16 10:05 Labs: Short CBC 12/19/16 Range/Units 10:05 WBC 7.9 (4.3-11.1) K/mcL Hgb 9.2 L (11.5-15.4) g/dL Hct 29.2 L (35.3-44.9) % Plt Count 278 (140-400) K/mcL BMP 12/19/16 10:05 Sodium 134 L Potassium 4.2 Chloride 105 Carbon Dioxide 19 BUN 27 H Creatinine 0.88 Glucose 94 Calcium 8.8 Liver Function 12/19/16 Range/Units 10:05 Total Bilirubin 5.7 H (0.2-1.2) mg/dL AST 67 H (5-34) Units/L ALT 58 H (0-55) Units/L Alkaline Phosphatase 402 H (38-126) Units/L Albumin 2.0 L (3.5-5.0) g/dL - ABG Interpretation ABG results: PT/INR, D-dimer PT 14.8 Seconds (9.4-12.1) H 12/18/16 04:28 - VTE Documentation of Mechanical Device: Intermittent pneumatic compression device Consult Discharge Plan - Plan Referrals: Marybel Head MD [Primary Care Provider] -
[2016-12-20] MEDS: 0.9 % Sodium Chloride 1,000 ML IVC SCH ×3 (00:14→20:17)
[2016-12-20 07:26] LABS: Basophils # 0.1 K/mcL (0.0-0.2); Basophils % 0.7 %; Hematocrit 29.2 % (35.3-44.9); Hemoglobin 9.2 g/dL (11.5-15.4); Immature Granulocytes % 1.9 % (0-4); Lymphocytes # 1.4 K/mcL (0.6-4.6); Lymphocytes % 17.4 %; Mean Corpuscular HGB Conc 31.5 g/dL (31.6-35.5); Mean Corpuscular Hemoglobin 30.3 pg (28.0-33.3); Mean Corpuscular Volume 96.1 fL (83.0-100.0); Mean Platelet Volume 9.5 fL (9.4-12.4); Monocytes # 0.8 K/mcL (0.0-1.3); Monocytes % 9.8 %; Neutrophils # 5.6 K/mcL (1.6-8.9); Platelet Count 279 K/mcL (140-400); Red Blood Count 3.04 M/mcL (3.82-4.97); Red Cell Distribution Width 14.6 % (11.5-14.5); Segmented Neutrophils % 70.2 %
[2016-12-20] MEDS: lamoTRIgine 100 MG TABLET PO SCH (08:18)
[2016-12-20] MEDS: Lactulose Oral Soln 20 GM/30 ML UDC PO SCH ×2 (08:18→20:17)
[2016-12-20] MEDS: ARIPiprazole 10 MG TABLET PO SCH (08:18)
[2016-12-20] MEDS: Diltiazem CD (24hr) 180 MG CAPSULE PO SCH (08:18)
[2016-12-20] MEDS: Aspirin Enteric Coated 81 MG Tablet PO SCH (08:18)
[2016-12-20] MEDS: *HR* Morphine Sulfate SR (12 HR) 15 MG TABLET.ER PO SCH ×2 (08:19→20:17)
[2016-12-20] MEDS: Nicotine 21 MG PATCH.TD24 TD SCH (08:19)
--- NOTE | 2016-12-20 09:46 | Electrocardiograph Report ---
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
[2016-12-20] MEDS: clonazePAM 1 MG TABLET PO PRN (11:38)
--- NOTE | 2016-12-20 17:11 | Internal Med Progress Note ---
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 transplanted heart: teller heart Associated angina: without angina Qualified Code(s): I25.10 - Atherosclerotic heart disease of teller coronary artery without angina pectoris (5) Acute kidney injury Current Visit: Yes Status: Acute (6) Altered mental status Current Visit: Yes Status: Acute Qualifiers: Altered mental status type: delirium Qualified Code(s): R41.0 - Disorientation, unspecified (7) DVT prophylaxis Current Visit: No Status: Acute (8) COPD (chronic obstructive pulmonary disease) Current Visit: Yes Status: Chronic Qualifiers: COPD type: unspecified COPD Qualified Code(s): J44.9 - Chronic obstructive pulmonary disease, unspecified (9) Depression Current Visit: Yes Status: Chronic Qualifiers: Depression Type: unspecified Qualified Code(s): F32.9 - Major depressive disorder, single episode, unspecified - Subjective Interval history: Mrs. Saba Talamantes is a 66-year-old female who has history of ulcerative colitis and now as per records been diagnosed with intrahepatic mass/ cholangiocarcinoma with a possible lymphatic spread to esophagus. She has a stent in her biliary tree and also hepatic drain. And is interested in chemotherapy and since support has been placed I suspect chemotherapy is planned to be started. In any case she came to our facility with altered mental status while she was at custodial and they checked her ammonia level which was 1:30 and he started her on lactulose and normal nail level is 55. I suspect altered mental status is secondary to acute hepatic encephalopathy which seems like been treated adequately and need to be continued treating in the same fashion. She seems dehydrated perhaps due to poor by mouth intake during her confusional state at custodial with low sodium and elevated creatinine and therefore she will be given a fluid challenge to see if her numbers improve. Troponin are elevated and since spread to scan showed widespread atherosclerosis I think we should go ahead and check an echocardiogram to see if she has any cardiac disease. This is especially important because she may go for chemotherapy in which case this infarction could be quite useful for her oncologist. She has COPD and will treat her accordingly. Due to elevated INR the need of anticoagulant is less but since her platelets are okay I do not think it would be a big issue. 12/19 patient is awake and alert able to understand my questions and follow commands well. Her electrolyte imbalance has been corrected with IV hydration. Echocardiogram showed cortical ejection fraction above 55% with normal LV systolic function, moderate diastolic dysfunction and no valvular abnormality. Incision was secondary to hepatic Cephalopathy and Combination of Narcotic Medication.. At This Point Have That He Can Cephalopathy Has Resolved and Follow-Up Ammonia Level Has Dropped down. Continue Lactulose. No Cardiac Event. 12/20 weight try to discharge her but she needs to restart from custodial and group social worker is still working on it. patient is awake and alert able to understand my questions and follow commands well. Her electrolyte imbalance has been corrected with IV hydration. Echocardiogram showed cortical ejection fraction above 55% with normal LV systolic function, moderate diastolic dysfunction and no valvular abnormality. Confusion was secondary to hepatic Cephalopathy and Combination of Narcotic Medication. She is on lactulose and her last one was 42. Her hepatic drain came out therefore interventional radiology was consulted who have put it back and is draining now. As noted above she has a Port-A-Cath and there she will be receiving chemotherapy for her cholangiocarcinoma with him possible lymphatic spread to esophagus. - Constitutional Vitals: Temp Pulse Resp BP Pulse Ox 98.7 F 50 16 98/58 98 12/20/16 15:56 12/20/16 15:56 12/20/16 15:56 12/20/16 15:56 12/20/16 15:56 General appearance: Present: A&O X 3 (Patient has some difficulty in answering questions), no acute distress - Head Head exam: Present: atraumatic, normocephalic - Eye Eye exam: Present: PERRL, conjuntiva pink, sclera anicteric Pupils: Present: PERRL - Neck Neck exam general surgery: Present: supple, trachea midline. Absent: lymphadenopathy - Respiratory Respiratory exam: Present: CTAB. Absent: accessory muscle use, rales, rhonchi, wheezes - Cardiovascular Cardiovascular exam: Present: RRR, +S1, +S2. Absent: diastolic murmur, gallop, rubs, systolic murmur - GI/Abdominal GI/Abdominal exam: Present: normal bowel sounds, soft, no peritoneal signs. Absent: distended, tenderness - Extremities Exam Extremities exam: Present: warm, radial pulses palpable and symetrical. Absent : calf tenderness, cyanotic, pedal edema - Neurological Exam Neurological exam: Present: CN II-XII intact, oriented X3, no focal deficits. Absent: pronater drift, facial droop, speech deficit - Skin Skin exam: Present: dry, intact Internal Medicine: Result - Labs CBC & Chem 7: 12/20/16 07:15 12/19/16 10:05 Labs: Short CBC 12/20/16 Range/Units 07:15 WBC 8.0 (4.3-11.1) K/mcL Hgb 9.2 L (11.5-15.4) g/dL Hct 29.2 L (35.3-44.9) % Plt Count 279 (140-400) K/mcL Neutrophils # 5.6 (1.6-8.9) K/mcL - ABG Interpretation ABG results: PT/INR, D-dimer PT 14.8 Seconds (9.4-12.1) H 12/18/16 04:28 - Impressions Impressions Fluoroscopy 12/20/16 00:00 IMPRESSION: Left internal external biliary drainage catheter in good position D/ / Richard Quinn MD / Richard Quinn MD Interpreting Provider: Richard Quinn MD - VTE Documentation of Mechanical Device: Intermittent pneumatic compression device Consult Discharge Plan - Plan Referrals: Marybel Head MD [Primary Care Provider] -
[2016-12-21 04:43] LABS: Basophils # 0.1 K/mcL (0.0-0.2); Basophils % 0.8 %; Eosinophils % 0.1 %; Hematocrit 29.1 % (35.3-44.9); Hemoglobin 9.4 g/dL (11.5-15.4); Immature Granulocytes % 1.7 % (0-4); Lymphocytes # 1.7 K/mcL (0.6-4.6); Lymphocytes % 18.8 %; Mean Corpuscular HGB Conc 32.3 g/dL (31.6-35.5); Mean Corpuscular Hemoglobin 31.2 pg (28.0-33.3); Mean Corpuscular Volume 96.7 fL (83.0-100.0); Mean Platelet Volume 9.9 fL (9.4-12.4); Monocytes # 0.8 K/mcL (0.0-1.3); Monocytes % 8.9 %; Neutrophils # 6.4 K/mcL (1.6-8.9); Platelet Count 264 K/mcL (140-400); Red Blood Count 3.01 M/mcL (3.82-4.97); Red Cell Distribution Width 14.8 % (11.5-14.5); Segmented Neutrophils % 69.7 %
[2016-12-21 08:30] VITALS: BP 106/64
[2016-12-21] MEDS: Nicotine 21 MG PATCH.TD24 TD SCH (08:37)
[2016-12-21] MEDS: 0.9 % Sodium Chloride 1,000 ML IVC SCH (08:39)
[2016-12-21] MEDS: Lactulose Oral Soln 20 GM/30 ML UDC PO SCH (08:41)
[2016-12-21] MEDS: lamoTRIgine 100 MG TABLET PO SCH (08:42)
[2016-12-21] MEDS: ARIPiprazole 10 MG TABLET PO SCH (08:42)
[2016-12-21] MEDS: Diltiazem CD (24hr) 180 MG CAPSULE PO SCH (08:42)
[2016-12-21] MEDS: Aspirin Enteric Coated 81 MG Tablet PO SCH (08:42)
[2016-12-21] MEDS: *HR* Morphine Sulfate SR (12 HR) 15 MG TABLET.ER PO SCH (09:45)
--- NOTE | 2016-12-21 10:48 | Discharge Summary ---
Date of Encounter: 12/21/16 Time of Encounter: 10:46 - Discharge Diagnosis (1) Acute hepatic encephalopathy Priority: Primary Status: Acute Comments: resolved (2) Acute hyponatremia Priority: Secondary Status: Acute Comments: due to dehydration.. 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 Priority: Secondary Status: Acute (6) Dehydration with hyponatremia Priority: Primary Status: Acute (7) Intrahepatic cholangiocarcinoma Priority: Secondary Status: Suspected Comments: s/p Left internal external biliary catheter - Discharge Medications Home Medications: Buspirone [Buspar] 15 mg PO BID 02/14/15 [History] Diltiazem CD (24hr) [Cardizem CD] 180 mg PO DAILY 08/25/15 [History] ARIPiprazole [Abilify] 10 mg PO DAILY 10/27/16 [History] Duloxetine HCl [Cymbalta] 60 mg PO BID 10/27/16 [History] lamoTRIgine [Lamotrigine] 200 mg PO DAILY 10/28/16 [History] Nicotine Patch [Nicoderm] 21 mg TD DAILY #30 patch.td24 11/19/16 [Rx] Docusate Sodium [Dok] 100 mg PO BID 12/17/16 [History] Lactulose 20 gm PO BID 12/17/16 [History] Sennosides [Senna] 8.6 mg PO DAILY 12/17/16 [History] Aspirin Enteric Coated [Aspirin EC] 81 mg PO DAILY tablet. 12/21/16 [Rx] Morphine Immed Rel [Morphine Sulfate] 15 mg PO Q6H PRN #15 tab 12/21/16 [Rx] Morphine Sulfate [Arymo ER] 15 mg PO Q12H #10 tab.po.er 12/21/16 [Rx] Nicotine Patch [Nicoderm] 21 mg TD DAILY patch.td24 12/21/16 [Rx] Omeprazole [PriLOSEC] 20 mg PO DAILY@0630 capsule. 12/21/16 [Rx] clonazePAM [Klonopin] 1 mg PO TID PRN #10 tablet 12/21/16 [Rx] Allergies/Adverse Reactions: Allergies griseofulvin [From Fulvicin P/G] Allergy (Verified 10/28/16 12:40) Hives acetaminophen [From Percocet] Adverse Reaction (Verified 10/28/16 12:40) Itching Oxycodone [From Percocet] Adverse Reaction (Verified 10/28/16 12:40) Itching Procedures/tests Complete & Pending: Procedures Performed prior 72 hours Category Date Time Status IR fluoroscopy <1hr [IR] Routine IR 12/20/16 Completed Date of admission: 12/17/16 21:27 Primary care physician: Marybel Head Consults: 12/17/16 22:54 Consult to Pastoral Services [CONS] Routine Comment: Consult to Public Accountant [CONS] Routine Reason for SW Consult: patient wishes to get a POA and return [facility] on DC 12/17/16 22:57 Consult to Occupational Therapy [CONS] Routine Comment: Evaluate, develop and implement POC Reason for Consult: Weakness Consult to Physical Therapy [CONS] Routine Comment: Evaluate, develop and implement POC Reason for Consult: Weakness 12/19/16 15:58 Consult to Interventional Radiology [CONS] Routine Consulting Provider: Radiology Interventional Cols Reason for Consult: biliary tube sutures have come out. Please evaluate positioning of drain Call Completed: No - Patient Status Disposition: Transfer SNF Condition: Serious Overall status at discharge: patient is back to baseline - Discharge Instructions Follow Up With: Marybel Head MD [Primary Care Provider] - - Diet and Activity Activity: as per physical therapy Diet: advance to your usual diet Hospital course: Ms. 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 Pt also happened to have severe hyponatremia and JOSE DE JESUS due to dehydration. With gentle IV hydration her JOSE DE JESUS and hyponatremia resolved. Pt was placed on more frequent lactulose and her ammonia levels started trending down. Her mentation also improved, now almost at her baseline. Also did fluoroscopy to assess the biliary catheter position, which seems to be working properly, no obstructions noticed. Will d/c her back to SNF in stable condition today - Time Spent with Patient Total time spent providing and/or coordinating discharge services: Greater than 30 minutes - Constitutional Vitals: Temp Pulse Resp BP Pulse Ox 98.7 F 59 18 106/64 98 12/21/16 08:25 12/21/16 08:25 12/21/16 08:25 12/21/16 08:25 12/21/16 08:25 General appearance: Present: A&O X 3, no acute distress - Head Head exam: Present: atraumatic, normal inspection, normocephalic - Respiratory Respiratory exam: Present: decreased breath sounds, CTAB. Absent: rales, respiratory distress, wheezes - Cardiovascular Cardiovascular exam: Present: RRR, +S1, +S2 - GI/Abdominal GI/Abdominal exam: Present: soft. Absent: distended, guarding, rebound, rigid, tenderness Additional comments: Biliary catheter + - Back Exam Back exam: Absent: CVA tenderness (L), CVA tenderness (R), tenderness - Skin Skin exam: Present: intact. Absent: rash - VTE Documentation of Mechanical Device: Intermittent pneumatic compression device
--- NOTE | 2016-12-21 11:17 | Physician Discharge Referral ---
ExtendedCare Referral Info Transfer To: SNF Provider in Charge after Transfer: PCP Institutional Level of Care: Skilled (Please continue the same care she was getting before. The only medication we changed, Morphine IR 15mg to Q6hr PRN. Also recommend to continue using Lactulose 20gm BID PRN until she gets 2 soft BMs / day. Use 10cc NS flushes TID for Left internal external biliary cathter. 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 Status: Acute (6) Dehydration with hyponatremia Status: Acute (7) Intrahepatic cholangiocarcinoma Status: Suspected - Transfer Medications Prescriptions: clonazePAM [Klonopin] 1 mg PO TID PRN #10 tablet PRN Reason: Anxiety Morphine Immed Rel [Morphine Sulfate] 15 mg PO Q6H PRN #15 tab PRN Reason: Pain Morphine Sulfate [Arymo ER] 15 mg PO Q12H #10 tab.po.er Home Medications: Buspirone [Buspar] 15 mg PO BID 02/14/15 [History] Diltiazem CD (24hr) [Cardizem CD] 180 mg PO DAILY 08/25/15 [History] ARIPiprazole [Abilify] 10 mg PO DAILY 10/27/16 [History] Duloxetine HCl [Cymbalta] 60 mg PO BID 10/27/16 [History] lamoTRIgine [Lamotrigine] 200 mg PO DAILY 10/28/16 [History] Nicotine Patch [Nicoderm] 21 mg TD DAILY #30 patch.td24 11/19/16 [Rx] Docusate Sodium [Dok] 100 mg PO BID 12/17/16 [History] Lactulose 20 gm PO BID 12/17/16 [History] Sennosides [Senna] 8.6 mg PO DAILY 12/17/16 [History] Aspirin Enteric Coated [Aspirin EC] 81 mg PO DAILY tablet. 12/21/16 [Rx] Morphine Immed Rel [Morphine Sulfate] 15 mg PO Q6H PRN #15 tab 12/21/16 [Rx] Morphine Sulfate [Arymo ER] 15 mg PO Q12H #10 tab.po.er 12/21/16 [Rx] Nicotine Patch [Nicoderm] 21 mg TD DAILY patch.td24 12/21/16 [Rx] Omeprazole [PriLOSEC] 20 mg PO DAILY@0630 capsule. 12/21/16 [Rx] clonazePAM [Klonopin] 1 mg PO TID PRN #10 tablet 12/21/16 [Rx] Allergies/Adverse Reactions: Allergies griseofulvin [From Fulvicin P/G] Allergy (Verified 10/28/16 12:40) Hives acetaminophen [From Percocet] Adverse Reaction (Verified 10/28/16 12:40) Itching Oxycodone [From Percocet] Adverse Reaction (Verified 10/28/16 12:40) Itching - Respiratory Orders Smoking Cessation: Smoking cessation has been advised. For more information, call the [place] Tobacco Quit Line at 7-026-COCWNOW. CERTIFICATION: I certify that the transfer of the above named patient to an Extended Care Facility is necessary for the continuing treatment of the diagnosis listed. The above information is true and accurate reflection of patient's current condition. Confidential - Redisclosure prohibited without a patient's written consent.
== END 2016-12-21 13:27 | DRG 281 ==
LOC: 2NNU 19:12 → EMEROO 19:12 → 2NNU 21:35 → 3ANU 12-20 17:57
PROVIDERS: ADMIT Internal Medicine Endocrinology, Diabetes & Metabolism; ATTEND Internal Medicine

== ENCOUNTER 2017-01-06 01:52 | Inpatient (IN) ==
--- NOTE | 2017-01-06 02:05 | Internal Med History&Physical ---
<BusbyAj - Last Filed: 01/06/17 02:45> Date of Encounter: 01/06/17 Time of Encounter: 02:01 Assessment and Plan (1) Hepatic encephalopathy Current visit: Yes Status: Resolved Likely secondary to mass effect from cholangiocarcinoma; patient already has biliary stent in place Consult oncology as patient has previously seen Dr. Mcdonnell Start on Zosyn and Lactulose 20 mg BID for goal bowel movements of 3 per day; trend ammonia levels KUB to verify placement of NGT for administration of Lactulose Support while NPO with IVF, anti-emetics and analgesics Consult social service liaison and palliative care as prognosis is poor and she would benefit from in depth discussion with her family on goals of care (2) Acute kidney injury Current visit: No Status: Acute Cr of 1.66 upon admission likely pre-renal in setting of dehydration No evidence of CKD on documentation Will administer maintenance fluids and avoid nephrotoxic agents (3) Intrahepatic cholangiocarcinoma Current visit: No Status: Chronic Consult oncology, appreciate recommendations Patient currently has biliary drainage in place and port in right chest; unsure if on chemo presently (4) Obstructive jaundice Current visit: Yes Status: Acute Plan as above for hepatic encephalopathy (5) COPD (chronic obstructive pulmonary disease) Current visit: No Status: Chronic Not clinically in exacerbation Will support with oxygen and breathing treatments as needed Qualifiers: COPD type: unspecified COPD Qualified Code(s): J44.9 - Chronic obstructive pulmonary disease, unspecified (6) DVT prophylaxis Current visit: No Status: Acute Heparin 5000 units BID Internal Medicine - H&P: HPI Chief complaint: AMS Admitted From: Intrahospital Transfer Plans for Post Hospital Care: Transfer [facility] History of present illness: Ms. Talamantes is a 66 year old female who is transferred from [place] for abdominal pain and altered mental status. Patient is a poor historian and is confused at this time, and there is no family at bedside. According to ER documentation, patient presented to the ED in the morning yesterday after sustaining a fall. Multiple images were done and showed no acute fracture and patient was sent back to her nursing facility. Of note, patient does have a history of cholangiocarcinoma which required a percutaneous drain that was recently changed , as the left side currently clamped while she has a newer on in the right upper quadrant which is draining fluid. According to notes, patient had been aggressive about her treatment and has a port in the right chest for chemotherapy. The nurse states that patient is on lactulose and the NG tube has been placed for administration of it. Past Med Surg Social Fam HX - Past Medical History Medical history: arthritis, cancer, COPD, hyperlipidemia, hypertension, liver disease, valvular heart disease, other Psychiatric history: anxiety, bipolar, depression - Past Surgical History Surgical History: appendectomy, knee replacement, orthopedic, other, other - Social History Smoking Status: Current every day smoker Smokeless Tobacco Status: No Alcohol use: none Drug use: none - Family History Brother Living Status: Hx Family Cancer: Yes (Colon cancer) Mother Adopted: No Living Status: Still Living Hx Family Endocrine Disorder: Yes (DM) Internal Medicine - H&P: Meds Buspirone [Buspar] 15 mg PO BID 02/14/15 [History] Diltiazem CD (24hr) [Cardizem CD] 180 mg PO DAILY 08/25/15 [History] ARIPiprazole [Abilify] 10 mg PO DAILY 10/27/16 [History] Duloxetine HCl [Cymbalta] 60 mg PO BID 10/27/16 [History] lamoTRIgine [Lamotrigine] 200 mg PO DAILY 10/28/16 [History] Docusate Sodium [Dok] 100 mg PO BID 12/17/16 [History] Sennosides [Senna] 8.6 mg PO DAILY 12/17/16 [History] clonazePAM [Klonopin] 1 mg PO TID PRN #10 tablet 12/21/16 [Rx] Nicotine Patch [Nicoderm] 14 mg TD DAILY 12/29/16 [History] Morphine Immed Rel [Morphine Sulfate] 15 mg PO Q6H PRN 12/30/16 [History] Morphine Sulfate [Arymo ER] 15 mg PO Q12H PRN 12/30/16 [History] Allergies No Known Allergies Allergy (Verified 01/05/17 10:34) ROS unobtainable: due to mental status All Systems PM: A 10-system review of systems was performed and is negative for pertinent findings except as documented above in the HPI. - Head Additional comments: bruises noted above eyes, right side covered with steri strips from ED visit earlier at [place] - Eye Eye exam: Present: PERRL - Neck Neck exam general surgery: Present: supple, trachea midline. Absent: lymphadenopathy - Respiratory Respiratory exam: Present: CTAB. Absent: accessory muscle use, rales, rhonchi, wheezes - Cardiovascular Cardiovascular exam: Present: RRR, +S1, +S2. Absent: diastolic murmur, gallop, rubs, systolic murmur - GI/Abdominal GI/Abdominal exam: Present: normal bowel sounds, soft, no peritoneal signs. Absent: distended, tenderness - Extremities Exam Extremities exam: Present: warm, radial pulses palpable and symetrical. Absent : calf tenderness, cyanotic, pedal edema - Neurological Exam Neurological exam: Present: altered (but does respond appropriately to commands) , no focal deficits, speech deficit. Absent: oriented X3, facial droop - Skin Skin exam: Absent: normal color (jaundiced) <Sachin Caal - Last Filed: 01/06/17 03:07> Date of Encounter: 01/06/17 Internal Medicine - H&P: HPI History of present illness: Ms. Talamantes is a 66 year old female All Systems PM: A 10-system review of systems was performed and is negative for pertinent findings except as documented above in the HPI. - Attending Attestation I examined this patient and my medical decision-making was reviewed with the Resident Physician. I agree with the documented findings, disposition and treatment plan as described except to the extent set forth below. Ms. Saba Talamantes is a 66-year-old female who had recently been diagnosed with locally advanced cholangiocarcinoma under the care of oncology since around September 2016. She presents from her halfway with worsening confusion and reported history of falls and was evaluated at a local ed and had completed a trauma screening with CT C-spine, bilateral hip x-ray, CT head and chest x- ray that was within normal limits other than a small frontal soft tissue contusion. However she was found to be hyperbilirubinemic with that T bili of greater than 12 with elevated ammonia. Subsequent CT abdomen and pelvis re- demonstrated metastatic cholangiocarcinoma with liver involvement. It appears that her most recent medical issues have been related to her progressive locally advanced metastatic cholangiocarcinoma. She had seen oncology locally and had also received consultation at [facility] where she was felt not to be a candidate for aggressive therapy. Her disease course has been complicated by biliary obstruction and cholangitis. To palliative her symptoms she had biliary drainage and recently had a cholecystostomy tube placement by IR on 03 January 2017. Objectively on labs she was noted to have a T bili of 12.5 creatinine of 1.66 sodium of 134 and a WBC count of 16.5. ROS: 14 point review of systems reviewed. Pertinent positive or negative as per HPI or otherwise reviewed as negative General -decreased mental status Eyes - MARISOL. Scleral icterus ENT - Oral mucosa pink, dentition intact. External ear clear/dry/intact. No thyromegaly Neuro -neuro examination difficult given confusion Heart - Sinus. RRR. S1 and S2 present. No added HS/murmurs appreciated. No elevated JVD appreciated. No calf swellings/erythema Lung -decreased air entry bilaterally, bibasilar crackles no wheeze GI - Soft, guarding or rigidity. Drain present. No splenomegaly or overt hepatomegaly appreciated BS+ - No CVA/suprapubic tenderness or palpable bladder distension Skin - Intact. No rash/petechiae/ecchymosis. Warm extremities MSK - Joints with normal ROM. No joint swellings A/P Obstructive jaundice 2/2 metastatic cholangiocarcinoma Possible cholangitis unable to rule out Hepatic encephalopathy Hyponatremia - IV Zosyn, IV antibiotics - Trend bilirubin hepatic function panel, lactulose due to NG tube titrate to 3- 4 bowel movements daily - Consult oncology for further management, strongly consider palliative consult and goals of care discussion with family and patient if able Chronic medical issues Depression Anxiety Tobacco abuse
[2017-01-06] MEDS ORDERED: *HR* Promethazine 25 MG/ML VIAL IVP PRN (02:30)
[2017-01-06] MEDS ORDERED: Naloxone 0.4 MG/ML INJ IVP PRN (02:30)
[2017-01-06] MEDS ORDERED: *HR* Morphine 2 MG/ML SYRINGE IVP PRN (02:30)
[2017-01-06] MEDS ORDERED: Ipratropium/Albuterol Neb 3 ML IH PRN (02:52)
[2017-01-06] MEDS: 0.9 % Sodium Chloride 1,000 ML IVC SCH ×3 (04:05→22:47)
[2017-01-06 04:57] LABS: Hematocrit 28.2 % (35.3-44.9); Hemoglobin 9.6 g/dL (11.5-15.4); Mean Platelet Volume 11.1 fL (9.4-12.4); Platelet Count 211 K/mcL (140-400); Red Cell Distribution Width 18.1 % (11.5-14.5)
[2017-01-06 05:19] LABS: Albumin/Globulin Ratio 0.4 (1.1-2.2); Calcium 8.3 mg/dL (8.6-10.8); Potassium 3.5 mEq/L (3.5-4.5); Total Protein 5.7 g/dL (6.0-8.3)
[2017-01-06 05:22] LABS: Albumin 1.7 g/dL (3.5-5.0); Bilirubin,Total 11.7 mg/dL (0.2-1.2)
[2017-01-06] MEDS: Pantoprazole 40 MG VIAL IVP SCH (06:42)
[2017-01-06] MEDS: *HR* Heparin 5,000 UNIT/ML VIAL SQ SCH ×2 (06:42→16:58)
[2017-01-06] MEDS ORDERED: Lactulose Oral Soln 20 GM/30 ML UDC PO SCH (09:00)
[2017-01-06] MEDS: Piperacillin/Tazobactam 3.375 GM in D5% in Water (Mini-Bag+) 100 ML IVPB SCH ×3 (09:45→23:54)
--- NOTE | 2017-01-06 10:10 | Event Note ---
Date of Encounter: 01/06/17 Time of Encounter: 09:45 Patient is a 66y/o female with metastatic cholangiocarcinoma who is admitted from [facility] for management of abdominal pain and altered mental status. Pt is seen and examined at bedside. She remains confused, lethargic. She is arousable but not able to participate in converstaion. She is currently started on IV abx for concern for cholangitis in addition to hepatic encephalopathy. She is on lactulose, iv abx. She currently has a biliary drain in place. As per oncology records, patient has an nonoperative illness and palliative chemotherapy is recommended. Pt's clinical status has not been stable to initiate the palliative chemotherapy. She is ill appearing and severely lethargic. oncology consultation and palliative care consultation requested to establish goals of care and code status.
--- NOTE | 2017-01-06 11:32 | Palliative - Consult Note ---
Date of Encounter: 01/06/17 Time of Encounter: 10:30 - Assessment and Plan (1) Goals of care, counseling/discussion Current Visit: Yes Status: Acute Assessment and plan: Daughter Cinthia arrived. POA and Advanced directives reviewed and verified. Conducted long meeting about patients admission details and POC. Sister Zahra unable to attend due to automotive problems but Cinthia reports that she understands mothers condition. Reviewed labs, diagnostics and recent Oncology notes. I explained that patient is ill with continued admissions and poor progress with getting to start palliative chemotherapy. I explained relationship of ammonia and elevated liver enzymes to altered mental status. I explained that the patient is fragile and overall liver failure severely impacts patients ability to tolerate some medications. I explained Code status and that CPR and advanced life support treatments could be more hurtful to the patient than helpful. I reviewed DNRCC-A, DNRCC-A, DNI and DNRCC - Comfort Care definitions and explained what treatments would be given based on each status. The patient is lethargic and unable to participate in conversation at this time. Cinthia made the decision to transition patient to DNRCC-A, DNI. She doesn't desire vasopressor support either. Dr. Gardiner attended some of the meeting and further explained the patients POC and need for antibiotics and lactulose. I further discussed that if she so desired that the patient fully meets criteria for hospice care. I explained hospice and discussed the focus on comfort care and quality of life. The patient is newly diagnosed and this has been extremely difficult for her and her sister. I provided support and reassurance that the healthcare providers were here to support her. She agreed to give her mother a few days to improve, if she fails to improve we will revisit the POC and further discuss hospice care as an alternative. The patient has been bed bound and unable to walk at the [facility]. Cinthia is employed at the [facility] that her mother lives in. We discussed spiritual care and the patient is of Hoahaoism isabela and desires to saved. I discussed with Dmitri Montague our Budget Controller and he will see the patient and provide support for being saved once the patient is alert. Bedside prayer was provided. We will continue to follow the patients progress and provide daily family support. (2) Cancer associated pain Current Visit: Yes Status: Acute Assessment and plan: Patient lethargic and unable to respond to specific pain assessment questions. She moans and has facial grimace with abdominal assessment. Patient has morphine PRN and discussed with nursing staff the need to facilitate comfort with facial grimace and moaning. ECF transfer forms reviewed and patient was on PO pain meds. Currently NPO and will adjust dose for comfort. Position for comfort. (3) Obstructive jaundice Current Visit: Yes Status: Acute Assessment and plan: Patient with Biliary drain tubes. Draining dark yellow drainage. Current Biliary level 11.7. (4) Acute hepatic encephalopathy Current Visit: No Status: Acute Assessment and plan: Ammonia level 65. Patient receiving lactulose and having BMs. 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 Talamantes is a 66 year old female, who was diagnosed in Oct, 2016 with Intra hepatic cholangiocarcinoma. The patient was admitted from [facility] with abdominal pain and lethargic mental status. History includes Ulcerative colitis, COPD, Bipolar, depression, nicotine abuse, HTN. Case discussed with Dr. Gardiner and all labs, diagnostics, and medical record information was reviewed. This palliative care consult is for goals of care discussion. Upon this consult, the patient has altered MS and is unable to provide any significant health history. I called her daughter/SANDY Vicente and she is in route to the hospital. The patient was evaluated by Dr. Mojgan Dhillon Oncologist at [facility] and was found to have unresectable disease with the recommendation for palliative chemotherapy. The patient opted for treatment at the [facility]. Oncology note reviewed and noted that the patient was recently seen by Dr. Melendez (12/29/16) and Dr. Byrnes, Radiation Oncologist. The patient was to start palliative chemotherapy but has not been stable enough to begin. The patient is also having radiation to the liver for obstructive jaundice. Goals of care discussion with daughter/SANDY Vicente upon her arrival. CC: Alannah Gardiner MD Past Med Surg Social Fam HX - Past Medical History Source: old records reviewed, obtained from family Medical history: arthritis, cancer, COPD, hyperlipidemia, hypertension, liver disease, other Psychiatric history: anxiety, bipolar, depression - Past Surgical History Surgical History: appendectomy, knee replacement, orthopedic, other, other - Social History Smoking Status: Current every day smoker Smokeless Tobacco Status: No Alcohol use: none Drug use: none Occupational status: unemployed Current living situation: [facility] Activity Level: Bed bound Recent Out of Country Travel Within the Last 8 Weeks: No Exposure or Possible Exposure to Illness During Travel: No - Family History Brother Living Status: Hx Family Cancer: Yes (Colon cancer) Mother Adopted: No Living Status: Still Living Hx Family Endocrine Disorder: Yes (DM) Medications and Allergies Buspirone [Buspar] 15 mg PO BID 02/14/15 [History] Diltiazem CD (24hr) [Cardizem CD] 180 mg PO DAILY 08/25/15 [History] ARIPiprazole [Abilify] 10 mg PO DAILY 10/27/16 [History] Duloxetine HCl [Cymbalta] 60 mg PO BID 10/27/16 [History] lamoTRIgine [Lamotrigine] 200 mg PO DAILY 10/28/16 [History] Docusate Sodium [Dok] 100 mg PO BID 12/17/16 [History] Sennosides [Senna] 8.6 mg PO DAILY 12/17/16 [History] clonazePAM [Klonopin] 1 mg PO TID PRN #10 tablet 12/21/16 [Rx] Nicotine Patch [Nicoderm] 14 mg TD DAILY 12/29/16 [History] Morphine Immed Rel [Morphine Sulfate] 15 mg PO Q6H PRN 12/30/16 [History] Morphine Sulfate [Arymo ER] 15 mg PO Q12H PRN 12/30/16 [History] Albuterol Sulfate [Ventolin Hfa] 2 puff IH Q4H PRN 01/06/17 [History] Aspirin [Lo-Dose Aspirin EC] 81 mg PO DAILY 01/06/17 [History] Lactulose 20 gm PO QID 01/06/17 [History] Omeprazole [PriLOSEC] 20 mg PO DAILY 01/06/17 [History] Allergies acetaminophen [From Percocet] Allergy (Verified 01/06/17 12:07) Itching Oxycodone [From Percocet] Allergy (Verified 01/06/17 12:07) Itching ROS unobtainable: due to mental status (patient lethagic) - Constitutional Constitutional ROS PAL: fatigue, lethargy - EENT Eyes: requires corrective lenses - Respiratory Respiratory: dyspnea on exertion - Gastrointestinal Gastrointestinal: nausea - Musculoskeletal Musculoskeletal ROS IM: muscle weakness - Integumentary ROS Integumentary: jaundice - Neurological Neurological ROS: lack of coordination - Psychiatric Psychiatric general PM: depression Palliative Care-Exam - Constitutional Vitals: Temp Pulse Resp BP Pulse Ox 99.4 F 85 20 110/70 95 01/06/17 11:00 01/06/17 11:00 01/06/17 11:00 01/06/17 11:00 01/06/17 07:39 General appearance: Present: no acute distress - Head Head Exam: Present: atraumatic, normal inspection, normocephalic - Eye Eye exam: Present: PERRL - ENT ENT exam: Present: mucous membranes moist - Expanded ENT Exam Mouth Exam: Present: moist - Neck Neck exam: Present: tenderness - Expanded Neck Exam Neck exam: Present: midline deformity - Respiratory Respiratory exam: Present: decreased breath sounds - Expanded Respiratory Exam Location: decreased breath sounds: Left, Right, Lower - Cardiovascular Cardiovascular exam: Present: RRR, +S1, +S2 - Expanded Cardiovascular Exam Peripheral pulses: 1+: Femoral (L) PM, Femoral (R) PM, Posterior Tibialis (L), Posterior Tibialis (R), 2+: Carotid (L) PM, Carotid (R) PM, Radial (L), Radial ( R), Dorsalis Pedis (L) PM, Dorsalis Pedis (R) PM - GI/Abdominal Exam GI/Abdominal exam: Present: distended, normal bowel sounds, soft additional comments: Upper abdomen T-Tube - draining dark yellow drainage Lower right quadrant T-tube draining dark yellow drainage NG tube to right nare - scant green drainage - Expanded GI/Abdominal Exam GI/Abdominal exam: Present: ascites - Rectal Rectal exam: Present: deferred - Catheter Type: Urethral (Culp) - Expanded Lower Extremities Exam Upper Leg exam: Present: full ROM Lower Leg exam: Present: full ROM - Neurological Exam Neurological exam: Present: altered - Expanded Neurological Exam Coma Scale Eye Opening: To Pain Coma Scale Motor Response: Localizes to Pain Coma Scale Verbal Response: Confused Coma Scale Total: 11 - Psychiatric Psychiatric exam: Present: flat affect Internal Medicine - CN: Reslt - Labs CBC & Chem 7: 01/06/17 04:30 01/06/17 04:30 Labs: Short CBC 01/06/17 Range/Units 04:30 WBC 12.7 H (4.3-11.1) K/mcL Hgb 9.6 L (11.5-15.4) g/dL Hct 28.2 L (35.3-44.9) % Plt Count 211 (140-400) K/mcL BMP 01/06/17 04:30 Sodium 135 L Potassium 3.5 Chloride 103 Carbon Dioxide 22 BUN 47 H Creatinine 1.53 H Glucose 98 Calcium 8.3 L Liver Function 01/06/17 Range/Units 04:30 Total Bilirubin 11.7 H (0.2-1.2) mg/dL AST 84 H (5-34) Units/L ALT 73 H (0-55) Units/L Alkaline Phosphatase 398 H (38-126) Units/L Albumin 1.7 L (3.5-5.0) g/dL - Impressions Impressions KUB X-Ray 01/06/17 02:32 IMPRESSION: Enteric tube in good position in the stomach. D/ / Chaz Cabral MD / Chaz Cabral MD Interpreting Provider: Chaz Cabral MD Consult Discharge Plan - Plan Referrals: NO,PCP [Primary Care Provider] - Palliative Quality Palliative Quality: Screen for Code Status: Yes, Screen for Goals of Care: Yes, Screen for Pain: Yes, If Pain Regimen Started, Initiate Bowel Regimen: Yes, Screen for Nausea/Vomitting: Yes Code Status: 01/06/17 02:30 Resuscitation Status: Active [RES] Routine Comment: Resuscitation Status: Full Code
[2017-01-06] MEDS: Ipratropium/Albuterol Neb 3 ML IH SCH ×4 (11:35→23:41)
[2017-01-06] MEDS: Diltiazem CD (24hr) 180 MG CAPSULE PO SCH (13:15)
[2017-01-06] MEDS: Lactulose Oral Soln 20 GM/30 ML UDC PO SCH ×3 (13:15→20:04)
--- NOTE | 2017-01-06 16:40 | Rad Onc Dictation ---
Radiation Oncology Dictation Date of Service: 01/06/17 - Progress Note Comments: Patient seen in hospital room with numerous family members at bed side including daughter. She was seen last week in consultation. At that time, given her poor performance status, amrita metastases, persistent hyperbilirubinemia despite PTC, and hepatic encephalopathy, I felt palliative care was most appropriate. We however discussed that there was a potential for improvement in biliary obstruction with palliative radiotherapy. Patient and daughter elected to proceed with radiotherapy which was scheduled to start yesterday. In the interim she had a second PTC placed. Despite this, her bilirubin has increase from 6.1 to now 11.7 in the setting of elevated WBC. She is on antibiotics. She remains encephalopathic. I again reviewed with her daughter and now the rest of her family the end stage nature of her disease. They remain optimistic that she will improve on antibiotics if her current downturn is secondary to cholangitis. While this is possible, I think it is unlikely. Will hold off on any radiotherapy. If she should improve, this could be reconsidered. Will continue to follow along. Appreciate palliative care input. Rodrick Byrnes MD Radiation Oncology [phone]
[2017-01-06] MEDS: *HR* Morphine 2 MG/ML SYRINGE IVP PRN ×2 (16:58→18:53)
[2017-01-06] MEDS: clonazePAM 1 MG TABLET PO PRN (18:53)
[2017-01-07] MEDS: *HR* Morphine 2 MG/ML SYRINGE IVP PRN ×2 (01:13→09:21)
[2017-01-07] MEDS: Ipratropium/Albuterol Neb 3 ML IH SCH ×6 (04:34→23:04)
[2017-01-07 05:24] LABS: Basophils # 0.1 K/mcL (0.0-0.2); Basophils % 0.6 %; Eosinophils % 0.1 %; Hematocrit 28.9 % (35.3-44.9); Hemoglobin 9.6 g/dL (11.5-15.4); Immature Granulocytes % 4.1 % (0-4); Lymphocytes # 1.4 K/mcL (0.6-4.6); Lymphocytes % 10.8 %; Mean Corpuscular HGB Conc 33.2 g/dL (31.6-35.5); Mean Corpuscular Hemoglobin 30.3 pg (28.0-33.3); Mean Corpuscular Volume 91.2 fL (83.0-100.0); Mean Platelet Volume 11.1 fL (9.4-12.4); Monocytes % 7.8 %; Nucleated Red Blood Cells 0.2 /100 WBC (0); Platelet Count 234 K/mcL (140-400); Red Blood Count 3.17 M/mcL (3.82-4.97); Red Cell Distribution Width 18.4 % (11.5-14.5); Segmented Neutrophils % 76.6 %
[2017-01-07 05:44] LABS: Calcium 8.5 mg/dL (8.6-10.8); Magnesium 2.1 mg/dL (1.6-2.6); Phosphorous 3.8 mg/dL (2.3-4.7); Potassium 3.1 mEq/L (3.5-4.5)
[2017-01-07] MEDS: Pantoprazole 40 MG VIAL IVP SCH (06:21)
[2017-01-07] MEDS: *HR* Heparin 5,000 UNIT/ML VIAL SQ SCH ×2 (06:21→18:09)
[2017-01-07] MEDS ORDERED: Potassium Chloride 40 MEQ, Lidocaine 1% 2 ML in D5% in Water 500 ML IVPB ONE (07:21)
--- NOTE | 2017-01-07 09:14 | Palliative Progress Note ---
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 However she has not used any for nausea medication at all. I will encourage her to use it. She also has an obstructive jaundice with biliary drain tubes in place. There continuing to drain. (3) Obstructive jaundice Current Visit: Yes Status: Acute Assessment and plan: No new bilirubin back yet at this time. Bilirubin yesterday is 11.7. Patient does have biliary drain tubes in and these are draining. (4) Goals of care, counseling/discussion Current Visit: Yes Status: Acute Assessment and plan: Patient and patient's medical power of cushion mat maker had a long discussion with nurse practitioner yesterday. Plan is for the patient to remain DNR CCA, DNI for the weekend and see how she does with treatment. Family were not interested in hospice initially, however if the patient fails treatment they may be an may have more questions after giving the patient a couple of days to see how they do. We will continue to follow. - Time Spent With Patient Total time spent is greater than 50% in coordination of care (as documented) at patient's floor/unit and/or counseling patient: - Subjective Interval history: No family present, patient states pain is under reasonable control but she is feeling very nauseated. Educations do not seem to be working as well as her pain medication. - Constitutional Vitals: Abnormal lab results WBC 13.0 K/mcL (4.3-11.1) H 01/07/17 04:30 RBC 3.17 M/mcL (3.82-4.97) L 01/07/17 04:30 Hgb 9.6 g/dL (11.5-15.4) L 01/07/17 04:30 Hct 28.9 % (35.3-44.9) L 01/07/17 04:30 RDW 18.4 % (11.5-14.5) H 01/07/17 04:30 Immature Gran % 4.1 % (0-4) H 01/07/17 04:30 Neutrophils # 10.0 K/mcL (1.6-8.9) H 01/07/17 04:30 Nucleated RBCs/100 WBC 0.2 /100 WBC (0) H 01/07/17 04:30 Potassium 3.1 mEq/L (3.5-4.5) L 01/07/17 04:30 BUN 37 mg/dL (7-20) H D 01/07/17 04:30 Creatinine 1.15 mg/dL (0.57-1.11) H 01/07/17 04:30 Est GFR ( Amer) 58 (> 60) L 01/07/17 04:30 Est GFR (Non-Af Amer) 48 (> 60) L 01/07/17 04:30 BUN/Creatinine Ratio 32 (6-26) H 01/07/17 04:30 Calcium 8.5 mg/dL (8.6-10.8) L 01/07/17 04:30 Total Bilirubin 11.7 mg/dL (0.2-1.2) H 01/06/17 04:30 AST 84 Units/L (5-34) H 01/06/17 04:30 ALT 73 Units/L (0-55) H 01/06/17 04:30 Alkaline Phosphatase 398 Units/L (38-126) H 01/06/17 04:30 Serum Total Protein 5.7 g/dL (6.0-8.3) L 01/06/17 04:30 Albumin 1.7 g/dL (3.5-5.0) L 01/06/17 04:30 Globulin 4.0 g/dL (2.4-3.5) H 01/06/17 04:30 Albumin/Globulin Ratio 0.4 (1.1-2.2) L 01/06/17 04:30 General appearance: Present: no acute distress - Head Head exam: Present: atraumatic, normal inspection - Eye Eye exam: Present: normal appearance, scleral icterus - ENT ENT exam: Present: mucous membranes moist - Respiratory Respiratory exam: Present: decreased breath sounds - Cardiovascular Cardiovascular exam: Present: RRR - GI/Abdominal GI/Abdominal exam: Present: normal bowel sounds, soft, tenderness - Extremities Exam Extremities exam: Present: normal inspection. Absent: pedal edema, tenderness - Neurological Exam Neurological exam: Present: alert - Psychiatric Psychiatric exam: Absent: agitated, anxious - Skin Skin exam: Present: dry, warm (Jaundice is evident) Palliative Quality Palliative Quality: Screen for Code Status: Yes, Screen for Goals of Care: Yes, Screen for Pain: Yes, If Pain Regimen Started, Initiate Bowel Regimen: Yes, Screen for Nausea/Vomitting: Yes Code Status: 01/06/17 02:30 Resuscitation Status: Active [RES] Routine Comment: Resuscitation Status: Full Code 01/06/17 11:39 DNR [Resuscitation Status: Active] [RES] Routine Comment: NO vasopressors Resuscitation Status: [id number] - Labs CBC & Chem 7: 01/07/17 04:30 01/07/17 04:30 Labs: Laboratory Results - last 24 hr 01/07/17 01/07/17 04:30 04:30 WBC 13.0 H RBC 3.17 L Hgb 9.6 L Hct 28.9 L MCV 91.2 MCH 30.3 MCHC 33.2 RDW 18.4 H Plt Count 234 MPV 11.1 Immature Gran % 4.1 H Seg Neutrophils % 76.6 Lymphocytes % 10.8 Monocytes % 7.8 Eosinophils % 0.1 Basophils % 0.6 Neutrophils # 10.0 H Lymphocytes # 1.4 Monocytes # 1.0 Eosinophils # 0.0 Basophils # 0.1 Nucleated RBCs/100 WBC 0.2 H Sodium 140 Potassium 3.1 L Chloride 107 Carbon Dioxide 20 BUN 37 H D Creatinine 1.15 H Est GFR ( Amer) 58 L Est GFR (Non-Af Amer) 48 L BUN/Creatinine Ratio 32 H Glucose 99 Calculated Osmolality 299 Calcium 8.5 L Phosphorus 3.8 Magnesium 2.1 Consult Discharge Plan - Plan Referrals: NO,PCP [Primary Care Provider] -
[2017-01-07] MEDS: Nicotine 14 MG PATCH.TD24 TD SCH (09:21)
[2017-01-07] MEDS: Piperacillin/Tazobactam 3.375 GM in D5% in Water (Mini-Bag+) 100 ML IVPB SCH ×2 (09:22→18:07)
[2017-01-07] MEDS: Lactulose Oral Soln 20 GM/30 ML UDC PO SCH ×4 (09:22→21:02)
[2017-01-07] MEDS: Diltiazem CD (24hr) 180 MG CAPSULE PO SCH (09:22)
[2017-01-07] MEDS: clonazePAM 1 MG TABLET PO PRN ×2 (09:22→18:17)
[2017-01-07] MEDS: lamoTRIgine 100 MG TABLET PO SCH (09:22)
[2017-01-07] MEDS: Aspirin Enteric Coated 81 MG Tablet PO SCH (09:22)
[2017-01-07] MEDS: ARIPiprazole 10 MG TABLET PO SCH (09:22)
--- NOTE | 2017-01-07 13:45 | Internal Med Progress Note ---
Date of Encounter: 01/07/17 Time of Encounter: 09:20 - Assessment and plan (1) Hepatic encephalopathy Current Visit: Yes Status: Acute Assessment and plan: Secondary to underlying malignancy Given initial presentation, concern for sepsis secondary to cholangitis, will continue IV abx at this time will d/c NGT and do bedside dysphagia screening as patient more awake today and requesting food Oncology and Palliative care on board and consultations greatly appreciated Goals of care and code status has been discussed in great detail with the POA continue ani-emetics, IV fluids at this time Lactulose QID to titrate to 3-4 BM daily (2) Acute kidney injury Current Visit: No Status: Acute Assessment and plan: Likely secondary to underlying infection will continue to closely monitor renal function improved from previous day (3) Biliary drain displacement Current Visit: No Status: Chronic Qualifiers: Encounter type: initial encounter Qualified Code(s): T85.520A - Displacement of bile duct prosthesis, initial encounter (4) Bipolar disease, chronic Current Visit: No Status: Chronic (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 Current Visit: Yes Status: Chronic Assessment and plan: Oncology on board and consultation appreciated if patient does not clinically improve, family will consider comfort care measures (6) COPD (chronic obstructive pulmonary disease) Current Visit: No Status: Chronic Assessment and plan: not in acute exacerbation continue bronchodilator support and O2 supplementation Qualifiers: COPD type: unspecified COPD Qualified Code(s): J44.9 - Chronic obstructive pulmonary disease, unspecified (7) DVT prophylaxis Current Visit: No Status: Acute Assessment and plan: Heparin SQ (8) Fall Current Visit: No Status: Chronic Assessment and plan: s/p fall prior to hospitalization no internal bleed reported skin laceration noted to forehead will maintain fall precautions Qualifiers: Encounter type: initial encounter Qualified Code(s): W19.XXXA - Unspecified fall, initial encounter (9) Goals of care, counseling/discussion Current Visit: Yes Status: Acute (10) Hypokalemia Current Visit: No Status: Acute Assessment and plan: K supplemented continue to monitor electrolytes and replace as needed (11) Obstructive jaundice Current Visit: Yes Status: Chronic - Subjective Interval history: Patient seen and examined with family present at bedside. Patient remains confused but more awake and alert. Asking for food. A NGT was placed at the [facility] for medication administration as patient was too lethargic to tolerate any PO intake. Since patient is a bit more awake now, will d/c NGT and do a bedside speech eval. Will obtain speech therapy if needed. - Constitutional Vitals: Temp Pulse Resp BP Pulse Ox 97.4 F L 92 16 121/57 93 01/07/17 11:58 01/07/17 11:58 01/07/17 11:58 01/07/17 11:58 01/07/17 11:58 General appearance: Present: A&O X 0, no acute distress (jaundiced, NGT in place ) - Head Head exam: Present: atraumatic, normocephalic Additional comments: skin laceration on forehead-steri strips in place - Eye Eye exam: Present: scleral icterus - Respiratory Respiratory exam: Absent: respiratory distress, wheezes - Cardiovascular Cardiovascular exam: Present: RRR, +S1, +S2. Absent: diastolic murmur, gallop, rubs, systolic murmur - GI/Abdominal GI/Abdominal exam: Present: normal bowel sounds, soft. Absent: tenderness Additional comments: right biliary drain in place - Extremities Exam Extremities exam: Present: pedal edema, warm, radial pulses palpable and symetrical. Absent: calf tenderness - Neurological Exam Neurological exam: Present: alert (somnolent but arousable ) Internal Medicine: Result - Labs CBC & Chem 7: 01/07/17 04:30 01/07/17 04:30 Labs: Short CBC 01/07/17 Range/Units 04:30 WBC 13.0 H (4.3-11.1) K/mcL Hgb 9.6 L (11.5-15.4) g/dL Hct 28.9 L (35.3-44.9) % Plt Count 234 (140-400) K/mcL Neutrophils # 10.0 H (1.6-8.9) K/mcL BMP 01/07/17 04:30 Sodium 140 Potassium 3.1 L Chloride 107 Carbon Dioxide 20 BUN 37 H D Creatinine 1.15 H Glucose 99 Calcium 8.5 L Consult Discharge Plan - Plan Referrals: NONE,PCP [Primary Care Provider] -
--- NOTE | 2017-01-07 17:03 | Rad Onc Dictation ---
Radiation Oncology Dictation Date of Service: 01/07/17 - Progress Note Comments: Patient remains confused. C/O abdominal pain. Belly soft on exam. Patient friend in room. Other family absent. Agree with continuation of antibxs to see if she improves. See previous note for more detail. Recommended checking bilirubin with lab draws. Please feel free to call over the weekend if I can help. Otherwise, will follow-up Tuesday. Rodrick Byrnes Radiation Oncology [phone]
[2017-01-07] MEDS: 0.9 % Sodium Chloride 1,000 ML IVC SCH (18:09)
[2017-01-07] MEDS ORDERED: Vancomycin 1,000 MG in D5% in Water 250 ML IVPB SCH (21:00)
[2017-01-07] MEDS: Vancomycin 1,000 MG in D5% in Water 250 ML IVPB SCH (22:00)
[2017-01-08] MEDS: Piperacillin/Tazobactam 3.375 GM in D5% in Water (Mini-Bag+) 100 ML IVPB SCH ×3 (01:05→19:07)
[2017-01-08] MEDS: Ipratropium/Albuterol Neb 3 ML IH SCH ×5 (04:07→20:35)
[2017-01-08] MEDS: clonazePAM 1 MG TABLET PO PRN (05:00)
[2017-01-08] MEDS: *HR* Heparin 5,000 UNIT/ML VIAL SQ SCH ×2 (05:00→19:08)
[2017-01-08] MEDS: Pantoprazole 40 MG VIAL IVP SCH (05:00)
[2017-01-08 05:24] LABS: Basophils # 0.1 K/mcL (0.0-0.2); Basophils % 0.5 %; Eosinophils % 0.1 %; Hematocrit 28.8 % (35.3-44.9); Hemoglobin 9.2 g/dL (11.5-15.4); Immature Granulocytes % 4.9 % (0-4); Lymphocytes # 1.6 K/mcL (0.6-4.6); Lymphocytes % 11.9 %; Mean Corpuscular HGB Conc 31.9 g/dL (31.6-35.5); Mean Corpuscular Hemoglobin 29.2 pg (28.0-33.3); Mean Corpuscular Volume 91.4 fL (83.0-100.0); Mean Platelet Volume 10.2 fL (9.4-12.4); Monocytes # 0.9 K/mcL (0.0-1.3); Monocytes % 6.5 %; Neutrophils # 10.3 K/mcL (1.6-8.9); Nucleated Red Blood Cells 0.4 /100 WBC (0); Platelet Count 223 K/mcL (140-400); Red Blood Count 3.15 M/mcL (3.82-4.97); Red Cell Distribution Width 19.2 % (11.5-14.5); Segmented Neutrophils % 76.1 %
[2017-01-08 05:37] LABS: BUN/Creatinine Ratio 30 (6-26); Calcium 8.4 mg/dL (8.6-10.8); Carbon Dioxide 20 mEq/L (19-29); Chloride 111 mEq/L (98-109); Glucose 101 mg/dL (70-99); Osmolality,Calculated 295 (280-300); Phosphorous 2.6 mg/dL (2.3-4.7); Sodium 140 mEq/L (136-145); eGFR For African Americans > 60 (> 60); eGFR For Non-African Americans > 60 (> 60)
[2017-01-08 05:38] LABS: Blood Urea Nitrogen 26 mg/dL (7-20)
--- NOTE | 2017-01-08 07:09 | Oncology Inp Consult Note ---
Date of Encounter: 01/08/17 Time of Encounter: 07:07 - Data of Consult Patient: known to practice within the last 3 years Consult date: 01/08/17 Requesting Physician: Alannah Gardiner MD Primary Care Provider: PCP NONE - Consult Narrative Reason for consult: Obstructive jaundice, cholangiocarcinoma History of present illness: Ms. Talamantes is a 66 year old woman who is known to oncology from ongoing management of intrahepatic cholangiocarcinoma. I have summarized patient's heme/onc background below based on my most recent office report. Oncology history: Patient initially presented with diffuse abdominal pain and obstructive jaundice picture with bilirubin as high as 10.6. Abdomen CT 10/27/16 showed a 4.7 cm right hepatic mass and a second, 1.3cm lesion superiorly both concerning for metastatic malignancy. There was an additional finding of moderate intrahepatic biliary dilatation due to mass- effect on the right and left hepatic and common hepatic ducts. No other evidence of primary malignancy within the abdomen or pelvis. The reactive changes noted in the distal colon felt to be due to chronic or remote inflammatory disease. Abdomen MRI on 10/28/16 confirmed a 4.4 cm, indeterminate T2 hypoenhancing mass with a central scar centered within the liver segment 8 and an adjacent 1 cm nodule superiorly which appears to be a continuation of the dominant mass. Intrahepatic biliary dilatation again noted in addition to mild periportal adenopathy. Chest CT 11/02/16 did not show any evidence of pulmonary metastasis but there was concern about left thyroid enlargement with rightward deviation of the trachea. Stable since June 2014. Thyroid ultrasound recommended on an urgent basis. CT-guided liver biopsy 10/28/16 confirmed adenocarcinoma suspicious for cholangiocarcinoma. Antibody/Reagent Block Slide Result (staining pattern) CK7 A1 Individual Positive CK20 A1 Individual Negative CK (JIM) A1 Individual Positive CK5/6 A1 Individual Positive in a minority of cells CDX-2 A1 Individual Negative DRISS-3 A1 Individual Focal weak staining ER A1 Individual Negative Mammaglobin A1 Individual Negative HEP-PAR-1 A1 Individual No definite staining in carcinoma; focal staining consistent with residual hepatocytes TTF-1 A1 Individual Negative Napsin A A1 Individual Negative CD10 A1 Individual Negative Chromogranin A1 Individual Negative PAX-8 A1 Individual Few cells with weak staining Synaptophysin A1 Individual Negative Antibody/Reagent Block Slide Result (staining pattern) Arginase A1 Individual Negative Glypican-3 A1 Individual Negative GCDFP-15 A1 Individual Negative Antibody/Reagent Block Slide Result (staining pattern) CK19 A1 Individual Positive CA19-9 A1 Individual Positive ERCP 10/29/16 showed hilar, high-grade obstruction of the biliary system. Temporary stent was placed in the common bile duct. EGD/colonoscopy 11/04/16 showed normal esophagus, stomach, proximal duodenum. 5 mm nonbleeding polyp noted in the sigmoid colon which was resected. Unremarkable otherwise. Sigmoid colon polypectomy: Tubular adenoma. She had percutaneous biliary drainage with drain tube placement on 11/01/16 due to persistent jaundice and biliary obstruction despite common bile duct stent placement and was discharged following improvement in the bilirubin level. She had consultation with Dr. Lorenzo Perez at [facility] 11/29/16 to discuss surgical options. Due to central location of the mass, suspected periportal lymph node involvement and abutment of the portal pedicle, surgery is not an option for her. Unfortunately, she was acutely ill with hypotension and altered mental status on presentation and was hospitalized due to concern about sepsis and cholangitis. During her hospitalization, she had medical oncology consultation with Dr. Maribeth Dhillon during same hospitalization. She has recommended systemic therapy for unresectable disease. Options recommended include FOLFOX regimen versus infusional 5-FU. Due to persistently elevated bilirubin despite biliary drain, she is recommended starting with infusional 5-FU and possibly incorporating oxaliplatin depending on disease control in performance status in the future. Due to long wait times to get established medical oncologist at [facility], she recommended that patient return to us for treatment locally. I reviewed the reports and Doc-link and appreciate her input. Tumor markers: 10/28/16 10/28/16 11/12/16 08:32 08:32 15:09 Carcinoembryonic Ag 54.3 H 79.4 H CA 19-9 Antigen 3927 H 11/12/16 12/07/16 12/07/16 15:09 14:31 14:31 Carcinoembryonic Ag 73.3 H CA 19-9 Antigen 5911 H 7405 H AFP: 8 Chromogranin A: 119. Chronic hepatitis panel from 10/13/16 was negative. Most recent imaging: CT abd 11/29/2016:@ [facility] 1. Large ill-defined hypodense lesion in the central liver, consistent with biopsy-proven adenocarcinoma/cholangiocarcinoma. 2. Mild biliary ducts dilatation with endoscopic biliary stent and percutaneous biliary drain catheter in place. 3. Periportal and portal caval lymphadenopathy. 4. Post cecectomy. 5. Rectus abdominis muscles diastasis and small fat-containing infraumbilical Hernia. US 11/29/2016: 1. Biliary drain in place within the common bile duct. Some prominence of the left intrahepatic ducts without significant intrahepatic biliary ductal dilatation 2. Heterogeneous lesion in the right hepatic lobe is consistent with provided history of cholangiocarcinoma. Patent portal vein 3. Heterogeneous echotexture of the liver parenchyma may relate to underlying disease. 4. Increased echotexture of the right kidney could be related to medical renal disease 5. Partly distended gallbladder with no definite stones. Patient is currently hospitalized for possible sepsis due to suspected cholangitis after presenting with mental status changes noticed at the halfway when she's been resident for the last several weeks. Patient seen and examined at bedside with daughter (Lesly) present. Chart review for details of ongoing care by hospital team which is much appreciated. She appears to have returned to her recent usual baseline. She is still markedly lethargic with waxing and waning sensorium She's also been evaluated by Dr. Byrnes who was kind enough to discuss patient 's case with him regarding his impression/recommendations. I appreciate his input. She is also followed by palliative care team and I reviewed the most recent report for details. I appreciate the input as well. Regarding her suspected cholangitis, she is on empiric antibiotic coverage and appears to be holding relatively stable with normal vital signs. Blood culture from 01/05/17 shows GPC in 1 of 2 bottles. Definitive identification is pending. Due to concern about hepatic encephalopathy, she is on lactulose regimen. He tube in place because of concern about swallowing difficulty. Evidently, she has had some difficulty with swallowing evaluation since her hospitalization. Daughter informs that she was able to drink a pitcher of water voluntarily on the earlier on the day of admission. Oncology is consulted re: patient's underlying cholangiocarcinoma diagnosis with obstructive jaundice. She had seen Dr. Byrnes 12/31/16 and plan was for palliative radiotherapy to her obstructing the illness. We mutually decided to hold off on treatment due to planned revision of her biliary drain tube by IR which was performed on 01/03/17. Unfortunately, bilirubin has not improved suggesting that the procedure was not as successful as anticipated. Rest of past medical, surgical, family, social history detailed below and verified with patient today. Review of systems: 12 point review of systems performed with patient and positive findings noted in history of present illness. All other systems are negative: Physical exam: Vital Signs Temp 98.5 F 01/08/17 03:56 Pulse 94 01/08/17 03:56 Resp 18 01/08/17 04:09 BP 105/57 01/08/17 03:56 Pulse Ox 96 01/08/17 04:09 GENERAL: Lethargic and chronically ill appearing. Mental Status: Affect appropriate for circumstances HEENT: Deeply jaundiced. No mucositis or thrush. No other oral or pharyngeal lesions or erythema. Skin: No rashes or petechiae. No evidence of skin malignancy Lymph nodes: No cervical, supraclavicular, axillary, or inguinal adenopathy. Lungs: Clear to auscultation bilaterally. Clear to percussion bilaterally. Cardiovascular: Regular rate and rhythm. No gallops, murmurs, or rubs. Abdomen: Soft, nontender; No organomegaly or masses palpable. Extremities: No edema. No calf swelling or tenderness. No joint deformity. Neurologic: Global weakness, nonambulatory. no focal sensorimotor abnormalities. Results: Laboratory Last Values WBC 13.5 K/mcL (4.3-11.1) H 01/08/17 05:10 RBC 3.15 M/mcL (3.82-4.97) L 01/08/17 05:10 Hgb 9.2 g/dL (11.5-15.4) L 01/08/17 05:10 Hct 28.8 % (35.3-44.9) L 01/08/17 05:10 MCV 91.4 fL (83.0-100.0) 01/08/17 05:10 MCH 29.2 pg (28.0-33.3) 01/08/17 05:10 MCHC 31.9 g/dL (31.6-35.5) 01/08/17 05:10 RDW 19.2 % (11.5-14.5) H 01/08/17 05:10 Plt Count 223 K/mcL (140-400) 01/08/17 05:10 MPV 10.2 fL (9.4-12.4) 01/08/17 05:10 Immature Gran % 4.9 % (0-4) H 01/08/17 05:10 Seg Neutrophils % 76.1 % 01/08/17 05:10 Lymphocytes % 11.9 % 01/08/17 05:10 Monocytes % 6.5 % 01/08/17 05:10 Eosinophils % 0.1 % 01/08/17 05:10 Basophils % 0.5 % 01/08/17 05:10 Neutrophils # 10.3 K/mcL (1.6-8.9) H 01/08/17 05:10 Lymphocytes # 1.6 K/mcL (0.6-4.6) 01/08/17 05:10 Monocytes # 0.9 K/mcL (0.0-1.3) 01/08/17 05:10 Eosinophils # 0.0 K/mcL (0.0-0.6) 01/08/17 05:10 Basophils # 0.1 K/mcL (0.0-0.2) 01/08/17 05:10 Nucleated RBCs/100 WBC 0.4 /100 WBC (0) H 01/08/17 05:10 Immature Plt Fraction 3.0 % (1.1-6.1) 01/08/17 05:10 Sodium 140 mEq/L (136-145) 01/08/17 05:10 Potassium 3.0 mEq/L (3.5-4.5) L 01/08/17 05:10 Chloride 111 mEq/L (98-109) H 01/08/17 05:10 Carbon Dioxide 20 mEq/L (19-29) 01/08/17 05:10 BUN 26 mg/dL (7-20) H D 01/08/17 05:10 Creatinine 0.88 mg/dL (0.57-1.11) 01/08/17 05:10 Est GFR ( Amer) > 60 (> 60) 01/08/17 05:10 Est GFR (Non-Af Amer) > 60 (> 60) 01/08/17 05:10 BUN/Creatinine Ratio 30 (6-26) H 01/08/17 05:10 Glucose 101 mg/dL (70-99) H 01/08/17 05:10 POC Glucose 123 (58-89) H 01/07/17 23:50 Calculated Osmolality 295 (280-300) 01/08/17 05:10 Calcium 8.4 mg/dL (8.6-10.8) L 01/08/17 05:10 Phosphorus 2.6 mg/dL (2.3-4.7) 01/08/17 05:10 Magnesium 2.0 mg/dL (1.6-2.6) 01/08/17 05:10 Total Bilirubin 11.7 mg/dL (0.2-1.2) H 01/06/17 04:30 AST 84 Units/L (5-34) H 01/06/17 04:30 ALT 73 Units/L (0-55) H 01/06/17 04:30 Alkaline Phosphatase 398 Units/L (38-126) H 01/06/17 04:30 Ammonia 65 mcmol/L (18-72) 01/06/17 04:30 Serum Total Protein 5.7 g/dL (6.0-8.3) L 01/06/17 04:30 Albumin 1.7 g/dL (3.5-5.0) L 01/06/17 04:30 Globulin 4.0 g/dL (2.4-3.5) H 01/06/17 04:30 Albumin/Globulin Ratio 0.4 (1.1-2.2) L 01/06/17 04:30 Radiographic studies: KUB X-Ray 01/06/17 02:32 IMPRESSION: Enteric tube in good position in the stomach. D/ / Chaz Cabral MD / Chaz Cabral MD Interpreting Provider: Chaz Cabral MD I personally reviewed and interpreted patient's most recent imaging studies dated 01/06/17. I discussed the findings with the patient today. Impression/recommendations: Intrahepatic cholangiocarcinoma: We reviewed natural history and management of her current presentation. Unfortunate, options for systemic therapy limited due to severe liver dysfunction and general frailty. Dr. Byrnes is planning palliative radiotherapy if patient's overall condition improves from the standpoint of her current diagnosis of cholangitis. I think this is very reasonable. Patient and her daughter understand that if were able to get her bilirubin to less than 3, she may benefit from aggressive intervention including combination chemotherapy with dose adjustments to account for her overall frailty which remains a concern. Other consideration will be low intensity systemic therapy but I do not believe she'll derive significant benefit from low intensity therapy which may take several weeks to notice effectiveness. I'm not certain that she has that much time without improvement in her overall condition. We revisit goals of care today and both patient and her daughter understand treatment intent in this scenario is palliative regarding as a treatment modality applied given the extent of her disease. Appreciate ongoing helped by palliative care team with completing advanced directives. Hepatic encephalopathy: Ammonia was 116 on 01/05/17. Had been normal previously. Now back to normal on 01/06/17. I agree with ongoing supportive measures for liver dysfunction. Patient is eager to return to by mouth intake. Since she was able to swallow up until early on the day of admission, I think is reasonable and we'll recommend to resume oral feeding once swallowing is less of a concern. Regardless of treatment direction, being able to swallow should improve her overall quality of life. Suspected cholangitis: She is an appropriate supportive measures and appears to be holding steady. Blood cultures positive in 1 of 2 tubes. Significance unclear. Rule out with definitive cultures we'll check her with ongoing supportive measures as you're doing. We'll follow the patient peripherally with you during this hospitalization. Please call with interval questions. Thank you for your excellent ongoing care for allowing us to see her while in- house. Past Med Surg Social Fam HX - Past Medical History Medical history: arthritis, cancer, COPD, hyperlipidemia, hypertension, liver disease, other Psychiatric history: anxiety, bipolar, depression - Past Surgical History Surgical History: appendectomy, knee replacement, orthopedic, other, other - Social History Smoking Status: Current every day smoker Smokeless Tobacco Status: No Alcohol use: none Drug use: none - Family History Brother Living Status: Hx Family Cancer: Yes (Colon cancer) Mother Adopted: No Living Status: Still Living Hx Family Endocrine Disorder: Yes (DM) Medications and Allergies Buspirone [Buspar] 15 mg PO BID 02/14/15 [History] Diltiazem CD (24hr) [Cardizem CD] 180 mg PO DAILY 08/25/15 [History] ARIPiprazole [Abilify] 10 mg PO DAILY 10/27/16 [History] Duloxetine HCl [Cymbalta] 60 mg PO BID 10/27/16 [History] lamoTRIgine [Lamotrigine] 200 mg PO DAILY 10/28/16 [History] Docusate Sodium [Dok] 100 mg PO BID 12/17/16 [History] Sennosides [Senna] 8.6 mg PO DAILY 12/17/16 [History] clonazePAM [Klonopin] 1 mg PO TID PRN #10 tablet 12/21/16 [Rx] Nicotine Patch [Nicoderm] 14 mg TD DAILY 12/29/16 [History] Morphine Immed Rel [Morphine Sulfate] 15 mg PO Q6H PRN 12/30/16 [History] Morphine Sulfate [Arymo ER] 15 mg PO Q12H PRN 12/30/16 [History] Albuterol Sulfate [Ventolin Hfa] 2 puff IH Q4H PRN 01/06/17 [History] Aspirin [Lo-Dose Aspirin EC] 81 mg PO DAILY 01/06/17 [History] Lactulose 20 gm PO QID 01/06/17 [History] Omeprazole [PriLOSEC] 20 mg PO DAILY 01/06/17 [History] Allergies acetaminophen [From Percocet] Allergy (Verified 01/06/17 12:07) Itching Oxycodone [From Percocet] Allergy (Verified 01/06/17 12:07) Itching Oncology - Exam - Constitutional Vitals: Temp Pulse Resp BP Pulse Ox 98.5 F 94 18 105/57 96 01/08/17 03:56 01/08/17 03:56 01/08/17 04:09 01/08/17 03:56 01/08/17 04:09 Oncology - Results - Labs Labs: Short CBC 01/08/17 Range/Units 05:10 WBC 13.5 H (4.3-11.1) K/mcL Hgb 9.2 L (11.5-15.4) g/dL Hct 28.8 L (35.3-44.9) % Plt Count 223 (140-400) K/mcL Neutrophils # 10.3 H (1.6-8.9) K/mcL BMP 01/08/17 05:10 Sodium 140 Potassium 3.0 L Chloride 111 H Carbon Dioxide 20 BUN 26 H D Creatinine 0.88 Glucose 101 H Calcium 8.4 L Consult Discharge Plan - Plan Referrals: NONE,PCP [Primary Care Provider] -
[2017-01-08] MEDS ORDERED: Potassium Chloride 40 MEQ, Lidocaine 1% 2 ML in D5% in Water 500 ML IVPB ONE (07:26)
--- NOTE | 2017-01-08 10:19 | Palliative Progress Note ---
Date of Encounter: 01/08/17 Time of Encounter: 09:45 - Assessment and plan (1) Goals of care, counseling/discussion Current Visit: Yes Status: Acute Assessment and plan: Patient is DNRCC - A, DNI. Attempted to call daughter Cinthia and give update but no answer. Patient is more alert today but still to confused to follow commands. NG still in and remains NPO. Will continue to follow. (2) Cancer associated pain Current Visit: Yes Status: Acute Assessment and plan: Patient has been to lethargic to report accurate pain assessment. No medication in past 24hrs. Remains NPO and has IV morphine PRN. 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 Still confused. Having BMs from lactulose. WBC remains elevated. Case discussed with Dr. Gardiner. Continue antibiotics for now. Will update the family. - Constitutional Vitals: Abnormal lab results WBC 13.5 K/mcL (4.3-11.1) H 01/08/17 05:10 RBC 3.15 M/mcL (3.82-4.97) L 01/08/17 05:10 Hgb 9.2 g/dL (11.5-15.4) L 01/08/17 05:10 Hct 28.8 % (35.3-44.9) L 01/08/17 05:10 RDW 19.2 % (11.5-14.5) H 01/08/17 05:10 Immature Gran % 4.9 % (0-4) H 01/08/17 05:10 Neutrophils # 10.3 K/mcL (1.6-8.9) H 01/08/17 05:10 Nucleated RBCs/100 WBC 0.4 /100 WBC (0) H 01/08/17 05:10 Potassium 3.0 mEq/L (3.5-4.5) L 01/08/17 05:10 Chloride 111 mEq/L (98-109) H 01/08/17 05:10 BUN 26 mg/dL (7-20) H D 01/08/17 05:10 BUN/Creatinine Ratio 30 (6-26) H 01/08/17 05:10 Glucose 101 mg/dL (70-99) H 01/08/17 05:10 POC Glucose 123 (58-89) H 01/07/17 23:50 Calcium 8.4 mg/dL (8.6-10.8) L 01/08/17 05:10 Total Bilirubin 11.7 mg/dL (0.2-1.2) H 01/06/17 04:30 AST 84 Units/L (5-34) H 01/06/17 04:30 ALT 73 Units/L (0-55) H 01/06/17 04:30 Alkaline Phosphatase 398 Units/L (38-126) H 01/06/17 04:30 Serum Total Protein 5.7 g/dL (6.0-8.3) L 01/06/17 04:30 Albumin 1.7 g/dL (3.5-5.0) L 01/06/17 04:30 Globulin 4.0 g/dL (2.4-3.5) H 01/06/17 04:30 Albumin/Globulin Ratio 0.4 (1.1-2.2) L 01/06/17 04:30 - Head Head exam: Present: atraumatic, normal inspection, normocephalic - Eye Eye exam: Present: PERRL Pupils: Present: PERRL - ENT ENT exam: Present: mucous membranes dry - Neck Neck exam: Present: normal inspection - Respiratory Respiratory exam: Present: CTAB - Cardiovascular Cardiovascular exam: Present: RRR, +S1, +S2 - GI/Abdominal GI/Abdominal exam: Present: normal bowel sounds, soft, tenderness (with palpation) - Neurological Exam Neurological exam: Present: alert (confused x 3) - Psychiatric Psychiatric exam: Present: normal affect - Skin Skin exam: Present: warm Palliative Quality Palliative Quality: Screen for Code Status: Yes, Screen for Goals of Care: Yes, Screen for Pain: Yes, If Pain Regimen Started, Initiate Bowel Regimen: Yes, Screen for Nausea/Vomitting: Yes Code Status: 01/06/17 02:30 Resuscitation Status: Active [RES] Routine Comment: Resuscitation Status: Full Code 01/06/17 11:39 DNR [Resuscitation Status: Active] [RES] Routine Comment: NO vasopressors Resuscitation Status: [id number] - Labs CBC & Chem 7: 01/08/17 05:10 01/08/17 05:10 Labs: Laboratory Results - last 24 hr 01/07/17 01/07/17 01/07/17 00:40 05:54 12:05 WBC RBC Hgb Hct MCV MCH MCHC RDW Plt Count MPV Immature Gran % Seg Neutrophils % Lymphocytes % Monocytes % Eosinophils % Basophils % Neutrophils # Lymphocytes # Monocytes # Eosinophils # Basophils # Nucleated RBCs/100 WBC Immature Plt Fraction Sodium Potassium Chloride Carbon Dioxide BUN Creatinine Est GFR ( Amer) Est GFR (Non-Af Amer) BUN/Creatinine Ratio Glucose POC Glucose 94 H 95 H 137 H Calculated Osmolality Calcium Phosphorus Magnesium 01/07/17 01/07/17 01/08/17 15:50 23:50 05:10 WBC 13.5 H RBC 3.15 L Hgb 9.2 L Hct 28.8 L MCV 91.4 MCH 29.2 MCHC 31.9 RDW 19.2 H Plt Count 223 MPV 10.2 Immature Gran % 4.9 H Seg Neutrophils % 76.1 Lymphocytes % 11.9 Monocytes % 6.5 Eosinophils % 0.1 Basophils % 0.5 Neutrophils # 10.3 H Lymphocytes # 1.6 Monocytes # 0.9 Eosinophils # 0.0 Basophils # 0.1 Nucleated RBCs/100 WBC 0.4 H Immature Plt Fraction 3.0 Sodium Potassium Chloride Carbon Dioxide BUN Creatinine Est GFR ( Amer) Est GFR (Non-Af Amer) BUN/Creatinine Ratio Glucose POC Glucose 106 H 123 H Calculated Osmolality Calcium Phosphorus Magnesium 01/08/17 05:10 WBC RBC Hgb Hct MCV MCH MCHC RDW Plt Count MPV Immature Gran % Seg Neutrophils % Lymphocytes % Monocytes % Eosinophils % Basophils % Neutrophils # Lymphocytes # Monocytes # Eosinophils # Basophils # Nucleated RBCs/100 WBC Immature Plt Fraction Sodium 140 Potassium 3.0 L Chloride 111 H Carbon Dioxide 20 BUN 26 H D Creatinine 0.88 Est GFR ( Amer) > 60 Est GFR (Non-Af Amer) > 60 BUN/Creatinine Ratio 30 H Glucose 101 H POC Glucose Calculated Osmolality 295 Calcium 8.4 L Phosphorus 2.6 Magnesium 2.0 Consult Discharge Plan - Plan Referrals: NONE,PCP [Primary Care Provider] -
[2017-01-08] MEDS: Aspirin Enteric Coated 81 MG Tablet PO SCH (10:25)
[2017-01-08] MEDS: ARIPiprazole 10 MG TABLET PO SCH (10:25)
[2017-01-08] MEDS: lamoTRIgine 100 MG TABLET PO SCH (10:25)
[2017-01-08] MEDS: Nicotine 14 MG PATCH.TD24 TD SCH (10:26)
[2017-01-08] MEDS: Lactulose Oral Soln 20 GM/30 ML UDC PO SCH ×4 (10:28→21:36)
[2017-01-08] MEDS: 0.9 % Sodium Chloride 1,000 ML IVC SCH (10:29)
--- NOTE | 2017-01-08 10:38 | Internal Med Progress Note ---
Date of Encounter: 01/08/17 Time of Encounter: 10:36 - Assessment and plan (1) Hepatic encephalopathy Current Visit: Yes Status: Acute Assessment and plan: Secondary to underlying malignancy Given initial presentation, concern for sepsis secondary to cholangitis, will continue IV abx at this time NGT to remain in place until patient is cleared by speech therapy will obtain dietary consultation Oncology and Palliative care on board and consultations greatly appreciated Goals of care and code status has been discussed in great detail with the POA continue ani-emetics, IV fluids at this time Lactulose QID to titrate to 3-4 BM daily (2) Acute kidney injury Current Visit: No Status: Acute Assessment and plan: Likely secondary to underlying infection will continue to closely monitor renal function back to baseline (3) Biliary drain displacement Current Visit: No Status: Chronic Qualifiers: Encounter type: initial encounter Qualified Code(s): T85.520A - Displacement of bile duct prosthesis, initial encounter (4) Bipolar disease, chronic Current Visit: No Status: Chronic (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 Current Visit: Yes Status: Chronic Assessment and plan: Oncology on board and consultation appreciated if patient does not clinically improve, family will consider comfort care measures (6) COPD (chronic obstructive pulmonary disease) Current Visit: No Status: Chronic Assessment and plan: not in acute exacerbation continue bronchodilator support and O2 supplementation Qualifiers: COPD type: unspecified COPD Qualified Code(s): J44.9 - Chronic obstructive pulmonary disease, unspecified (7) DVT prophylaxis Current Visit: No Status: Acute Assessment and plan: Heparin SQ (8) Fall Current Visit: No Status: Chronic Assessment and plan: s/p fall prior to hospitalization no internal bleed reported skin laceration noted to forehead will maintain fall precautions Qualifiers: Encounter type: initial encounter Qualified Code(s): W19.XXXA - Unspecified fall, initial encounter (9) Goals of care, counseling/discussion Current Visit: Yes Status: Acute (10) Hypokalemia Current Visit: No Status: Acute Assessment and plan: K supplemented continue to monitor electrolytes and replace as needed (11) Obstructive jaundice Current Visit: Yes Status: Chronic - Subjective Interval history: Patient seen and examined with family present at bedside. Pt is awake and communicating better compared to previous day. Mental status remains confused. Reporting of diffuse abd pain. Pt was evaluated by speech therapy yesterday and was unable to clear the speech evaluation due to which she is to remain NPO. Will obtain dietary evaluation to possible start tube feeds if patient were to remain NPO. Repeat speech evaluation requested today. - Constitutional Vitals: Temp Pulse Resp BP Pulse Ox 98.5 F 85 18 128/64 94 01/08/17 07:30 01/08/17 07:30 01/08/17 07:54 01/08/17 07:30 01/08/17 07:54 General appearance: Present: A&O X 0, no acute distress (jaundiced, NGT in place ) - Head Head exam: Present: atraumatic, normocephalic - Eye Eye exam: Present: conjuntiva pink, sclera anicteric - Respiratory Respiratory exam: Absent: respiratory distress, wheezes - Cardiovascular Cardiovascular exam: Present: RRR, +S1, +S2 - GI/Abdominal GI/Abdominal exam: Present: normal bowel sounds, soft. Absent: tenderness - Extremities Exam Extremities exam: Present: pedal edema, warm, radial pulses palpable and symetrical. Absent: calf tenderness - Neurological Exam Neurological exam: Present: alert - Skin Additional comments: forehead laceration-bruising [id number] intact Internal Medicine: Result - Labs CBC & Chem 7: 01/08/17 05:10 01/08/17 05:10 Labs: Short CBC 01/08/17 Range/Units 05:10 WBC 13.5 H (4.3-11.1) K/mcL Hgb 9.2 L (11.5-15.4) g/dL Hct 28.8 L (35.3-44.9) % Plt Count 223 (140-400) K/mcL Neutrophils # 10.3 H (1.6-8.9) K/mcL BMP 01/08/17 05:10 Sodium 140 Potassium 3.0 L Chloride 111 H Carbon Dioxide 20 BUN 26 H D Creatinine 0.88 Glucose 101 H Calcium 8.4 L Consult Discharge Plan - Plan Referrals: NONE,PCP [Primary Care Provider] -
[2017-01-08] MEDS: *HR* Morphine 2 MG/ML SYRINGE IVP PRN (10:57)
[2017-01-08 11:09] LABS: Alanine Aminotransferase 64 Units/L (0-55); Albumin/Globulin Ratio 0.5 (1.1-2.2); Alkaline Phosphatase 416 Units/L (38-126); Aspartate Amino Transferase 79 Units/L (5-34); Bilirubin,Direct 8.7 mg/dL (0.0-0.5); Bilirubin,Indirect 2.6 mg/dL (0.0-1.2); Globulin 3.6 g/dL (2.4-3.5); Total Protein 5.3 g/dL (6.0-8.3)
[2017-01-08 11:10] LABS: Albumin 1.7 g/dL (3.5-5.0); Bilirubin,Total 11.3 mg/dL (0.2-1.2)
--- NOTE | 2017-01-08 13:19 | Event Note ---
Date of Encounter: 01/08/17 Time of Encounter: 12:30 Conducted bedside meeting with daughter/SANDY Vicente. she was just updated by Onocology and understands that palliative radiation and chemo cannot be started until patient is stable and well enough to participate. I reviewed labs and overall condition. Patient has had little improvement in overall condition. However, she is a little more alert today but still with confusion and verbal rambling. Cannot follow commands to do swallow eval so she remains NPO. I discussed that hospice care was still an option if she felt that strides were not being made in her mothers condition. Cinthia is emotional as this is new diagnosis for her mother and she is struggling to do what her mother desired. I provided comfort and prayer and we will talk again tomorrow. I explained that patient could be sent back to [facility] with hospice care if she fails to improve.
[2017-01-08] MEDS: Vancomycin 1,000 MG in D5% in Water 250 ML IVPB SCH (23:28)
[2017-01-09] MEDS: Ipratropium/Albuterol Neb 3 ML IH SCH ×5 (00:10→22:00)
[2017-01-09] MEDS: Piperacillin/Tazobactam 3.375 GM in D5% in Water (Mini-Bag+) 100 ML IVPB SCH ×3 (01:06→16:57)
[2017-01-09 04:07] LABS: Basophils # 0.1 K/mcL (0.0-0.2); Basophils % 0.6 %; Eosinophils % 0.1 %; Hematocrit 31.1 % (35.3-44.9); Immature Granulocytes % 5.7 % (0-4); Lymphocytes # 1.7 K/mcL (0.6-4.6); Lymphocytes % 11.1 %; Mean Corpuscular HGB Conc 32.2 g/dL (31.6-35.5); Mean Corpuscular Hemoglobin 29.7 pg (28.0-33.3); Mean Corpuscular Volume 92.3 fL (83.0-100.0); Mean Platelet Volume 10.3 fL (9.4-12.4); Monocytes # 0.9 K/mcL (0.0-1.3); Monocytes % 5.9 %; Neutrophils # 11.6 K/mcL (1.6-8.9); Nucleated Red Blood Cells 0.4 /100 WBC (0); Platelet Count 196 K/mcL (140-400); Red Blood Count 3.37 M/mcL (3.82-4.97); Segmented Neutrophils % 76.6 %
[2017-01-09 04:18] LABS: BUN/Creatinine Ratio 22 (6-26); Blood Urea Nitrogen 17 mg/dL (7-20); Calcium 8.7 mg/dL (8.6-10.8); Carbon Dioxide 19 mEq/L (19-29); Chloride 113 mEq/L (98-109); Glucose 134 mg/dL (70-99); Magnesium 1.9 mg/dL (1.6-2.6); Osmolality,Calculated 298 (280-300); Phosphorous 2.6 mg/dL (2.3-4.7); Potassium 2.8 mEq/L (3.5-4.5); Sodium 142 mEq/L (136-145); eGFR For African Americans > 60 (> 60); eGFR For Non-African Americans > 60 (> 60)
[2017-01-09 04:29] LABS: Anisocytosis 1+ (Not Present); Platelet Estimate Normal (Normal)
[2017-01-09] MEDS: Pantoprazole 40 MG VIAL IVP SCH (06:01)
[2017-01-09] MEDS: *HR* Heparin 5,000 UNIT/ML VIAL SQ SCH ×2 (06:01→16:58)
[2017-01-09] MEDS: Aspirin Enteric Coated 81 MG Tablet PO SCH (10:21)
[2017-01-09] MEDS: Nicotine 14 MG PATCH.TD24 TD SCH (10:21)
[2017-01-09] MEDS: Lactulose Oral Soln 20 GM/30 ML UDC PO SCH ×4 (10:21→21:56)
[2017-01-09] MEDS: ARIPiprazole 10 MG TABLET PO SCH (10:21)
[2017-01-09] MEDS: lamoTRIgine 100 MG TABLET PO SCH (10:21)
[2017-01-09] MEDS: clonazePAM 1 MG TABLET PO PRN (10:25)
[2017-01-09] MEDS: *HR* Morphine 2 MG/ML SYRINGE IVP PRN (10:26)
[2017-01-09] MEDS: 0.9 % Sodium Chloride 1,000 ML IVC SCH (10:28)
--- NOTE | 2017-01-09 12:07 | Internal Med Progress Note ---
Date of Encounter: 01/09/17 Time of Encounter: 12:05 - Assessment and plan (1) Hepatic encephalopathy Current Visit: Yes Status: Acute Assessment and plan: Secondary to underlying malignancy Given initial presentation, concern for sepsis secondary to cholangitis, will continue IV abx at this time NGT to remain in place until patient is cleared by speech therapy started on tube feeds by preschool principal Oncology and Palliative care on board and consultations greatly appreciated Goals of care and code status has been discussed in great detail with the POA continue ani-emetics, IV fluids at this time Lactulose QID to titrate to 3-4 BM daily (2) Acute kidney injury Current Visit: No Status: Acute Assessment and plan: Likely secondary to underlying infection will continue to closely monitor renal function back to baseline (3) Biliary drain displacement Current Visit: No Status: Chronic Assessment and plan: IR consulted and will be replaced in am Qualifiers: Encounter type: initial encounter Qualified Code(s): T85.520A - Displacement of bile duct prosthesis, initial encounter (4) Bipolar disease, chronic Current Visit: No Status: Chronic (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 Current Visit: Yes Status: Chronic Assessment and plan: Oncology on board and consultation appreciated if patient does not clinically improve, family will consider comfort care measures (6) COPD (chronic obstructive pulmonary disease) Current Visit: No Status: Chronic Assessment and plan: not in acute exacerbation continue bronchodilator support and O2 supplementation Qualifiers: COPD type: unspecified COPD Qualified Code(s): J44.9 - Chronic obstructive pulmonary disease, unspecified (7) DVT prophylaxis Current Visit: No Status: Acute Assessment and plan: Heparin SQ (8) Fall Current Visit: No Status: Chronic Assessment and plan: s/p fall prior to hospitalization no internal bleed reported skin laceration noted to forehead will maintain fall precautions maintain fall precautions Qualifiers: Encounter type: initial encounter Qualified Code(s): W19.XXXA - Unspecified fall, initial encounter (9) Goals of care, counseling/discussion Current Visit: Yes Status: Acute (10) Hypokalemia Current Visit: No Status: Acute Assessment and plan: K supplemented continue to monitor electrolytes and replace as needed (11) Obstructive jaundice Current Visit: Yes Status: Chronic - Subjective Interval history: Patient seen and examined. Resting in bed, mental status unchanged from previous day. able to communicate but still remains confused. denies any pain at this time Noted to have sustained a fall overnight, no injuries reported. Pt's right biliary drain was noted to be pulled out. IR was consulted and as per the repeat KUB, no emergent intervention is needed as per the oncall interventional radiologist (Dr. Joon Rios), patient's drainage catheter will be replaced by IR in am (01/10/17). - Constitutional Vitals: Temp Pulse Resp BP Pulse Ox 97.9 F 78 18 98/56 93 01/09/17 11:27 01/09/17 11:27 01/09/17 11:27 01/09/17 11:27 01/09/17 11:27 General appearance: Present: A&O X 0, no acute distress (jaundiced, NGT in place ) - Head Head exam: Present: atraumatic, normocephalic - Eye Eye exam: Present: conjuntiva pink, sclera anicteric - Respiratory Respiratory exam: Absent: respiratory distress, wheezes - Cardiovascular Cardiovascular exam: Present: RRR, +S1, +S2. Absent: diastolic murmur, gallop, rubs, systolic murmur - GI/Abdominal GI/Abdominal exam: Present: distended (ascites), normal bowel sounds, soft, no peritoneal signs. Absent: tenderness - Extremities Exam Extremities exam: Present: pedal edema, warm, radial pulses palpable and symetrical. Absent: calf tenderness - Neurological Exam Neurological exam: Present: alert - Skin Additional comments: forehead laceration with steri-strips intact Internal Medicine: Result - Labs CBC & Chem 7: 01/09/17 04:00 01/09/17 04:00 Labs: Short CBC 01/09/17 Range/Units 04:00 WBC 15.1 H (4.3-11.1) K/mcL Hgb 10.0 L (11.5-15.4) g/dL Hct 31.1 L (35.3-44.9) % Plt Count 196 (140-400) K/mcL Neutrophils # 11.6 H (1.6-8.9) K/mcL BMP 01/09/17 04:00 Sodium 142 Potassium 2.8 L Chloride 113 H Carbon Dioxide 19 BUN 17 Creatinine 0.77 Glucose 134 H Calcium 8.7 Consult Discharge Plan - Plan Referrals: NONE,PCP [Primary Care Provider] -
[2017-01-09] MEDS: Potassium Chloride 40 MEQ, Lidocaine 1% 2 ML in D5% in Water 500 ML IVPB SCH ×2 (13:02→17:41)
--- NOTE | 2017-01-09 13:34 | Palliative Progress Note ---
Date of Encounter: 01/09/17 Time of Encounter: 11:30 - Assessment and plan (1) Goals of care, counseling/discussion Current Visit: Yes Status: Acute Assessment and plan: Patient is DNRCC - A, DNI. Attempted to call yann Vicente and give update but no answer. Patient to have biliary tube reinserted tomorrow per IR. Will set -up family meeting in AM to discuss POC and patients poor prognosis. Plan is to provide support to yann Vicente while discussing patients lack of overall improvement. (2) Cancer associated pain Current Visit: Yes Status: Acute Assessment and plan: Patient has been to lethargic to report accurate pain assessment. No medication in past 24hrs. Remains NPO and has IV morphine PRN. 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 Still confused. Having BMs from lactulose. Events of fall noted from last night. Patient appears comfortable. - Constitutional Vitals: Abnormal lab results WBC 15.1 K/mcL (4.3-11.1) H 01/09/17 04:00 RBC 3.37 M/mcL (3.82-4.97) L 01/09/17 04:00 Hgb 10.0 g/dL (11.5-15.4) L 01/09/17 04:00 Hct 31.1 % (35.3-44.9) L 01/09/17 04:00 RDW 20.0 % (11.5-14.5) H 01/09/17 04:00 Immature Gran % 5.7 % (0-4) H 01/09/17 04:00 Neutrophils # 11.6 K/mcL (1.6-8.9) H 01/09/17 04:00 Nucleated RBCs/100 WBC 0.4 /100 WBC (0) H 01/09/17 04:00 Anisocytosis 1+ (Not Present) A 01/09/17 04:00 Potassium 2.8 mEq/L (3.5-4.5) L 01/09/17 04:00 Chloride 113 mEq/L (98-109) H 01/09/17 04:00 Glucose 134 mg/dL (70-99) H 01/09/17 04:00 POC Glucose 125 (58-89) H 01/08/17 12:25 Total Bilirubin 11.3 mg/dL (0.2-1.2) H 01/08/17 05:10 Direct Bilirubin 8.7 mg/dL (0.0-0.5) H 01/08/17 05:10 Indirect Bilirubin 2.6 mg/dL (0.0-1.2) H 01/08/17 05:10 AST 79 Units/L (5-34) H 01/08/17 05:10 ALT 64 Units/L (0-55) H 01/08/17 05:10 Alkaline Phosphatase 416 Units/L (38-126) H 01/08/17 05:10 Serum Total Protein 5.3 g/dL (6.0-8.3) L 01/08/17 05:10 Albumin 1.7 g/dL (3.5-5.0) L 01/08/17 05:10 Globulin 3.6 g/dL (2.4-3.5) H 01/08/17 05:10 Albumin/Globulin Ratio 0.5 (1.1-2.2) L 01/08/17 05:10 - Head Head exam: Present: atraumatic, normal inspection, normocephalic - Eye Eye exam: Present: PERRL - ENT ENT exam: Present: mucous membranes dry - Neck Neck exam: Present: full ROM - Respiratory Respiratory exam: Present: decreased breath sounds - Expanded Respiratory Exam Location: decreased breath sounds: Left, Right, Lower - Cardiovascular Cardiovascular exam: Present: RRR, +S1, +S2 - GI/Abdominal GI/Abdominal exam: Present: normal bowel sounds, soft, tenderness Additional comments: Noted that biliary drain was pulled out last night. Plan to have IR reinsert in AM. Other biliary tube intact. - Extremities Exam Extremities exam: Present: full ROM - Back Exam Back exam: Present: full ROM - Neurological Exam Neurological exam: Present: alert, altered - Psychiatric Psychiatric exam: Present: flat affect - Skin Skin exam: Present: warm Palliative Quality Palliative Quality: Screen for Code Status: Yes, Screen for Goals of Care: Yes, Screen for Pain: Yes, If Pain Regimen Started, Initiate Bowel Regimen: Yes, Screen for Nausea/Vomitting: Yes Code Status: 01/06/17 02:30 Resuscitation Status: Active [RES] Routine Comment: Resuscitation Status: Full Code 01/06/17 11:39 DNR [Resuscitation Status: Active] [RES] Routine Comment: NO vasopressors Resuscitation Status: [id number] - Labs CBC & Chem 7: 01/09/17 04:00 01/09/17 04:00 Labs: Laboratory Results - last 24 hr 01/08/17 01/08/17 01/09/17 05:05 12:25 02:03 WBC RBC Hgb Hct MCV MCH MCHC RDW Plt Count MPV Immature Gran % Seg Neutrophils % Lymphocytes % Monocytes % Eosinophils % Basophils % Neutrophils # Lymphocytes # Monocytes # Eosinophils # Basophils # Nucleated RBCs/100 WBC Platelet Estimate Anisocytosis Sodium Potassium Chloride Carbon Dioxide BUN Creatinine Est GFR ( Amer) Est GFR (Non-Af Amer) BUN/Creatinine Ratio Glucose POC Glucose 98 H 125 H Calculated Osmolality Calcium Phosphorus Magnesium Stl C. diff Tox B Gene Negative 01/09/17 01/09/17 04:00 04:00 WBC 15.1 H RBC 3.37 L Hgb 10.0 L Hct 31.1 L MCV 92.3 MCH 29.7 MCHC 32.2 RDW 20.0 H Plt Count 196 MPV 10.3 Immature Gran % 5.7 H Seg Neutrophils % 76.6 Lymphocytes % 11.1 Monocytes % 5.9 Eosinophils % 0.1 Basophils % 0.6 Neutrophils # 11.6 H Lymphocytes # 1.7 Monocytes # 0.9 Eosinophils # 0.0 Basophils # 0.1 Nucleated RBCs/100 WBC 0.4 H Platelet Estimate Normal Anisocytosis 1+ A Sodium 142 Potassium 2.8 L Chloride 113 H Carbon Dioxide 19 BUN 17 Creatinine 0.77 Est GFR ( Amer) > 60 Est GFR (Non-Af Amer) > 60 BUN/Creatinine Ratio 22 Glucose 134 H POC Glucose Calculated Osmolality 298 Calcium 8.7 Phosphorus 2.6 Magnesium 1.9 Stl C. diff Tox B Gene - Impressions Impressions KUB X-Ray 01/09/17 11:25 IMPRESSION: One biliary drainage catheter has been removed and a new biliary drainage catheter is in place. A second drainage catheter is in place from a more inferior approach. The bowel gas pattern is unremarkable. D/ / 01/09/2017 12:42:30 Seymour Lynn MD / Aniya Mahajan Interpreting Provider: Seymour Lynn MD Consult Discharge Plan - Plan Referrals: NONE,PCP [Primary Care Provider] -
[2017-01-09] MEDS: Vancomycin 1,000 MG in D5% in Water 250 ML IVPB SCH (21:55)
[2017-01-10] MEDS: Piperacillin/Tazobactam 3.375 GM in D5% in Water (Mini-Bag+) 100 ML IVPB SCH ×3 (00:46→17:02)
[2017-01-10 04:32] LABS: Hematocrit 33.6 % (35.3-44.9); Hemoglobin 10.7 g/dL (11.5-15.4); Mean Corpuscular HGB Conc 31.8 g/dL (31.6-35.5); Mean Corpuscular Volume 94.1 fL (83.0-100.0); Mean Platelet Volume 10.1 fL (9.4-12.4); Nucleated Red Blood Cells 0.6 /100 WBC (0); Platelet Count 172 K/mcL (140-400); Red Blood Count 3.57 M/mcL (3.82-4.97); Red Cell Distribution Width 21.2 % (11.5-14.5)
[2017-01-10] MEDS: Ipratropium/Albuterol Neb 3 ML IH SCH ×4 (04:36→22:29)
[2017-01-10 04:47] LABS: Alanine Aminotransferase 69 Units/L (0-55); Albumin/Globulin Ratio 0.4 (1.1-2.2); Alkaline Phosphatase 418 Units/L (38-126); Aspartate Amino Transferase 77 Units/L (5-34); BUN/Creatinine Ratio 16 (6-26); Blood Urea Nitrogen 13 mg/dL (7-20); Calcium 8.6 mg/dL (8.6-10.8); Carbon Dioxide 19 mEq/L (19-29); Chloride 118 mEq/L (98-109); Globulin 3.8 g/dL (2.4-3.5); Glucose 131 mg/dL (70-99); Magnesium 1.8 mg/dL (1.6-2.6); Osmolality,Calculated 302 (280-300); Phosphorous 1.7 mg/dL (2.3-4.7); Potassium 3.5 mEq/L (3.5-4.5); Sodium 145 mEq/L (136-145); Total Protein 5.4 g/dL (6.0-8.3); eGFR For African Americans > 60 (> 60); eGFR For Non-African Americans > 60 (> 60)
[2017-01-10 04:57] LABS: Albumin 1.6 g/dL (3.5-5.0); Bilirubin,Total 12.1 mg/dL (0.2-1.2); Lymphocytes # 1.1 K/mcL (0.6-4.6); Monocytes # 1.1 K/mcL (0.0-1.3); Neutrophils # 15.6 K/mcL (1.6-8.9)
[2017-01-10 04:58] LABS: Anisocytosis 2+ (Not Present); Platelet Estimate Normal (Normal); Polychromasia 3+ (Not Present)
[2017-01-10] MEDS: Pantoprazole 40 MG VIAL IVP SCH (05:51)
[2017-01-10] MEDS: *HR* Heparin 5,000 UNIT/ML VIAL SQ SCH ×2 (05:51→17:23)
[2017-01-10] MEDS: 0.9 % Sodium Chloride 1,000 ML IVC SCH (06:46)
--- NOTE | 2017-01-10 09:40 | Infectious Disease Consult ---
Date of Encounter: 01/10/17 Time of Encounter: 09:40 Assessment and Plan (1) Leukocytosis Status: Acute Assessment and plan: Since admission patient has met two SIRS criteria of leukocytosis white blood count > 12,000 and pulse 92 Labs on admission revealed leukocytosis 12.7 that has gradually increased to 17.7, bilirubin has increased from 6.1 to now 12.1 Imaging: KUB reveals biliary drainage catheter in place and a second drainage catheter is in place from a more inferior approach. Cultures: None Antibiotics: IV vancomycin and Zosyn for concern for cholangitis Recommendations: Continue IV Zosyn. Discontinue Vancomycin. Duration of antibiotics will depend on clinical picture. Please continue to monitor for drug toxicities. Please continue to follow renal function. Qualifiers: Leukocytosis type: unspecified Qualified Code(s): D72.829 - Elevated white blood cell count, unspecified (2) Intrahepatic cholangiocarcinoma Status: Chronic Assessment and plan: Biliary drain was replaced today. 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 Oncology and Palliative care following (5) Obstructive jaundice Status: Chronic Assessment and plan: Biliary drain was replaced today. Infectious Disease HPI - Data of Consult Requesting Physician: Alannah Gardiner MD Primary Care Provider: PCP NONE - Consult Narrative Reason for consult: Persistent leukocytosis History of present illness: Ms. Talamantes is a 66 year old female who was admitted to [facility] on 01/06/17 for abdominal pain, altered mental status. Infectious disease is consulted on 01/10/17 for persistent leukocytosis. Ms. Talamantes is a 66 year old female with PMH significant for intrahepatic cholangiocarcinoma with amrita metastases diagnosed 3 months ago, persistent hyperbilirubinemia despite PTC, hepatic encephalopathy, Ulcerative colitis diagnosed at age 15, COPD, Bipolar disorder, nicotine abuse, and HTN. She has an unresectable disease and palliative chemotherapy is recommended. Patient's clinical status has not been stable enough to initiate the palliative chemotherapy. The patient has received radiation to the liver for obstructive jaundice. She has persistent obstructive jaundice and is taking lactulose 4 times a day. She has been on IV vancomycin and Zosyn since admission 4 days ago for possible cholangitis and her white blood cell count has been steadily rising. Mother and sisiter are at bedside and reports patient has been on Prednisone for many years and unsure whether she has had primary sclerosing cholangitis. Since admission patient has met two SIRS criteria of leukocytosis white blood count > 12,000 and pulse 92 Labs on admission revealed leukocytosis 12.7 that has gradually increased to 17.7, bilirubin has increased from 6.1 to now 12.1 Imaging: KUB reveals biliary drainage catheter in place and a second drainage catheter is in place from a more inferior approach. Cultures: None Antibiotics IV vancomycin and Zosyn for concern for cholangitis Procedures: Biliary drain replacement 01/10/17. Other consultants oncology, palliative care, interventional radiology Today the patient appears ill, lethargic, and complains of abdominal pain after biliary drain was replaced today. NGT was removed today. She follows basic commands but appears confused. Patient has new stage 2 sacral decubitus ulcer and rectal tube was inserted today. CC: Alannah Gardiner MD Past Med Surg Social Fam HX - Past Medical History Medical history: arthritis, cancer, COPD, hyperlipidemia, hypertension, liver disease, other Psychiatric history: anxiety, bipolar, depression - Past Surgical History Surgical History: appendectomy, knee replacement, orthopedic, other, other - Social History Smoking Status: Current every day smoker Smokeless Tobacco Status: No Alcohol use: none Drug use: none - Family History Brother Living Status: Hx Family Cancer: Yes (Colon cancer) Mother Adopted: No Living Status: Still Living Hx Family Endocrine Disorder: Yes (DM) Infectious Disease-CN:Meds Buspirone [Buspar] 15 mg PO BID 02/14/15 [History] Diltiazem CD (24hr) [Cardizem CD] 180 mg PO DAILY 08/25/15 [History] ARIPiprazole [Abilify] 10 mg PO DAILY 10/27/16 [History] Duloxetine HCl [Cymbalta] 60 mg PO BID 10/27/16 [History] lamoTRIgine [Lamotrigine] 200 mg PO DAILY 10/28/16 [History] Docusate Sodium [Dok] 100 mg PO BID 12/17/16 [History] Sennosides [Senna] 8.6 mg PO DAILY 12/17/16 [History] clonazePAM [Klonopin] 1 mg PO TID PRN #10 tablet 12/21/16 [Rx] Nicotine Patch [Nicoderm] 14 mg TD DAILY 12/29/16 [History] Morphine Immed Rel [Morphine Sulfate] 15 mg PO Q6H PRN 12/30/16 [History] Morphine Sulfate [Arymo ER] 15 mg PO Q12H PRN 12/30/16 [History] Albuterol Sulfate [Ventolin Hfa] 2 puff IH Q4H PRN 01/06/17 [History] Aspirin [Lo-Dose Aspirin EC] 81 mg PO DAILY 01/06/17 [History] Lactulose 20 gm PO QID 01/06/17 [History] Omeprazole [PriLOSEC] 20 mg PO DAILY 01/06/17 [History] Allergies acetaminophen [From Percocet] Allergy (Verified 01/06/17 12:07) Itching Oxycodone [From Percocet] Allergy (Verified 01/06/17 12:07) Itching Review of systems: Travel: denies recent travel Animal exposure: denies Sick contacts: Denies. denies exposed to small children. Diet: denies ingestion of undercooked or raw meats. Dental: denies recent dental procedures - Constitutional Constitutional: Absent: chills, fever(s), night sweats, weight gain, weight loss - EENT Eyes: Absent: change in vision Ears: Absent: decreased hearing Nose, mouth and throat: Absent: nasal congestion, nasal discharge, post-nasal drip, sinus pressure, sore throat - Cardiovascular Cardiovascular: Absent: chest pain, orthopnea, palpitations - Respiratory Respiratory: Absent: cough, hemoptysis, dyspnea on exertion, wheezing - Gastrointestinal Gastrointestinal: Present: abdominal pain, nausea. Absent: constipation, diarrhea - Genitourinary Genitourinary: Absent: dysuria, hematuria, urinary frequency - Musculoskeletal Musculoskeletal: Absent: arthralgias, muscle cramps, myalgias - Integumentary Integumentary: Absent: change in hair, change in nails, rash - Endocrine Endocrine: Absent: polydipsia, polyphagia, polyuria - Hematologic/Lymphatic Hematologic/Lymphatic: Absent: easy bleeding, easy bruising Exam - Constitutional Vitals: Temp Pulse Resp BP Pulse Ox 98.8 F 79 16 122/77 97 01/10/17 03:32 01/10/17 07:00 01/10/17 07:00 01/10/17 07:00 01/10/17 07:00 General appearance: cooperative, obese Exam: Appears ill, lethargic, jaundice, A&O 0 - Head Head exam: Present: atraumatic, normal inspection, normocephalic - Eye Eye exam: Present: PERRL, conjuntiva pink. Absent: conjunctival injection - ENT ENT exam: Present: mucous membranes moist, normal oropharynx Additional comments: NG tube removed - Neck Neck exam: Present: normal inspection. Absent: lymphadenopathy, tenderness, thyromegaly - Respiratory Respiratory exam: Present: CTAB - Cardiovascular Cardiovascular exam: Present: RRR, +S1, +S2. Absent: diastolic murmur, systolic murmur - GI/Abdominal GI/Abdominal exam: Present: distended (Ascites), normal bowel sounds, soft, tenderness (Appropriate) Additional comments: Percutaneous drainage tube [address] D[address] C/D/I, no surrounding erythema - Rectal Additional comments: rectal tube in place - Extremities Exam Extremities exam: Present: normal inspection, pedal edema (+1) - Skin Skin exam: Present: erythema (stage 2 sacral decubitus ulcer over coccyx), warm. Absent: rash Infectious Disease CN: Results - Labs CBC & Chem 7: 01/10/17 04:30 01/10/17 04:30 Serology: Serology 01/09/17 Range/Units 02:03 Stl C. diff Tox B Gene Negative (Negative) Consult Discharge Plan - Plan Referrals: NONE,PCP [Primary Care Provider] - - Attending Attestation I examined this patient and my medical decision-making was reviewed with the Resident Physician. I agree with the documented findings, disposition and treatment plan as described except to the extent set forth below. Patient is a 66-year-old female admitted to [place] on 01/06/2017 with altered mental status secondary to hepatic encephalopathy, we are consulted on 2016 for persistent leukocytosis. Patient with past medical history including history of ulcerative colitis not sure what it was diagnosed and not currently on any immunosuppressive therapy, intrahepatic cholangiocarcinoma with metastases with very poor prognosis not candidate for chemotherapy with significant cholestasis status post stent placements was transferred to [place] for altered mental status. Since an admission patient has been afebrile, heart rate within normal limits, WBC running in the 13-17,000 range with normal differential for the most part and no bandemia. Patient also was in acute kidney injury likely to prerenal ischemia which has since then resolved. Patient also has hyperbilirubinemia, elevated LFTs and alkaline phosphatase, and an ammonia level of 65. Patients meld score on admission was 26 and currently is down to 22. At this point this case presents a complicated medical picture. There is no obvious source of infection. The leukocytosis could be due to the cancer itself or may be a UC exacerbation or even infection I would recommend a CT abdomen and pelvis with oral contrast, I will stop vancomycin and continue Zosyn for now (since zosyn covers gram negatives, anaerobes and enterococcus and no high index of suspicion for MRSA. Once the CT is finalize if there is no signs of infection intra-abdominally I will DC all antibiotics and observe. Well discuss with the primary team. Prognosis overall guarded.
[2017-01-10] MEDS: Aspirin Enteric Coated 81 MG Tablet PO SCH (09:55)
[2017-01-10] MEDS: ARIPiprazole 10 MG TABLET PO SCH (09:55)
[2017-01-10] MEDS: Lactulose Oral Soln 20 GM/30 ML UDC PO SCH ×3 (09:55→20:39)
[2017-01-10] MEDS: lamoTRIgine 100 MG TABLET PO SCH (09:56)
[2017-01-10] MEDS: Nicotine 14 MG PATCH.TD24 TD SCH (09:56)
--- NOTE | 2017-01-10 10:30 | Oncology Inp Progress Note ---
Date of Encounter: 01/10/17 Time of Encounter: 10:27 (1) Intrahepatic cholangiocarcinoma Current Visit: No Status: Chronic Assessment and plan: - Unresectable. - Unfortunately her clinical status remains poor, with worsening cholestasis, persistent encephalopathy and poor performance status. - Biliary drain was replaced today, hopefully this will improve her hyperbilirrubinemia that has been trending up previously. - If there is not improvement of her clinical status during the next few days, comfort measures would be a reasonable approach, specially if her bilirrubin values keep worsening (what along with her poor performance status, would make a poor candidate for palliative chemotherapy). Palliative care on board. - If her condition improves, she will need to follow up with medical oncologist and radiation oncologist ( Dr. Byrnes) to discuss palliative chemo/radiation. (2) Obstructive jaundice Current Visit: Yes Status: Chronic Assessment and plan: Management as described above. IR drain placed today. Follow up total and direct and indirect billirrubin in AM (3) Acute encephalopathy Current Visit: No Status: Acute Assessment and plan: - Continue management as per primary team recommendations. Being management with lactulose. - She is currently receiving nutrition by feeding tube ( at goal). May consider PO once her mental status has improved and cleared by speech therapy. Oncology: Subj Interval history: Patient seen after replacement of IR biliary drainage; noticed to be lethargic, reports abdominal pain and follow basic commands. Feeding tube in place at goal. 2 biliary drains noticed. No family present at the bedside. - Constitutional Vitals: Vital Signs Temp Pulse Resp BP Pulse Ox 01/10/17 07:00 79 16 122/77 97 01/10/17 04:36 18 93 01/10/17 03:32 98.8 F 81 118/64 93 01/10/17 00:00 98.7 F 85 18 116/77 97 01/09/17 20:20 86 01/09/17 20:00 16 93 01/09/17 18:47 98.9 F 78 16 134/74 86 01/09/17 15:55 18 91 01/09/17 15:47 98.0 F 75 18 126/64 91 01/09/17 11:27 97.9 F 78 18 98/56 93 Intake and Output 01/09/17 01/10/17 01/10/17 23:59 07:59 15:59 Intake Total 1507 / 1507 1833 / 1833 Output Total 250 / 250 250 / 250 Balance 1257 / 1257 1583 / 1583 Intake: IV Fluids 622 / 622 1100 / 1100 0.9 % Sodium Chloride 1, 1000 / 1000 000 ML @ 50 mls/hr IVC . Q20H [facility] Rx#:[id number] Zosyn 3.375 GM In 100 / 100 100 / 100 Dextrose 5% (Minibag+) 100 ML 100 ML @ 25 mls/hr IVPB Q8HR [facility] Rx#: [id number] KCl 40 MEQ Xylocaine 2 ML 522 / 522 In Dextrose 5% 500 ML @ 130.5 mls/hr IVPB Q4H [facility] Rx#:[id number] Oral 0 / 0 Tube Feeding 625 / 625 693 / 693 Free Water 100 / 100 Free Water Intake Amount 160 / 160 40 / 40 Output: Urine 0 / 0 0 / 0 Wound Drainage 250 / 250 250 / 250 Left Upper Abdomen 75 / 75 150 / 150 Right Lateral Abdomen 175 / 175 100 / 100 Other: Stool Size Small Moderate Stool Consistency loose loose liquid liquid Stool Color Yellow Brown Pale Yellow # Bowel Movements 5 1 Weight 77.4 kg Blood Glucose* 146 Patient Weight 01/10/17 23:59 Weight 77.4 kg Exam: lethargic - Head Head exam: Present: normal inspection - Neck Neck exam: Absent: tenderness - Respiratory Respiratory exam: Present: CTAB. Absent: rales, respiratory distress - Cardiovascular Cardiovascular exam: Present: +S1. Absent: diastolic murmur - GI/Abdominal GI/Abdominal exam: Present: distended, tenderness. Absent: rebound Additional comments: Diffuse abdominal tenderness but no rebound tenderness. BS present right and left sided biliary drain noticed, patent with small amount of biliary fluid. feeding tube in place. - Extremities Exam Extremities exam: Present: pedal edema - Neurological Exam Additional comments: Oriented x 2. lethargic Oncology: Obj Data - Labs CBC & Chem 7: 01/10/17 04:30 01/10/17 04:30 Labs: Laboratory Results - last 24 hr 01/08/17 01/09/17 01/09/17 20:22 00:19 06:09 WBC RBC Hgb Hct MCV MCH MCHC RDW Plt Count MPV Seg Neutrophils % Lymphocytes % Monocytes % Neutrophils # Lymphocytes # Monocytes # Nucleated RBCs/100 WBC Platelet Estimate Polychromasia Anisocytosis Sodium Potassium Chloride Carbon Dioxide BUN Creatinine Est GFR ( Amer) Est GFR (Non-Af Amer) BUN/Creatinine Ratio Glucose POC Glucose 121 H 138 H 128 H Calculated Osmolality Calcium Phosphorus Magnesium Total Bilirubin AST ALT Alkaline Phosphatase Serum Total Protein Albumin Globulin Albumin/Globulin Ratio 01/09/17 01/09/17 01/10/17 12:12 18:19 00:06 WBC RBC Hgb Hct MCV MCH MCHC RDW Plt Count MPV Seg Neutrophils % Lymphocytes % Monocytes % Neutrophils # Lymphocytes # Monocytes # Nucleated RBCs/100 WBC Platelet Estimate Polychromasia Anisocytosis Sodium Potassium Chloride Carbon Dioxide BUN Creatinine Est GFR ( Amer) Est GFR (Non-Af Amer) BUN/Creatinine Ratio Glucose POC Glucose 150 H 179 H 163 H Calculated Osmolality Calcium Phosphorus Magnesium Total Bilirubin AST ALT Alkaline Phosphatase Serum Total Protein Albumin Globulin Albumin/Globulin Ratio 01/10/17 01/10/17 04:30 04:30 WBC 17.7 H RBC 3.57 L Hgb 10.7 L Hct 33.6 L MCV 94.1 MCH 30.0 MCHC 31.8 RDW 21.2 H Plt Count 172 MPV 10.1 Seg Neutrophils % 88.0 Lymphocytes % 6.0 Monocytes % 6.0 Neutrophils # 15.6 H Lymphocytes # 1.1 Monocytes # 1.1 Nucleated RBCs/100 WBC 0.6 H Platelet Estimate Normal Polychromasia 3+ A Anisocytosis 2+ A Sodium 145 Potassium 3.5 Chloride 118 H Carbon Dioxide 19 BUN 13 Creatinine 0.82 Est GFR ( Amer) > 60 Est GFR (Non-Af Amer) > 60 BUN/Creatinine Ratio 16 Glucose 131 H POC Glucose Calculated Osmolality 302 H Calcium 8.6 Phosphorus 1.7 L Magnesium 1.8 Total Bilirubin 12.1 H AST 77 H ALT 69 H Alkaline Phosphatase 418 H Serum Total Protein 5.4 L Albumin 1.6 L Globulin 3.8 H Albumin/Globulin Ratio 0.4 L - Impressions Impressions KUB X-Ray 01/09/17 11:25 IMPRESSION: One biliary drainage catheter has been removed and a new biliary drainage catheter is in place. A second drainage catheter is in place from a more inferior approach. The bowel gas pattern is unremarkable. D/ / 01/09/2017 12:42:30 Seymour Lynn MD / Aniya Mahajan Interpreting Provider: Seymour Lynn MD Consult Discharge Plan - Plan Referrals: NONE,PCP [Primary Care Provider] -
--- NOTE | 2017-01-10 10:45 | Internal Med Progress Note ---
Date of Encounter: 01/10/17 Time of Encounter: 10:44 - Assessment and plan (1) Hepatic encephalopathy Current Visit: Yes Status: Acute Assessment and plan: Secondary to underlying malignancy Given initial presentation, concern for sepsis secondary to cholangitis, will continue IV abx at this time Infectious disease consultation requested given persistent leukocytosis despite being on IV abx Oncology and Palliative care on board and consultations greatly appreciated Goals of care and code status has been discussed in great detail with the POA continue ani-emetics, IV fluids at this time Lactulose TID to titrate to 3-4 BM daily (2) Acute kidney injury Current Visit: No Status: Acute Assessment and plan: Likely secondary to underlying infection will continue to closely monitor renal function back to baseline (3) Biliary drain displacement Current Visit: No Status: Chronic Assessment and plan: IR consultation appreciated Biliary drain replaced (01/10/17) Qualifiers: Encounter type: initial encounter Qualified Code(s): T85.520A - Displacement of bile duct prosthesis, initial encounter (4) Bipolar disease, chronic Current Visit: No Status: Chronic (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 Current Visit: Yes Status: Chronic Assessment and plan: Oncology on board and consultation appreciated if patient does not clinically improve, family will consider comfort care measures (6) COPD (chronic obstructive pulmonary disease) Current Visit: No Status: Chronic Assessment and plan: not in acute exacerbation continue bronchodilator support and O2 supplementation Qualifiers: COPD type: unspecified COPD Qualified Code(s): J44.9 - Chronic obstructive pulmonary disease, unspecified (7) DVT prophylaxis Current Visit: No Status: Acute Assessment and plan: Heparin SQ (8) Fall Current Visit: No Status: Chronic Assessment and plan: s/p fall prior to hospitalization no internal bleed reported skin laceration noted to forehead will maintain fall precautions maintain fall precautions Qualifiers: Encounter type: initial encounter Qualified Code(s): W19.XXXA - Unspecified fall, initial encounter (9) Goals of care, counseling/discussion Current Visit: Yes Status: Acute (10) Hypokalemia Current Visit: No Status: Resolved (11) Obstructive jaundice Current Visit: Yes Status: Chronic - Subjective Interval history: Patient seen and examined. Resting in bed, mental status unchanged from previous day. able to communicate but still remains confused. denies any pain at this time. Pt was able to participate with speech therapy and started on diet as per speech therapist recommendations. Pt had her biliary drain replaced today (01/10/17). No overnight issues reported. - Constitutional Vitals: Temp Pulse Resp BP Pulse Ox 98.8 F 79 16 122/77 97 01/10/17 03:32 01/10/17 07:00 01/10/17 07:00 01/10/17 07:00 01/10/17 07:00 General appearance: Present: A&O X 0 (jaundiced, NGT intact), no acute distress (jaundiced, NGT in place) - Head Head exam: Present: atraumatic, normocephalic - Eye Eye exam: Present: conjuntiva pink, sclera anicteric - Respiratory Respiratory exam: Absent: respiratory distress, wheezes - Cardiovascular Cardiovascular exam: Present: RRR, +S1, +S2. Absent: diastolic murmur, gallop, rubs, systolic murmur - GI/Abdominal GI/Abdominal exam: Present: distended, normal bowel sounds, soft. Absent: tenderness - Extremities Exam Extremities exam: Present: pedal edema, warm, radial pulses palpable and symetrical. Absent: calf tenderness Internal Medicine: Result - Labs CBC & Chem 7: 01/10/17 04:30 01/10/17 04:30 Labs: Short CBC 01/10/17 Range/Units 04:30 WBC 17.7 H (4.3-11.1) K/mcL Hgb 10.7 L (11.5-15.4) g/dL Hct 33.6 L (35.3-44.9) % Plt Count 172 (140-400) K/mcL Neutrophils # 15.6 H (1.6-8.9) K/mcL BMP 01/10/17 04:30 Sodium 145 Potassium 3.5 Chloride 118 H Carbon Dioxide 19 BUN 13 Creatinine 0.82 Glucose 131 H Calcium 8.6 Liver Function 01/10/17 Range/Units 04:30 Total Bilirubin 12.1 H (0.2-1.2) mg/dL AST 77 H (5-34) Units/L ALT 69 H (0-55) Units/L Alkaline Phosphatase 418 H (38-126) Units/L Albumin 1.6 L (3.5-5.0) g/dL - Impressions Impressions KUB X-Ray 07/30/17 11:25 IMPRESSION: One biliary drainage catheter has been removed and a new biliary drainage catheter is in place. A second drainage catheter is in place from a more inferior approach. The bowel gas pattern is unremarkable. D/ / 01/09/2017 12:42:30 Seymour Lynn MD / Aniya Mahajan Interpreting Provider: Seymour Lynn MD Consult Discharge Plan - Plan Referrals: NONE,PCP [Primary Care Provider] -
[2017-01-10] MEDS: *HR* Morphine 2 MG/ML SYRINGE IVP PRN ×2 (17:03→20:39)
[2017-01-10] MEDS: Silvasorb 44.4 ML TUBE TP SCH (21:05)
[2017-01-10] MEDS ORDERED: Vancomycin 1,250 MG in D5% in Water 250 ML IVPB SCH (23:00)
[2017-01-11] MEDS: Piperacillin/Tazobactam 3.375 GM in D5% in Water (Mini-Bag+) 100 ML IVPB SCH ×2 (00:02→09:53)
[2017-01-11] MEDS: Ipratropium/Albuterol Neb 3 ML IH SCH ×3 (04:17→16:53)
[2017-01-11 04:38] LABS: Basophils # 0.1 K/mcL (0.0-0.2); Basophils % 0.5 %; Eosinophils % 0.1 %; Hematocrit 35.7 % (35.3-44.9); Hemoglobin 11.5 g/dL (11.5-15.4); Immature Granulocytes % 4.7 % (0-4); Lymphocytes # 1.9 K/mcL (0.6-4.6); Lymphocytes % 10.1 %; Mean Corpuscular HGB Conc 32.2 g/dL (31.6-35.5); Mean Corpuscular Volume 96.2 fL (83.0-100.0); Mean Platelet Volume 11.3 fL (9.4-12.4); Monocytes % 5.4 %; Nucleated Red Blood Cells 0.9 /100 WBC (0); Platelet Count 154 K/mcL (140-400); Red Blood Count 3.71 M/mcL (3.82-4.97); Red Cell Distribution Width 22.6 % (11.5-14.5); Segmented Neutrophils % 79.2 %
[2017-01-11 04:49] LABS: Calcium 8.6 mg/dL (8.6-10.8); Magnesium 1.9 mg/dL (1.6-2.6); Potassium 3.9 mEq/L (3.5-4.5)
[2017-01-11] MEDS: Pantoprazole 40 MG VIAL IVP SCH (05:28)
[2017-01-11] MEDS: *HR* Heparin 5,000 UNIT/ML VIAL SQ SCH (05:28)
[2017-01-11] MEDS: clonazePAM 1 MG TABLET PO PRN (05:30)
--- NOTE | 2017-01-11 07:45 | Infectious Disease Progress No ---
Date of Encounter: 01/11/17 Time of Encounter: 07:45 - Assessment and Plan (1) Sepsis Current Visit: Yes Status: Acute Lactic acid 3.6. Worsening leukocytosis increased to 18.9, concerning for possible sbp, might need to consider paracentesis. CT abd/plv reveals pneumatosis coli suspected, extensive ascitic fluid accumulation in the abdomen and pelvis with simple Hounsfield attenuation. The amount of fluid has notably increased in the interval Unable to give IV fluid bolus secondary to significant fluid overload/ ascites. CXR reveals Bibasilar atelectasis, right greater than left. Patient has a port right chest with no signs of infection Cultures: Blood and urine cutures collected Creatinine clearance 64 Recommendations: Code status changed to DNR-CC Comfort Care today per palliative care team Discontinue antibiotics. Prognosis poor. Thank you for allowing us to participate in the care of this patient. Qualifiers: Sepsis type: sepsis due to unspecified organism Qualified Code(s): A41.9 - Sepsis, unspecified organism (2) Leukocytosis Current Visit: Yes Status: Acute See above. 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 Oncology and Palliative care following. 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 (6) Obstructive jaundice Current Visit: Yes Status: Chronic See above - Subjective Interval history: Patient has acutely declined overnight. Patient is very somnolent, but responsive to verbal and painful stimuli, she is very tachypneic on exam and is using accessory muscles to breathe. Patient unable take lactulose this morning due to inability to swallow and worsening status CT brain /CT of the pelvis ordered. Family is not present. Infect Dis PN-Objective Data - Labs CBC & Chem 7: 01/11/17 04:15 01/11/17 04:15 Labs: Laboratory Results - last 24 hr 01/10/17 01/10/17 01/10/17 06:01 11:16 19:31 WBC RBC Hgb Hct MCV MCH MCHC RDW Plt Count MPV Immature Gran % Seg Neutrophils % Lymphocytes % Monocytes % Eosinophils % Basophils % Neutrophils # Lymphocytes # Monocytes # Eosinophils # Basophils # Nucleated RBCs/100 WBC Sodium Potassium Chloride Carbon Dioxide BUN Creatinine Est GFR ( Amer) Est GFR (Non-Af Amer) BUN/Creatinine Ratio Glucose POC Glucose 146 H 154 H 145 H Calculated Osmolality Calcium Phosphorus Magnesium Vancomycin Trough 01/10/17 01/11/17 01/11/17 21:00 00:13 04:15 WBC 18.9 H RBC 3.71 L Hgb 11.5 Hct 35.7 MCV 96.2 MCH 31.0 MCHC 32.2 RDW 22.6 H Plt Count 154 MPV 11.3 Immature Gran % 4.7 H Seg Neutrophils % 79.2 Lymphocytes % 10.1 Monocytes % 5.4 Eosinophils % 0.1 Basophils % 0.5 Neutrophils # 15.0 H Lymphocytes # 1.9 Monocytes # 1.0 Eosinophils # 0.0 Basophils # 0.1 Nucleated RBCs/100 WBC 0.9 H Sodium Potassium Chloride Carbon Dioxide BUN Creatinine Est GFR ( Amer) Est GFR (Non-Af Amer) BUN/Creatinine Ratio Glucose POC Glucose 111 H Calculated Osmolality Calcium Phosphorus Magnesium Vancomycin Trough 11.8 01/11/17 04:15 WBC RBC Hgb Hct MCV MCH MCHC RDW Plt Count MPV Immature Gran % Seg Neutrophils % Lymphocytes % Monocytes % Eosinophils % Basophils % Neutrophils # Lymphocytes # Monocytes # Eosinophils # Basophils # Nucleated RBCs/100 WBC Sodium 146 H Potassium 3.9 Chloride 120 H Carbon Dioxide 16 L BUN 21 H Creatinine 1.11 Est GFR ( Amer) 60 Est GFR (Non-Af Amer) 49 L BUN/Creatinine Ratio 19 Glucose 148 H POC Glucose Calculated Osmolality 308 H Calcium 8.6 Phosphorus 3.0 D Magnesium 1.9 Vancomycin Trough Cultures: Serology 01/09/17 Range/Units 02:03 Stl C. diff Tox B Gene Negative (Negative) - Impressions Impressions Catheter Placement 01/10/17 00:00 IMPRESSION: Good position of the patient's external biliary drainage catheter with spontaneous flow of contrast to the duodenum D/ / Richard Quinn MD / Richard Quinn MD Interpreting Provider: Richard Quinn MD Cholangiogram 01/10/17 00:00 IMPRESSION: Good position of the patient's external biliary drainage catheter with spontaneous flow of contrast to the duodenum D/ / 01/10/2017 13:33:23 [facility] MD [facility] Interpreting Provider: Richard Quinn MD Impressions Chest X-Ray 01/11/17 11:54 IMPRESSION: 1. Right chest port appears unchanged in position. 2. Bibasilar atelectasis, right greater than left. D/ / Truman Olea MD / Truman Olea MD Interpreting Provider: Truman Olea MD Head CT 01/11/17 13:18 IMPRESSION: No acute intracranial abnormality. Improving left forehead subcutaneous contusion. D/ / 01/11/2017 15:39:21 Abdirizak Moreno MD / [facility] Interpreting Provider: Abdirizak Moreno MD Abdomen/Pelvis CT 01/11/17 13:30 IMPRESSION: 1. Mild airspace disease in the bilateral lower lobes may be present however some motion does limit this evaluation. 2. Infiltrative lesion within much of the right hepatic lobe as well as innumerable small scattered hypodense lesions within the remaining hepatic parenchyma. Hepatomegaly identified. 3. Echogenic appearance of the gallbladder 4. Focal area of decreased attenuation in the spleen measuring up to 26 mm. This was not appreciated on the unenhanced evaluation from January 05. 5. 12 mm left adrenal gland nodule, not definitely an adenoma on the basis of this evaluation. 6. Pneumatosis coli suspected. 7. Extensive ascitic fluid accumulation in the abdomen and pelvis with simple Hounsfield attenuation. The amount of fluid has notably increased in the interval. D/ / Shashank Ivy / Shashank Ivy Interpreting Provider: Shashank Ivy Exam - Constitutional Vitals: Temp Pulse Resp BP Pulse Ox 97.9 F 97 18 114/62 93 01/11/17 06:33 01/11/17 06:33 01/11/17 06:33 01/11/17 06:33 01/11/17 06:33 General appearance: obese, no cooperative Exam: very somnolent, but responsive to verbal and painful stimuli, she is very tachypneic on exam and is using accessory muscles to breathe. - Head Head exam: Present: normocephalic Additional comments: Contusion to forehead - Eye Additional comments: Pupil are dilated bilaterally but reactive to light - ENT ENT exam: Present: mucous membranes dry, normal oropharynx - Neck Neck exam: Present: normal inspection, tenderness. Absent: lymphadenopathy, thyromegaly - Respiratory Respiratory exam: Present: accessory muscle use, respiratory distress, tachypnea. Absent: CTAB - Cardiovascular Cardiovascular exam: Present: +S1, +S2, systolic murmur, tachycardia. Absent: diastolic murmur Additional comments: port in place right upper chest - GI/Abdominal GI/Abdominal exam: Present: diminished bowel sounds, distended, firm, organomegaly, rebound. Absent: guarding - Extremities Exam Extremities exam: Present: normal capillary refill. Absent: pedal edema, tenderness - Neurological Exam Neurological exam: Present: alert, altered. Absent: oriented X3 Additional comments: very somnolent, but responsive to verbal and painful stimuli - Skin Skin exam: Present: rash Additional comments: Jaundice slightly improved, stage II sacral decubitus ulcer Consult Discharge Plan - Plan Referrals: NONE,PCP [Primary Care Provider] - - Attending Attestation I examined this patient and my medical decision-making was reviewed with the Resident Physician. I agree with the documented findings, disposition and treatment plan as described except to the extent set forth below. Patient has taken a turn to the worse clinically. Patient is currently tachycardic, hypotensive and unresponsive. CT of the abdomen and pelvis reviewed. Prognosis dismal. Patient being transferred to hospice care. We'll sign off
--- NOTE | 2017-01-11 08:42 | Internal Med Progress Note ---
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 She has been admitted with confusion and has following main issues: #1 altered mental status could be multifactorial, including etiologies are encephalopathic, sepsis/cholangitis, obstructive jaundice. Continue monitoring labs including CBC CMP and work with consultants. Discussed with case management. Patient quite confused #2 obstructive jaundice: On 01/10 external biliary catheter replaced hoping to see if total bilirubin count can go down, check CMP periodically #3 leukocytosis: Question etiology. Initially on vancomycin and Zosyn but infectious disease has taken her off vancomycin. Other sources could be her port #4 disposition: Oncology is assessing if patient obstructive jaundice or leukocytosis improved where she can be a candidate for for palliative chemotherapy otherwise hospice care is suggested. Per previous hospitalist sign out patient is a DNR now? We will discuss this issue in PCR today. #5 chronic issues like hypertension COPD bipolar disorder apparently stable Patient was seen this morning. She is obtunded her pupils are dilated but reactive and she is very tachypneic. She is not following commands. We had multidisciplinary round and discuss her condition. Family was requested and palliative care has just informed me the family has decided to make her hospice care. Palliative care has written orders and at this point all labs will be discontinued. Patient will be comfort measures only and transferred out of to [facility] to - Constitutional Vitals: Temp Pulse Resp BP Pulse Ox 97.9 F 97 18 114/62 93 01/11/17 06:33 01/11/17 06:33 01/11/17 06:33 01/11/17 06:33 01/11/17 06:33 General appearance: Present: disheveled, severe distress - Head Head exam: Present: atraumatic, normocephalic - Eye Additional comments: Pupils dilated bilaterally reactive to light - Neck Neck exam general surgery: Present: supple, trachea midline. Absent: lymphadenopathy - Respiratory Respiratory exam: Present: CTAB. Absent: accessory muscle use, rales, rhonchi, wheezes - Cardiovascular Cardiovascular exam: Present: RRR, +S1, +S2. Absent: diastolic murmur, gallop, rubs, systolic murmur - GI/Abdominal GI/Abdominal exam: Present: normal bowel sounds, soft, no peritoneal signs. Absent: distended, tenderness - Extremities Exam Extremities exam: Present: warm, radial pulses palpable and symetrical. Absent : calf tenderness, cyanotic, pedal edema - Neurological Exam Neurological exam: Present: speech deficit Additional comments: Patient is obtunded and does not follow commands and does not open her eyes and withdraws to pain stimulus - Skin Skin exam: Present: dry, intact Internal Medicine: Result - Labs CBC & Chem 7: 01/11/17 04:15 01/11/17 04:15 Labs: Short CBC 01/11/17 Range/Units 04:15 WBC 18.9 H (4.3-11.1) K/mcL Hgb 11.5 (11.5-15.4) g/dL Hct 35.7 (35.3-44.9) % Plt Count 154 (140-400) K/mcL Neutrophils # 15.0 H (1.6-8.9) K/mcL BMP 01/11/17 04:15 Sodium 146 H Potassium 3.9 Chloride 120 H Carbon Dioxide 16 L BUN 21 H Creatinine 1.11 Glucose 148 H Calcium 8.6 - Impressions Impressions Catheter Placement 01/10/17 00:00 IMPRESSION: Good position of the patient's external biliary drainage catheter with spontaneous flow of contrast to the duodenum D/ / Richard Quinn MD / Richard Quinn MD Interpreting Provider: Richard Quinn MD Cholangiogram 01/10/17 00:00 IMPRESSION: Good position of the patient's external biliary drainage catheter with spontaneous flow of contrast to the duodenum D/ / 01/10/2017 13:33:23 Richard Quinn MD / [facility] Interpreting Provider: Richard Quinn MD Consult Discharge Plan - Plan Referrals: NONE,PCP [Primary Care Provider] -
[2017-01-11] MEDS: ARIPiprazole 10 MG TABLET PO SCH (09:54)
[2017-01-11] MEDS: Lactulose Oral Soln 20 GM/30 ML UDC PO SCH (09:54)
[2017-01-11] MEDS: Aspirin Enteric Coated 81 MG Tablet PO SCH (09:54)
[2017-01-11] MEDS: Silvasorb 44.4 ML TUBE TP SCH (09:55)
[2017-01-11] MEDS: Nicotine 14 MG PATCH.TD24 TD SCH (09:55)
[2017-01-11] MEDS: lamoTRIgine 100 MG TABLET PO SCH (09:55)
--- NOTE | 2017-01-11 09:56 | Palliative Progress Note ---
Date of Encounter: 01/11/17 Time of Encounter: 09:00 - Assessment and plan (1) Goals of care, counseling/discussion Current Visit: Yes Status: Acute Assessment and plan: Patient is DNRCC - A, DNI. Attempted to call daughter/POA Cinthia ([phone] ) and attempt to schedule a meeting but no answer. Called sister Zahra to give update and she reports that Cinthia is working today at [facility]. Called her cell number above and left message to return call to discuss patients POC. Patient WBC 18.9 trending up, s/p biliary tube reinsertion yesterday. Both biliary tubes draining bile. Recent bilirubin count remains elevated at 12.2. Patient in day 6 of hospital stay. Now with coccyx decubitus and wound care following. Infectious disease saw patient yesterday as well. I have followed progress closely and had numerous discussions with Cinthia. Patient was evaluated by Speech and diet was ordered and NG removed. This morning the patient is somnolent and unable to participate in care. Case discussed with Dr. Ramon. Oncology notes reviewed from weekend and patient still with little overall improvement and remains a poor prognosis for treatment at this time. Goals is to plan a meeting with Cinthia to discuss current condition. Will discuss case with Oncology today to obtain input as to prognosis. (2) Cancer associated pain Current Visit: Yes Status: Acute Assessment and plan: Patient has been to somnolent to report accurate pain assessment. No medication in past 12hrs. NG dc'd but patient unable to take po today d/t condition. Cont. IV morphine PRN. 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 Still confused with moaning. Unable to follow commands. NG removed yesterday but is somnolent this AM. - Constitutional Vitals: Abnormal lab results WBC 18.9 K/mcL (4.3-11.1) H 01/11/17 04:15 RBC 3.71 M/mcL (3.82-4.97) L 01/11/17 04:15 RDW 22.6 % (11.5-14.5) H 01/11/17 04:15 Immature Gran % 4.7 % (0-4) H 01/11/17 04:15 Neutrophils # 15.0 K/mcL (1.6-8.9) H 01/11/17 04:15 Nucleated RBCs/100 WBC 0.9 /100 WBC (0) H 01/11/17 04:15 Polychromasia 3+ (Not Present) A 01/10/17 04:30 Anisocytosis 2+ (Not Present) A 01/10/17 04:30 Sodium 146 mEq/L (136-145) H 01/11/17 04:15 Chloride 120 mEq/L (98-109) H 01/11/17 04:15 Carbon Dioxide 16 mEq/L (19-29) L 01/11/17 04:15 BUN 21 mg/dL (7-20) H 01/11/17 04:15 Est GFR (Non-Af Amer) 49 (> 60) L 01/11/17 04:15 Glucose 148 mg/dL (70-99) H 01/11/17 04:15 POC Glucose 111 (58-89) H 01/11/17 00:13 Calculated Osmolality 308 (280-300) H 01/11/17 04:15 Total Bilirubin 12.1 mg/dL (0.2-1.2) H 01/10/17 04:30 Direct Bilirubin 8.7 mg/dL (0.0-0.5) H 01/08/17 05:10 Indirect Bilirubin 2.6 mg/dL (0.0-1.2) H 01/08/17 05:10 AST 77 Units/L (5-34) H 01/10/17 04:30 ALT 69 Units/L (0-55) H 01/10/17 04:30 Alkaline Phosphatase 418 Units/L (38-126) H 01/10/17 04:30 Serum Total Protein 5.4 g/dL (6.0-8.3) L 01/10/17 04:30 Albumin 1.6 g/dL (3.5-5.0) L 01/10/17 04:30 Globulin 3.8 g/dL (2.4-3.5) H 01/10/17 04:30 Albumin/Globulin Ratio 0.4 (1.1-2.2) L 01/10/17 04:30 - Head Head exam: Present: atraumatic - Eye Eye exam: Present: scleral icterus - ENT ENT exam: Present: mucous membranes dry - Neck Neck exam: Present: tenderness - Respiratory Respiratory exam: Present: decreased breath sounds - Expanded Respiratory Exam Location: decreased breath sounds: Left, Right, Lower - Cardiovascular Cardiovascular exam: Present: RRR, +S1, +S2 - GI/Abdominal GI/Abdominal exam: Present: diminished bowel sounds, soft (Biliary drain x 2 draining yellowish bile rectal tube draining light brownish stool) - Rectal Rectal exam: Present: normal inspection (rectal tub in place) - Extremities Exam Extremities exam: Present: full ROM (patient with active ROM) - Neurological Exam Neurological exam: Present: altered (patient somnolent this AM. Moans to questions) - Psychiatric Psychiatric exam: Present: flat affect - Skin Additional comments: Coccy decubitus evaluated by Lakesha Marshall, Wound Care nurse. Care protocol ordered. Patient jaundiced Palliative Quality Palliative Quality: Screen for Code Status: Yes, Screen for Goals of Care: Yes, Screen for Pain: Yes, If Pain Regimen Started, Initiate Bowel Regimen: Yes, Screen for Nausea/Vomitting: Yes Code Status: 01/06/17 02:30 Resuscitation Status: Active [RES] Routine Comment: Resuscitation Status: Full Code 01/06/17 11:39 DNR [Resuscitation Status: Active] [RES] Routine Comment: NO vasopressors Resuscitation Status: [id number] - Labs CBC & Chem 7: 01/11/17 04:15 01/11/17 04:15 Labs: Laboratory Results - last 24 hr 01/10/17 01/10/17 01/10/17 06:01 11:16 19:31 WBC RBC Hgb Hct MCV MCH MCHC RDW Plt Count MPV Immature Gran % Seg Neutrophils % Lymphocytes % Monocytes % Eosinophils % Basophils % Neutrophils # Lymphocytes # Monocytes # Eosinophils # Basophils # Nucleated RBCs/100 WBC Sodium Potassium Chloride Carbon Dioxide BUN Creatinine Est GFR ( Amer) Est GFR (Non-Af Amer) BUN/Creatinine Ratio Glucose POC Glucose 146 H 154 H 145 H Calculated Osmolality Calcium Phosphorus Magnesium Vancomycin Trough 01/10/17 01/11/17 01/11/17 21:00 00:13 04:15 WBC 18.9 H RBC 3.71 L Hgb 11.5 Hct 35.7 MCV 96.2 MCH 31.0 MCHC 32.2 RDW 22.6 H Plt Count 154 MPV 11.3 Immature Gran % 4.7 H Seg Neutrophils % 79.2 Lymphocytes % 10.1 Monocytes % 5.4 Eosinophils % 0.1 Basophils % 0.5 Neutrophils # 15.0 H Lymphocytes # 1.9 Monocytes # 1.0 Eosinophils # 0.0 Basophils # 0.1 Nucleated RBCs/100 WBC 0.9 H Sodium Potassium Chloride Carbon Dioxide BUN Creatinine Est GFR ( Amer) Est GFR (Non-Af Amer) BUN/Creatinine Ratio Glucose POC Glucose 111 H Calculated Osmolality Calcium Phosphorus Magnesium Vancomycin Trough 11.8 01/11/17 04:15 WBC RBC Hgb Hct MCV MCH MCHC RDW Plt Count MPV Immature Gran % Seg Neutrophils % Lymphocytes % Monocytes % Eosinophils % Basophils % Neutrophils # Lymphocytes # Monocytes # Eosinophils # Basophils # Nucleated RBCs/100 WBC Sodium 146 H Potassium 3.9 Chloride 120 H Carbon Dioxide 16 L BUN 21 H Creatinine 1.11 Est GFR ( Amer) 60 Est GFR (Non-Af Amer) 49 L BUN/Creatinine Ratio 19 Glucose 148 H POC Glucose Calculated Osmolality 308 H Calcium 8.6 Phosphorus 3.0 D Magnesium 1.9 Vancomycin Trough - Impressions Impressions Catheter Placement 01/10/17 00:00 IMPRESSION: Good position of the patient's external biliary drainage catheter with spontaneous flow of contrast to the duodenum D/ / Richard Quinn MD / Richard Quinn MD Interpreting Provider: Richard Quinn MD Cholangiogram 01/10/17 00:00 IMPRESSION: Good position of the patient's external biliary drainage catheter with spontaneous flow of contrast to the duodenum D/ / 01/10/2017 13:33:23 Richard Quinn MD / [facility] Interpreting Provider: Richard Quinn MD Consult Discharge Plan - Plan Referrals: NONE,PCP [Primary Care Provider] -
[2017-01-11 11:05] VITALS: BP 96/58
--- NOTE | 2017-01-11 12:46 | Event Note ---
Date of Encounter: 01/11/17 Time of Encounter: 11:45 Daughter/SANDY Vicente returned call. Discussed patients current condition with elevated WBC and persistent bilirubin elevation. Explained that she was able to have NG tube removed after speech therapy evaluated her yesterday. However, today she is experiencing somnolence and the inability to take her medications. Cinthia working today. I explained that patient isn't improving and planned for meeting tomorrow at 2pm. I explained that patient has poor prognosis. She verbalized understanding and I informed her that additional diagnostics and labs were pending. We will plan to meet tomorrow at 2pm.
[2017-01-11] MEDS: *HR* Morphine 2 MG/ML SYRINGE IVP PRN (15:15)
--- NOTE | 2017-01-11 16:07 | Event Note ---
Date of Encounter: 01/11/17 Time of Encounter: 15:30 Conducted family meeting with daughters Cinthia (SANDY) and Zahra and son Danny. Patients mother also at bedside. Explained patients elevated temp, elevated WBC , and lactic acid. Reviewed CT of abdomen findings of ascites. Explained that patient is of poor prognosis and that over past 6 days patient has had optimal medical care with no improvement. Patient now with sepsis and somnolence. Family very emotional. Alberto Correiain and I provided support and answered questions. Gave family time to discuss. Family agree to transition patient to palliative care unit. I reviewed comfort care medications and will change Code status to DNR-CC Comfort Care. Case discussed with Dr. Ramon and Unruly BROOKS. The patient is terminal and will likely pass soon. Educated the family on comfort care and liberated visitation. Medications ordered for comfort.
[2017-01-11] MEDS ORDERED: *HR* LORazepam 2 MG/ML VIAL IVP PRN ×2 (16:10→17:27)
[2017-01-11] MEDS ORDERED: *HR* Morphine 2 MG/ML SYRINGE IVP PRN ×2 (16:11→17:27)
[2017-01-11] MEDS ORDERED: *HR* Promethazine 25 MG/ML VIAL IVP PRN (17:27)
[2017-01-11] MEDS ORDERED: Ipratropium/Albuterol Neb 3 ML IH PRN (17:27)
[2017-01-11] MEDS ORDERED: Aminoglycoside Consult 1 EACH MC ONE (18:58)
--- NOTE | 2017-01-17 09:14 | Discharge Summary ---
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 Priority: Secondary Status: Chronic (5) Obstructive jaundice Priority: Secondary Status: Chronic (6) COPD (chronic obstructive pulmonary disease) Priority: Secondary Status: Chronic Qualifiers: COPD type: unspecified COPD Qualified Code(s): J44.9 - Chronic obstructive pulmonary disease, unspecified - Discharge Medications Home Medications: Buspirone [Buspar] 15 mg PO BID 02/14/15 [History] Diltiazem CD (24hr) [Cardizem CD] 180 mg PO DAILY 08/25/15 [History] ARIPiprazole [Abilify] 10 mg PO DAILY 10/27/16 [History] Duloxetine HCl [Cymbalta] 60 mg PO BID 10/27/16 [History] lamoTRIgine [Lamotrigine] 200 mg PO DAILY 10/28/16 [History] Docusate Sodium [Dok] 100 mg PO BID 12/17/16 [History] Sennosides [Senna] 8.6 mg PO DAILY 12/17/16 [History] clonazePAM [Klonopin] 1 mg PO TID PRN #10 tablet 12/21/16 [Rx] Nicotine Patch [Nicoderm] 14 mg TD DAILY 12/29/16 [History] Morphine Immed Rel [Morphine Sulfate] 15 mg PO Q6H PRN 12/30/16 [History] Morphine Sulfate [Arymo ER] 15 mg PO Q12H PRN 12/30/16 [History] Albuterol Sulfate [Ventolin Hfa] 2 puff IH Q4H PRN 01/06/17 [History] Aspirin [Lo-Dose Aspirin EC] 81 mg PO DAILY 01/06/17 [History] Lactulose 20 gm PO QID 01/06/17 [History] Omeprazole [PriLOSEC] 20 mg PO DAILY 01/06/17 [History] Allergies/Adverse Reactions: Allergies acetaminophen [From Percocet] Allergy (Verified 01/06/17 12:07) Itching Oxycodone [From Percocet] Allergy (Verified 01/06/17 12:07) Itching Date of admission: 01/06/17 01:52 Primary care physician: PCP NONE Discharging clinician: Jurgen Ramon Anticipated date of discharge: 01/11/17 - Patient Status Disposition: - Discharge Instructions Follow Up With: NONE,PCP [Primary Care Provider] - Hospital course: Saba Talamantes is a 66-year-old female who has been diagnosed with metastatic cholangiocarcinoma. She has been admitted with confusion and has following main issues: #1 altered mental status could be multifactorial, including etiologies are encephalopathic, sepsis/cholangitis, obstructive jaundice. Continue monitoring labs including CBC CMP and work with consultants. Discussed with case management. Patient quite confused #2 obstructive jaundice: On 01/10 external biliary catheter replaced hoping to see if total bilirubin count can go down, check CMP periodically #3 leukocytosis: Question etiology. Initially on vancomycin and Zosyn but infectious disease has taken her off vancomycin. Other sources could be her port #4 disposition: Oncology is assessing if patient obstructive jaundice or leukocytosis improved where she can be a candidate for for palliative chemotherapy otherwise hospice care is suggested. Per previous hospitalist sign out patient is a DNR now? We will discuss this issue in PCR today. #5 chronic issues like hypertension COPD bipolar disorder apparently stable Patient was seen this morning. She is obtunded her pupils are dilated but reactive and she is very tachypneic. She is not following commands. We had multidisciplinary round and discuss her condition. Family was requested and palliative care has just informed me the family has decided to make her hospice care. Palliative care has written orders and at this point all labs will be discontinued. Patient will be comfort measures only and transferred out of to [address] Patient was slated transferred as palliative care/hospice and peacefully while family members were present around her. - Time Spent with Patient Total time spent providing and/or coordinating discharge services: Greater than 30 minutes - Constitutional Vitals: Temp Pulse Resp BP Pulse Ox 99.9 F H 102 30 96/58 87 01/11/17 11:02 01/11/17 11:02 01/11/17 11:17 01/11/17 11:02 01/11/17 11:17 General appearance: Present: disheveled, severe distress
== END 2017-01-11 18:59 | disposition expired | DRG 261 ==
LOC: 2NENU → 2ANU 01-11 18:17
PROVIDERS: ADMIT Internal Medicine Hematology & Oncology; ATTEND Internal Medicine